=== PATIENT | male | born 1950 | race Caucasian/White ===

== ENCOUNTER 2016-09-07 06:17 | Day surgery (SDC) | payer OTHER ==
[~2016-09-07] VITALS: Ht 176.5 cm; Wt 62.0 kg
[~2016-09-07 06:17] MED LIST: AMIT50TA3 PO; CLINDAMYCIN 600 MG/54 ML D5W IV SCH; D5W AND 1/4NSS 1,000 ML IV SCH; DIAZ-165 PO; ERGO500037 PO; FURO80TA63 PO; GLAT1INJ SQ; GLIP-197 PO; HYDR2TAB48 PO; INSDGI SC; LORA0.5T12 PO; LSX80 PO; NIFE1TAB55 PO; NITR0.4S UT; PROC25SU PR; SENN-63 PO; SIMV10TA2 PO
[2016-09-07 06:59] VITALS: BP 152/63; PULSE 68; TEMP 36.5; O2SAT 99; Ht 176.5 cm; Wt 62.0 kg
--- NOTE | 2016-09-07 07:35 | History and Physical ---
History & Physical C: End stage renal disease Malfunctioning LUE AVF HPI: Mr. Hines is a 63-year-old M with ESRD, He had a basilic vein transposition performed. The dialysis unit is having trouble running him. Denies LYNN, fever, chills, chest pain, SOB, abd pain, N/V, rest pain, other complaints. ALLERGIES ARE FIONA INHIBITORS, CODEINE, MOTRIN, PENICILLIN AND PRAVACHOL. Medications: As per his home list of medications. No changes. Past Medical History: Positive for diabetes and ESRD on HD. Past Surgical History: Positive for cholecystectomy, creation of LUE AVF in .. Family history is positive for heart disease and diabetes. Social History: He quit smoking in 2003 and he does not drink. Review of 10 systems was obtained and negative. On physical examination the patient is awake, oriented x3. Blood pressure is 140/70. Head and neck without any lymph nodes. No carotid bruits. Lungs are clear. Heart regular rate and rhythm. Abdomen is benign. No aneurysm or dilatation was appreciated. Vascular exam: Radials, carotids and superficial temporal arteries are +2 bilaterally. Femorals are +2. Neurologic exam is intact. LUE AVF with excellent thrill/bruit noted. + local ecchymosis. Imp: End stage renal disease on HD Malfunctioning LUE AVF Plan: Patient admitted for LUE AVF fistulagram with intervention. Procedure, risks , benefits and alternatives discussed with pt, he expresses understanding and agreement.
--- NOTE | 2016-09-07 07:35 | Procedure Note ---
Pre-Mod Sedation Assessment General Date of Moderate Sedation: Sep 07, 2016. Vital Signs: Vital Signs Past 12 Hours Date Time Temp Pulse Resp B/P Pulse Ox O2 Delivery O2 Flow Rate FiO2 09/07/16 06:59 36.5 68 20 152/63 99 Room Air Pre-Sedation Airway Assessment Oral Cavity: WNL Smoking Status: Former Smoker Mallampati Classification: Class I ASA Classification: Class II Notes The planned sedation has been discussed with the patient and consent obtained. I have identified the patient, determined the appropriateness of sedation and have assessed the patient immediately prior to the procedure. All medicine(s) and interventions are by my order.
[2016-09-07] MEDS ORDERED: MIDAZOLAM HCL 1 MG/ML 2ML VIAL ONE (08:14)
[2016-09-07] MEDS ORDERED: FENTANYL CITRATE INJ 50 MCG/1 ML 2 ML VIAL ONE (08:14)
[2016-09-07] MEDS ORDERED: MIDAZOLAM HCL 1 MG/ML 2ML VIAL IV ONE (08:43)
[2016-09-07] MEDS ORDERED: FENTANYL CITRATE INJ 50 MCG/1 ML 2 ML VIAL IV ONE (08:43)
[2016-09-07] MEDS ORDERED: LIDOCAINE HCL 1% 20 ML VIAL INJ ONE (08:51)
[2016-09-07] MEDS ORDERED: OPTIRAY 300 IV ONE (08:51)
--- NOTE | 2016-09-07 09:04 | Procedure Note ---
Post-Moderate Sedation Plan General Date of Moderate Sedation Sep 07, 2016. Vital Signs: Vital Signs Past 12 Hours Date Time Temp Pulse Resp B/P Pulse Ox O2 Delivery O2 Flow Rate FiO2 09/07/16 06:59 36.5 68 20 152/63 99 Room Air Review - Discharge Plan Post Moderate Sedation Plan: On clinical assessment, the patient appears to have tolerated the conscious sedation without complications. Patient is recovering as anticipated. Patient will continue to be monitored by nursing and may be discharged when conscious sedation discharge criteria are met.
--- NOTE | 2016-09-07 09:04 | [facility] Post Operative Brief Note ---
Immediate Operative Summary Operative Date Sep 07, 2016. Pre-Operative Diagnosis End stage renal disease on HD Malfunctioning LUE AVF Post-Operative Diagnosis Same Procedure(s) Performed Fistulogram Percutaneous Transluminal Angioplaty venous Moderate Conscious Sedation ([id number]) Surgeon Carly Van Driver Helper Surgeon(s) None Estimated Blood Loss 3 Findings no residual narrowing Specimens None Anesthesia Local with moderate conscious sedation Complication(s) None Disposition
--- NOTE | 2016-09-07 09:06 | Discharge Instructions ---
Discharge Instructions Visit Reason for Visit: Malfunctioning Arteriovenous Fistula Discharge Discharge Diagnosis / Problem: Malfunctioning left upper arm fistula Discharge Goals Goal(s): Therapeutic intervention Activity Recommendations Activity Limitations: per Instructions/Follow-up section Anesthesia . Post Anesthesia Instructions: If you have had General Anesthesia or IV Sedation: * Do not drive today. * Resume driving when surgeon permits. * Do not make important decisions or sign legal documents today. * Call surgeon for: 1. Temperature elevations greater than 101 degrees F. 2. Uncontrollable pain. 3. Excessive bleeding. 4. Persistent nausea and vomiting. 5. Medication intolerance (nausea, vomiting or rash). * For nausea and vomiting use only clear liquids such as: tea, soda, bouillon until nausea subsides, then gradually increase diet as tolerated. * If you have any concerns or questions, call your surgeon's office. If physician is unavailable and it is an emergency, call 911 or go to the nearest emergency room. . Instructions / Follow-Up Instructions / Follow-Up Call [phone] to schedule a follow up appointment if one not already scheduled. SPECIAL CARE INSTRUCTIONS: Medications: * Continue to take your medications as directed. If you have been given a prescription for Plavix, please fill it immediately and take as directed. Incision Care: * Your puncture site may have some bruising and minor swelling for about one week. * You will have a small dressing covering your puncture site. You may remove the dressing after 24 hours and shower. You may let the warm soapy water run over it, but be sure to dry the puncture site well and keep it dry. * DO NOT IMMERSE THE INCISION IN A TUB/POOL/etc. UNTIL HEALED. * Puncture sites should be kept covered with a band-aid until it begins to heal. Restrictions: * Depending on whether you leg or arm was punctured to access the arteries, you will be required to lay flat, hold your arm still, or both, for about 4 hours after the procedure to prevent bleeding. * Limit your activity for the first 48 hours. You may walk and go up and down steps. Avoid excessive bending or movement at the puncture site. Possible Complications: * Excessive Swelling - after blood flow is improved you may notice increased swelling in the lower legs. This is a normal response. This usually depends on the amount of blockages in the leg, how long they have been there prior to your procedure and how much blood flow was restored. Elevating your legs will help to improve this. Please notify our office ([phone] ) if the swelling does not go away after lying in bed overnight. * Infection/Drainage/Bleeding - Drainage or bleeding from the puncture site should be minimal. If you have excessive bleeding or drainage, call our office ([phone]) right away. * Pain - You may experience some mild pain or soreness at your puncture site. If your pain does not improve, please contact our office ([phone]). Call your doctor and seek emergent treatment if you develop: * Temperature above 101 degrees * Any fever or chills * Any redness or purulent drainage from the puncture site * Any new dusky/blue colored toes or feet with coolness or sharp or aching pain. SKIN IRRITATION: * You may experience some redness and/or swelling in the area where radiation was administered. If any skin irritation occurs, please contact your family physician. FOLLOW UP VISIT: Keep any scheduled doctor appointments. Diet Recommendations Recommended Home Diet: resume previous diet Procedures Procedures Performed: Fistulogram Percutaneous Transluminal Angioplaty venous Moderate Conscious Sedation ([id number]) Pending Studies Studies pending at discharge: no Medical Emergencies . Who to Call and When: Medical Emergencies: If at any time you feel your situation is an emergency, please call 911 immediately. . Non-Emergent Contact Non-Emergency issues call your: Surgeon . . "Provider Documentation" section prepared by Nitin Carroll.
[2016-09-07 09:10] VITALS: BP 152/66; PULSE 74; TEMP 36.4; O2SAT 97
[2016-09-07 09:43] VITALS: BP 154/60; PULSE 68; TEMP 36.6; O2SAT 97
--- NOTE | 2016-09-07 09:54 | DIAGNOSTIC IMAGING REPORT ---
DATE OF PROCEDURE: 09/07/2016 PREOPERATIVE DIAGNOSIS: Malfunctioning left upper arm fistula. POSTOPERATIVE DIAGNOSIS: Same. PROCEDURE: 1. Fistulogram of the left upper arm fistula. 2. Balloon angioplasty of the fistula. 3. Moderate conscious sedation, 16 minutes. PROCEDURE INDICATIONS: The patient is a 66-year-old gentleman who has been having difficulty with runs. Fistulogram was recommended. He had increased bleeding and poor flow rates. The patient understood the risks, options and benefits and agreed to go ahead with this procedure. The patient was taken to the angiogram suite and placed in the supine position. After the left arm was prepped and draped in a sterile manner, local anesthetic was administered. A puncture was done of the proximal left upper arm cephalic vein fistula using a micropuncture technique. Once the sheath was inserted, a fistulogram was performed. This showed moderate narrowing within the stents in the distal portion of the upper arm, as well as just before the stent and other area of moderate narrowing. It was decided to balloon these areas to increase the flow. The rest of the central veins are widely patent with no stenosis noted. An 0.035 wire was then inserted. The sheath was exchanged for a 6-Citizen Of [place] sheath. A 8 x 6 armada balloon was inserted. The narrowings were ballooned. The narrowing within the stent had good results with no residual. There is still some moderate bands present after ballooning the stenosis proximal to the stent. At that point we exchanged the balloon to an 8 x 4 [employer] high pressure balloon. This area was redilated and it expanded nicely with no residual stenosis seen. The wire and balloon were removed. The sheath was pulled, pressure was applied. Adequate hemostasis was obtained. Sterile dressings were applied to the wound. The patient left the angio suite in good condition and tolerated the procedure well. KATLIN
== END 2016-09-07 10:10 | disposition home or self-care (01) ==
LOC: C.ACU 06:17
PROVIDERS: ATTEND Surgery Vascular Surgery
DX: T82.898A Other specified complication of vascular prosthetic devices, implants and grafts, initial encounter (principal); N18.6 End stage renal disease; E11.9 Type 2 diabetes mellitus without complications; Y84.8 Other medical procedures as the cause of abnormal reaction of the patient, or of later complication, without mention of misadventure at the time of the procedure; Z87.891 Personal history of nicotine dependence; Z88.0 Allergy status to penicillin; Z88.5 Allergy status to narcotic agent; Z88.8 Allergy status to other drugs, medicaments and biological substances; Z99.2 Dependence on renal dialysis; Z90.49 Acquired absence of other specified parts of digestive tract; Z82.49 Family history of ischemic heart disease and other diseases of the circulatory system

== ENCOUNTER → 2017-03-08 | Day surgery (SDC) | payer OTHER ==
[~2017-03-08] VITALS: Ht 177.8 cm; Wt 70.0 kg
[~2017-03-08] MED LIST changes: -CLINDAMYCIN 600 MG/54 ML D5W IV SCH; -DIAZ-165 PO; +FENTANYL CITRATE INJ 50 MCG/1 ML 2 ML VIAL IV ONE; +FENTANYL CITRATE INJ 50 MCG/1 ML 2 ML VIAL ONE; +LIDOCAINE HCL 1% 20 ML VIAL INJ ONE; +MIDAZOLAM HCL 1 MG/ML 2ML VIAL IV ONE; +MIDAZOLAM HCL 1 MG/ML 2ML VIAL ONE; +OPTIRAY 300 IV ONE; +SODIUM CHLORIDE 0.9% 1000ML IV SCH
[2017-03-08 07:04] VITALS: BP 175/80; PULSE 64; TEMP 37.1; O2SAT 100; Ht 177.8 cm; Wt 70.0 kg
--- NOTE | 2017-03-08 07:40 | History and Physical ---
History & Physical Date of Service Mar 08, 2017. History & Physical CC: End stage renal disease, malfunctioning LUE AVF HPI: Mr. Hines is a 63-year-old M with ESRD, He had a basilic vein transposition performed. The dialysis unit is having trouble running him. Denies LYNN, fever, chills, chest pain, SOB, abd pain, N/V, rest pain, other complaints. ALLERGIES ARE FIONA INHIBITORS, CODEINE, MOTRIN, PENICILLIN AND PRAVACHOL. Medications: As per his home list of medications. No changes. Past Medical History: Positive for diabetes and ESRD on HD. Past Surgical History: Positive for cholecystectomy, creation of LUE AVF in .. Family history is positive for heart disease and diabetes. Social History: He quit smoking in 2003 and he does not drink. Review of 10 systems was obtained and negative. On physical examination the patient is awake, oriented x3. Blood pressure is 140/70. Head and neck without any lymph nodes. No carotid bruits. Lungs are clear. Heart regular rate and rhythm. Abdomen is benign. No aneurysm or dilatation was appreciated. Vascular exam: Radials, carotids and superficial temporal arteries are +2 bilaterally. Femorals are +2. Neurologic exam is intact. LUE AVF with excellent thrill/bruit noted. + local ecchymosis. Imp: End stage renal disease on HD Malfunctioning LUE AVF Plan: Patient admitted for LUE AVF fistulagram with intervention. Procedure, risks , benefits and alternatives discussed with pt, he expresses understanding and agreement.
--- NOTE | 2017-03-08 07:41 | Procedure Note ---
Pre-Mod Sedation Assessment General Date of Moderate Sedation: Mar 08, 2017. Vital Signs: Vital Signs Past 12 Hours Date Time Temp Pulse Resp B/P (MAP) Pulse Ox O2 Delivery O2 Flow Rate FiO2 03/08/17 07:04 37.1 64 18 175/80 (111) 100 Room Air Pre-Sedation Airway Assessment Oral Cavity: Loose Teeth, Chipped Teeth Short Thick Neck: No Hx of Sleep Apnea: No Smoking Status: Former Smoker Mallampati Classification: Class I ASA Classification: Class III Notes The planned sedation has been discussed with the patient and consent obtained. I have identified the patient, determined the appropriateness of sedation and have assessed the patient immediately prior to the procedure. All medicine(s) and interventions are by my order.
[2017-03-08] MEDS: CLINDAMYCIN 600 MG/54 ML D5W IV SCH (09:05)
[2017-03-08 09:06] VITALS: BP 175/80; PULSE 64; TEMP 37.1; O2SAT 100
--- NOTE | 2017-03-08 10:01 | [facility] Post Operative Brief Note ---
Immediate Operative Summary Operative Date Mar 08, 2017. Pre-Operative Diagnosis Malfunctioning Fistula Post-Operative Diagnosis Same Procedure(s) Performed Left Upper Arm Fistulogram Percutaneous Transluminal Angioplasty Venous Peripheral Stent Venous Peripheral Moderate sedation [id number] Surgeon Carly Car Painter Surgeon(s) None Estimated Blood Loss 5 Findings stenosis outflow vein, 10% residual stenosis Specimens None Anesthesia Local with conscious sedation Complication(s) None Disposition
--- NOTE | 2017-03-08 10:03 | Discharge Instructions ---
Discharge Instructions Date of Service Mar 08, 2017. Visit Reason for Visit: End Stage Renal Disease Discharge Discharge Diagnosis / Problem: Malfunctioning fistula Discharge Goals Goal(s): Therapeutic intervention Activity Recommendations Activity Limitations: resume your previous activity Anesthesia . Post Anesthesia Instructions: If you have had General Anesthesia or IV Sedation: * Do not drive today. * Resume driving when surgeon permits. * Do not make important decisions or sign legal documents today. * Call surgeon for: 1. Temperature elevations greater than 101 degrees F. 2. Uncontrollable pain. 3. Excessive bleeding. 4. Persistent nausea and vomiting. 5. Medication intolerance (nausea, vomiting or rash). * For nausea and vomiting use only clear liquids such as: tea, soda, bouillon until nausea subsides, then gradually increase diet as tolerated. * If you have any concerns or questions, call your surgeon's office. If physician is unavailable and it is an emergency, call 911 or go to the nearest emergency room. . Instructions / Follow-Up Instructions / Follow-Up Call [phone] with any questions or concerns. SPECIAL CARE INSTRUCTIONS: Medications: * Continue to take your medications as directed. If you have been given a prescription for Plavix, please fill it immediately and take as directed. Incision Care: * Your puncture site may have some bruising and minor swelling for about one week. * You will have a small dressing covering your puncture site. You may remove the dressing after 24 hours and shower. You may let the warm soapy water run over it, but be sure to dry the puncture site well and keep it dry. * DO NOT IMMERSE THE INCISION IN A TUB/POOL/etc. UNTIL HEALED. * Puncture sites should be kept covered with a band-aid until it begins to heal. Restrictions: * Depending on whether you leg or arm was punctured to access the arteries, you will be required to lay flat, hold your arm still, or both, for about 4 hours after the procedure to prevent bleeding. * Limit your activity for the first 48 hours. You may walk and go up and down steps. Avoid excessive bending or movement at the puncture site. Possible Complications: * Excessive Swelling - after blood flow is improved you may notice increased swelling in the lower legs. This is a normal response. This usually depends on the amount of blockages in the leg, how long they have been there prior to your procedure and how much blood flow was restored. Elevating your legs will help to improve this. Please notify our office ([phone] ) if the swelling does not go away after lying in bed overnight. * Infection/Drainage/Bleeding - Drainage or bleeding from the puncture site should be minimal. If you have excessive bleeding or drainage, call our office ([phone]) right away. * Pain - You may experience some mild pain or soreness at your puncture site. If your pain does not improve, please contact our office ([phone]). Call your doctor and seek emergent treatment if you develop: * Temperature above 101 degrees * Any fever or chills * Any redness or purulent drainage from the puncture site * Any new dusky/blue colored toes or feet with coolness or sharp or aching pain. SKIN IRRITATION: * You may experience some redness and/or swelling in the area where radiation was administered. If any skin irritation occurs, please contact your family physician. FOLLOW UP VISIT: Keep any scheduled doctor appointments. Diet Recommendations Recommended Home Diet: resume previous diet Procedures Procedures Performed: Left Upper Arm Fistulogram Percutaneous Transluminal Angioplasty Venous Peripheral Stent Venous Peripheral Moderate sedation [id number] Pending Studies Studies pending at discharge: no Medical Emergencies . Who to Call and When: Medical Emergencies: If at any time you feel your situation is an emergency, please call 911 immediately. . Non-Emergent Contact Non-Emergency issues call your: Surgeon . . "Provider Documentation" section prepared by Nitin Carroll. .
[2017-03-08 10:05] VITALS: BP 127/56; PULSE 62; TEMP 36.6; O2SAT 98
--- NOTE | 2017-03-08 10:05 | Procedure Note ---
Post-Moderate Sedation Plan General Date of Moderate Sedation Mar 08, 2017. Vital Signs: Vital Signs Past 12 Hours Date Time Temp Pulse Resp B/P (MAP) Pulse Ox O2 Delivery O2 Flow Rate FiO2 03/08/17 09:57 60 18 138/64 96 Room Air 03/08/17 09:06 37.1 64 18 175/80 100 Room Air 03/08/17 07:04 37.1 64 18 175/80 (111) 100 Room Air Review - Discharge Plan Post Moderate Sedation Plan: On clinical assessment, the patient appears to have tolerated the conscious sedation without complications. Patient is recovering as anticipated. Patient will continue to be monitored by nursing and may be discharged when conscious sedation discharge criteria are met.
--- NOTE | 2017-03-08 10:18 | [facility] Operative Report ---
Operative Report Operative Date Mar 08, 2017. Pre-Operative Diagnosis Malfunctioning Fistula Post-Operative Diagnosis Same Procedure(s) Performed Left Upper Arm Fistulogram Percutaneous Transluminal Angioplasty Venous Peripheral Stent Venous Peripheral Moderate sedation [id number] Surgeon Carly Coach Tour Driver Surgeon(s) None Estimated Blood Loss 5 Findings Intra stent stenosis, 10% residual Specimens None Anesthesia Local with conscious sedation Complication(s) None Disposition Indications This is a 66-year-old gentleman with a left upper arm fistula. He is having difficulty at dialysis with prolonged bleeding a very loud bruit in the distal end of his fistula. A fistulogram with possible intervention was recommended. I have discussed the risks options and benefits of the procedure with the patient. The patient understands the risks options and benefits and agrees to the procedure. Description of Procedure The patient was taken to the angiogram suite and placed in the supine position. The left arm was then prepped and draped in a sterile manner. Local anesthetic was administered and a percutaneous puncture was then made of the proximal portion of the left arm AV fistula using micropuncture technique. Micropuncture wire and sheath were then inserted. A fistulogram was then performed. The fistulogram revealed an IntraStent stenosis in the outflow vein. The central veins are widely patent. Compression of the fistula and a retrograde injection was then performed which showed the proximal portion of the fistula and the arterial anastomosis be widely patent. An 035 wire was then inserted and the micropuncture sheath was exchanged to an 5 [place] sheath. Using a 7 x 4 balloon the area of IntraStent stenosis and the narrowing just proximal to the stent was ballooned. Residual stenosis was noted. After exchanging to a 6 [place] sheath, we then re ballooned the area using 8 x 4 balloon and again a small amount of residual stenosis was still present. Most of this was at the distal end of the stent. We decided to place a stent in the distal end overlapping the old stent. We placed a 10 x 4 absolute stent and overlapped the proximal end about 2cm into the previously placed stent. The distal end of the stent was then ballooned with a 10 x 2 balloon to flare out the edges. Completion fistulogram done at this time showed a widely patent fistula with approximately 10% residual stenosis in the stented area. There was a good thrill felt. The sheath was then pulled and pressure was applied. Adequate hemostasis was obtained. The patient left the angiogram suite in good condition and tolerated the procedure well. I attest to the content of the Intraoperative Record and any orders documented therein. Any exceptions are noted below.
[2017-03-08 10:35] VITALS: BP 131/60; PULSE 70; TEMP 36.6; O2SAT 97
== END | disposition home or self-care (01) ==
LOC: C.ACU 06:31
PROVIDERS: ATTEND Surgery Vascular Surgery
DX: T82.590A Other mechanical complication of surgically created arteriovenous fistula, initial encounter (principal); Y83.2 Surgical operation with anastomosis, bypass or graft as the cause of abnormal reaction of the patient, or of later complication, without mention of misadventure at the time of the procedure; N18.6 End stage renal disease; E11.9 Type 2 diabetes mellitus without complications; Z99.2 Dependence on renal dialysis; Z87.891 Personal history of nicotine dependence; Z90.49 Acquired absence of other specified parts of digestive tract; Z82.49 Family history of ischemic heart disease and other diseases of the circulatory system; Z83.3 Family history of diabetes mellitus

== ENCOUNTER → 2017-09-08 | Day surgery (SDC) | payer OTHER ==
[2017-08-30 11:08] VITALS: Ht 176.5 cm; Wt 67.5 kg
--- NOTE | 2017-08-30 11:54 | PAT Medication Instructions ---
Service Date Aug 30, 2017. Current Home Medication List Ergocalciferol (Vitamin D 95115 Unit), 1 CAP PO MONTHLY Furosemide (Furosemide), 80 MG PO QPM Furosemide (Lasix), 160 MG PO QAM Glipizide (Glipizide Er), 5 MG PO QAM Nifedipine (Nifedipine ER), 1 TAB PO QAM Nitroglycerin (Nitrostat), 0.4 MG UT PRN Sennosides (Senokot), 1 TAB PO DAILY PRN for PRN Simvastatin (Zocor), 10 MG PO QPM [Lantus], 6-10 UNITS SC UD Medication Instructions For Your Scheduled Surgery - Continue as directed: Ergocalciferol (Vitamin D 44931 Unit), 1 CAP PO MONTHLY - Hold the following medications the morning of surgery: Furosemide (Lasix), 160 MG PO QAM Glipizide (Glipizide Er), 5 MG PO QAM Sennosides (Senokot), 1 TAB PO DAILY PRN for PRN - Take the following medications the morning of surgery with a sip of water: Nitroglycerin (Nitrostat), 0.4 MG UT PRN (if needed) Nifedipine (Nifedipine ER), 1 TAB PO QAM - Take the following medications as scheduled the night before surgery: [Lantus], 6-10 UNITS SC UD Simvastatin (Zocor), 10 MG PO QPM Sennosides (Senokot), 1 TAB PO DAILY PRN for PRN(if needed) Nitroglycerin (Nitrostat), 0.4 MG UT PRN(if needed) Furosemide (Furosemide), 80 MG PO QPM [Lantus], 6-10 UNITS SC UD (only takes in the evening) If you have any questions please call us at [phone] or [phone] or [phone]
--- NOTE | 2017-08-30 12:47 | DIAGNOSTIC IMAGING REPORT ---
CHEST 2 VIEWS ROUTINE CLINICAL HISTORY: 66 years-old Male presenting with preoperative assessment, history of end-stage renal disease. TECHNIQUE: PA and lateral views of the chest were obtained. COMPARISON: 06/14/2014. FINDINGS: Double lumen tunneled right internal jugular central venous catheter terminates at the superior cavoatrial junction, new from prior. Vascular stent projects over the left axilla, also new from prior. Atherosclerosis of aortic arch. Cardiac silhouette top normal in size. Lungs and pleural spaces clear. Osseous structures normal. Upper abdomen normal. IMPRESSION: 1. No acute cardiopulmonary disease. Electronically signed by: Phong Klein M.D. 08/30/2017 12:46 PM Dictated Date/Time: 08/30/2017 12:45 PM
[2017-08-30 13:29] LABS: BASO % 0.1 %; BASO ABS # 0.01 K/uL (0-0.2); EOS % 2.9 %; HEMATOCRIT 29.9 % (42-52); HEMOGLOBIN 9.7 g/dL (14.0-18.0); IG# 0.05 K/uL (0.00-0.02); LYMPH % 15.3 %; LYMPH ABS # 1.04 K/uL (1.2-3.4); MEAN CELL VOLUME 98.7 fL (80-100); MEAN CORPUSCULAR HGB CONC 32.4 g/dl (32-36); MEAN PLATELET VOLUME 8.8 fL (7.4-10.4); MONO % 9.1 %; MONO ABS # 0.62 K/uL (0.11-0.59); NEUT % 71.9 %; NEUT ABS # 4.88 K/uL (1.4-6.5); PLATELET COUNT 227 K/uL (130-400); RED CELL DISTRIBUTION WIDTH CV 14.4 % (11.5-14.5); RED CELL DISTRIBUTION WIDTH SD 51.6 fL (36.4-46.3)
[2017-08-30 13:42] LABS: PTT PATIENT 31.5 SECONDS (21.0-31.0)
[2017-08-30 14:05] LABS: CALCIUM 7.9 mg/dl (8.5-10.1); CREATININE 3.29 mg/dl (0.60-1.40); POTASSIUM 5.5 mmol/L (3.5-5.1)
[~2017-09-08] VITALS: Ht 176.5 cm; Wt 67.5 kg
[~2017-09-08] MED LIST changes: -AMIT50TA3 PO; +ATROPINE SULFATE 0.1 MG/ML 5ML SYR IV PRN; +BUPIVACAINE/EPINEPHRINE 0.5% MPF 1:200,000 30 ML VIAL ONE; +CLINDAMYCIN 600 MG/54 ML D5W IV SCH; -D5W AND 1/4NSS 1,000 ML IV SCH; +EpHEDrine SULFATE INJ 50 MG/ML AMP IV PRN; -FENTANYL CITRATE INJ 50 MCG/1 ML 2 ML VIAL IV ONE; -GLAT1INJ SQ; +HEPARIN SOD (PORCINE) 1000 UNIT/ML 10 ML VIAL ONE; +HEPARIN SOD (PORCINE) 5000 UNIT/ML 1 ML VIAL ONE; -HYDR2TAB48 PO; -INSDGI SC; +LANTUS SC; -LIDOCAINE HCL 1% 20 ML VIAL INJ ONE; +LIDOCAINE HCL 1% 20 ML VIAL ONE; +LIDOCAINE HCL 2% 2 ML VIAL (20MG/ML) ONE; -LORA0.5T12 PO; +LYR50 PO; -MIDAZOLAM HCL 1 MG/ML 2ML VIAL IV ONE; -NIFE1TAB55 PO; -OPTIRAY 300 IV ONE; +PRCSR90 PO; -PROC25SU PR; +PROPOFOL IV EMULSION 10 MG/ML 20 ML VIAL IV ONE; +SODIUM BICARBONATE 8.4% INJ 50 MEQ/50 ML VIAL ONE; +SODIUM CHLORIDE 0.9% 1000ML 1,000 ML IV SCH; -SODIUM CHLORIDE 0.9% 1000ML IV SCH; +TRAM-10 PO
--- NOTE | 2017-09-08 05:44 | History and Physical ---
History & Physical Date of Service Sep 08, 2017. History & Physical CC: End stage renal disease HPI: Mr. Hines is a 63-year-old M with ESRD, He had a basilic vein transposition performed for dialysis. He now wants to switch to home dialysis. He is admitted now for insertion of a CAPD catheter. Denies LYNN, fever, chills , chest pain, SOB, abd pain, N/V, rest pain, other complaints. ALLERGIES ARE FIONA INHIBITORS, CODEINE, MOTRIN, PENICILLIN AND PRAVACHOL. Medications: As per his home list of medications. No changes. Past Medical History: Positive for diabetes and ESRD on HD. Past Surgical History: Positive for cholecystectomy, creation of LUE AVF in .. Family history is positive for heart disease and diabetes. Social History: He quit smoking in 2003 and he does not drink. Review of 10 systems was obtained and negative. On physical examination the patient is awake, oriented x3. Blood pressure is 140/70. Head and neck without any lymph nodes. No carotid bruits. Lungs are clear. Heart regular rate and rhythm. Abdomen is benign. No aneurysm or dilatation was appreciated. Vascular exam: Radials, carotids and superficial temporal arteries are +2 bilaterally. Femorals are +2. Neurologic exam is intact. LUE AVF with excellent thrill/bruit noted. + local ecchymosis. Imp: End stage renal disease on HD Plan: Patient admitted for an insertion of a CAPD catheter. Procedure, risks, benefits and alternatives discussed with pt, he expresses understanding and agreement.
[2017-09-08 06:26] VITALS: BP 167/59; PULSE 72; TEMP 36.5; O2SAT 92
[2017-09-08 06:58] LABS: CALCIUM 7.6 mg/dl (8.5-10.1); CREATININE 2.53 mg/dl (0.60-1.40); POTASSIUM 4.2 mmol/L (3.5-5.1)
--- NOTE | 2017-09-08 07:18 | History & Physical Bridge Note ---
H&P Re-Evaluation Bridge Note: I have examined the patient, reviewed the History & Physical and in the interval since the performance of the History & Physical I have noted the following changes of clinical significance: No changes noted
--- NOTE | 2017-09-08 08:29 | [facility] Post Operative Brief Note ---
Immediate Operative Summary Operative Date Sep 08, 2017. Pre-Operative Diagnosis End-Stage Renal Disease, Patient desires home dialysis Post-Operative Diagnosis End-Stage Renal Disease Procedure(s) Performed Insertion of Continuous Ambulatory Peritoneal Dialysis Catheter and Removal of Tunneled Dialysis Catheter Surgeon Dr. Carroll Masticator Surgeon(s) Dr. Lottie Fleming (Vascular Surgeon) Estimated Blood Loss 5 ml Findings Consistent with Post-Op Diagnosis Specimens A. Removed tunneled dialysis catheter Drains None Anesthesia Type MAC Complication(s) none Disposition Accompanied Pt To Recover: no Disposition: Recovery Room / PACU
--- NOTE | 2017-09-08 08:40 | Discharge Instructions ---
Discharge Instructions Date of Service Sep 08, 2017. Visit Reason for Visit: End Stage Renal Disease Discharge Discharge Diagnosis / Problem: End stage renal disase Discharge Goals Goal(s): Therapeutic intervention Activity Recommendations Activity Limitations: per Instructions/Follow-up section Shower/Bathe: keep incision dry Anesthesia . Post Anesthesia Instructions: If you have had General Anesthesia or IV Sedation: * Do not drive today. * Resume driving when surgeon permits. * Do not make important decisions or sign legal documents today. * Call surgeon for: 1. Temperature elevations greater than 101 degrees F. 2. Uncontrollable pain. 3. Excessive bleeding. 4. Persistent nausea and vomiting. 5. Medication intolerance (nausea, vomiting or rash). * For nausea and vomiting use only clear liquids such as: tea, soda, bouillon until nausea subsides, then gradually increase diet as tolerated. * If you have any concerns or questions, call your surgeon's office. If physician is unavailable and it is an emergency, call 911 or go to the nearest emergency room. . Instructions / Follow-Up Instructions / Follow-Up Call [phone] to schedule a follow up appointment if one not already scheduled. Make an appointment with the CAPD nurses for a dressing change. ACTIVITY RECOMMENDATIONS: See Above SPECIAL CARE INSTRUCTIONS: Call your doctor if: * Temperature above 101 degrees * Pain not relieved by pain medicine ordered * There is increased drainage or redness from any incision * You have any unanswered questions or concerns. Diet Recommendations Recommended Home Diet: resume previous diet Procedures Procedures Performed: Insertion of Continuous Ambulatory Peritoneal Dialysis Catheter and Removal of Tunneled Dialysis Catheter Pending Studies Studies pending at discharge: no Medical Emergencies . Who to Call and When: Medical Emergencies: If at any time you feel your situation is an emergency, please call 911 immediately. . Non-Emergent Contact Non-Emergency issues call your: Surgeon . . "Provider Documentation" section prepared by Nitin Carroll. .
[2017-09-08] MEDS: FENTANYL CITRATE INJ 50 MCG/1 ML 2 ML VIAL IV PRN ×4 (08:47→09:08)
--- NOTE | 2017-09-08 09:18 | Anesthesiology Progress Note ---
Anesthesia Post Op Note Date & Time Sep 08, 2017 at 09:18 Vital Signs Vital Signs Past 12 Hours Date Time Temp Pulse Resp B/P (MAP) Pulse Ox O2 Delivery O2 Flow Rate FiO2 09/08/17 09:05 68 15 118/56 95 Room Air 09/08/17 08:55 71 19 124/60 93 Room Air 09/08/17 08:45 70 17 118/57 100 Oxymask 10 09/08/17 08:39 36.1 82 16 118/58 99 Oxymask 10 09/08/17 06:26 36.5 72 18 167/59 (95) 92 Room Air Notes Mental Status: alert / awake / arousable, participated in evaluation Pt Amnestic to Procedure: Yes Nausea / Vomiting: adequately controlled Pain: adequately controlled Airway Patency, RR, SpO2: stable & adequate BP & HR: stable & adequate Hydration State: stable & adequate Anesthetic Complications: no major complications apparent
--- NOTE | 2017-09-08 09:26 | OPERATIVE REPORT ---
DATE OF OPERATION: 09/08/2017 PREOPERATIVE DIAGNOSIS: Endstage renal disease on hemodialysis. POSTOPERATIVE DIAGNOSIS: End-stage renal disease on hemodialysis. PROCEDURE: Open placement of peritoneal dialysis catheter, removal of PermCath. SURGEON: Nitin Carroll MD. BUDGET EXAMINER: Lottie Martinez MD. ANESTHESIA: Monitored anesthesia care plus local. SPECIMENS: PermCath. COMPLICATIONS: None. ESTIMATED BLOOD LOSS: 5 mL. INDICATIONS: Mr. Felipe Hines is a 67-year-old gentleman with end-stage renal disease on hemodialysis. He previously had a basilic vein transposition performed for dialysis and had a PermCath in place. He would like to switch to home dialysis. For this reason, he was recommended to undergo placement of a peritoneal dialysis catheter. The risks, benefits and alternatives were discussed with the patient and he consented to the procedure. DESCRIPTION OF PROCEDURE: The patient was taken to the operating room and placed in a supine position. His abdomen was prepped and draped in the usual sterile fashion. A safety timeout was performed and patient, and procedure were correctly identified. Local anesthesia was used to anesthetize the skin just below the umbilicus in the midline. A 3 cm incision was made just below the umbilicus in the midline and Bovie electrocautery was used to divide subcutaneous tissues down to the fascia. The fascia was identified and incised sharply. Peritoneum was identified and also incised sharply. The peritoneal cavity was entered and appeared to be adequate to accommodate a peritoneal dialysis catheter. PD catheter was then placed into the pelvis over a trocar. A 3-0 Vicryl was then used to close the peritoneum around the catheter. A 2-0 Prolene was then used to close the fascia surrounding the catheter, ensuring that the cuff was burried. The catheter was then tunneled subcutaneously to the patient's left ensuring that the cuff was appropriately positioned. The catheter was connected to fluid to ensure good inflow and clear return. Subcutaneous tissues over the midline incision were closed with 2-0 Vicryl. The skin was reapproximated with 4-0 Vicryl in a running subcuticular fashion. Dermabond skin glue was applied. Steri-Strips were used to secure the catheter to the skin and a sterile dressing was applied. We then turned our attention to the PermCath removal. The patient remained in the supine position. The right neck and upper chest were prepped and draped in the usual sterile fashion. Safety timeout was again performed and the patient, procedure, and sidedness were correctly identified. Local anesthesia was used to anesthetize the skin surrounding the tract of the catheter. The stitches holding the catheter to the chest wall were removed. Blunt dissection was used to free up the catheter from the subcutaneous tissue. With gentle traction on the catheter, the cuff was freed up. The catheter was removed without difficulty and manual pressure was held over the IJ access site as well as the tract of the catheter for approximately 5 minutes with good hemostasis. A sterile dressing was applied. The patient was awakened and taken to the recovery room in stable condition. He tolerated the procedure well and there were no immediate complications. Dr. Nitin Carroll was present for the entire procedure. I attest to the content of the Intraoperative Record and any orders documented therein. Any exceptions are noted below. KATLIN
[2017-09-08 09:30] VITALS: BP 130/62; PULSE 74; TEMP 36.3; O2SAT 94
[2017-09-08 10:00] VITALS: BP 147/65; PULSE 89; TEMP 36.4; O2SAT 95
== END | disposition home or self-care (01) ==
LOC: C.ACU 05:48
PROVIDERS: ATTEND Surgery Vascular Surgery
DX: N18.6 End stage renal disease (principal); E11.22 Type 2 diabetes mellitus with diabetic chronic kidney disease; Z82.49 Family history of ischemic heart disease and other diseases of the circulatory system; Z83.3 Family history of diabetes mellitus; Z87.891 Personal history of nicotine dependence; Z99.2 Dependence on renal dialysis

== ENCOUNTER 2017-09-30 17:35 | Inpatient (IN) | payer OTHER ==
[~2017-09-30] VITALS: Ht 175.3 cm; Wt 64.6 kg
[~2017-09-30 17:35] MED LIST changes: -ATROPINE SULFATE 0.1 MG/ML 5ML SYR IV PRN; -BUPIVACAINE/EPINEPHRINE 0.5% MPF 1:200,000 30 ML VIAL ONE; -CLINDAMYCIN 600 MG/54 ML D5W IV SCH; -ERGO500037 PO; -EpHEDrine SULFATE INJ 50 MG/ML AMP IV PRN; -FENTANYL CITRATE INJ 50 MCG/1 ML 2 ML VIAL ONE; -GLIP-197 PO; -HEPARIN SOD (PORCINE) 1000 UNIT/ML 10 ML VIAL ONE; -HEPARIN SOD (PORCINE) 5000 UNIT/ML 1 ML VIAL ONE; -LIDOCAINE HCL 1% 20 ML VIAL ONE; -LIDOCAINE HCL 2% 2 ML VIAL (20MG/ML) ONE; -LYR50 PO; -MIDAZOLAM HCL 1 MG/ML 2ML VIAL ONE; -PROPOFOL IV EMULSION 10 MG/ML 20 ML VIAL IV ONE; -SENN-63 PO; -SODIUM BICARBONATE 8.4% INJ 50 MEQ/50 ML VIAL ONE; -SODIUM CHLORIDE 0.9% 1000ML 1,000 ML IV SCH; -TRAM-10 PO
--- NOTE | 2017-09-30 19:57 | History and Physical ---
History & Physical Date & Time of Service: Sep 30, 2017 at 19:57 . Chief Complaint: Abdominal Pain, Malposition Of Dialysis Catheter . Primary Care Physician: Pedro Machado M.D. . History of Present Illness Source: patient, clinic records, hospital records 67-year-old male followed by Dr. Machado for Family Medicine and Dr. Wetzel for Nephrology. History of chronic kidney disease stage V, diabetes mellitus type 2, and other problems as noted below. CKD has been managed with hemodialysis for some time. Developed an abscess in or near AV fistula in the left upper extremity about 2 months ago. Was hospitalized at [facility] for treatment of the infection. Temporary hemodialysis catheter was placed and was utilized while the infection in his left arm was being treated. Plan was made to transition to peritoneal dialysis. Peritoneal dialysis catheter placed 09/08/17. Over the past 1-2 days he has developed pain in the lower abdomen at the site of the peritoneal dialysis catheter insertion. Pain is severe. It is aggravated by coughing and radiates toward the left groin. Has some nausea, no emesis, diarrhea, melena, hematochezia. No fever, chills. Has had intermittent night sweats for the past few months. Underwent hemodialysis today. Referred to Emergency Department at [facility] for evaluation of abdominal pain. Received IV morphine with improvement pain. CT demonstrated a fluid collection in the region of the peritoneal dialysis catheter. Case was discussed with Nephrology and patient was referred to [facility] for further evaluation and management. . Past Medical/Surgical History Chronic and Resolved Medical Problems: (1) Anemia in chronic renal disease Status: Chronic (2) Carotid arterial disease Status: Chronic (3) Celiac disease Status: Chronic (4) Chronic pancreatitis Status: Chronic (5) Diabetes mellitus due to underlying condition with chronic kidney disease on chronic dialysis, with long-term current use of insulin Status: Chronic (6) Diabetic neuropathy Status: Chronic (7) Diabetic retinopathy Status: Chronic (8) DM type 2 (diabetes mellitus, type 2) Status: Chronic (9) ESRD (end stage renal disease) on dialysis Status: Chronic (10) GERD (gastroesophageal reflux disease) Status: Chronic (11) Hyperlipemia Status: Chronic (12) Hypertension Status: Chronic (13) Intraductal papillary mucinous adenoma of pancreas Status: Chronic (14) Multiple sclerosis Status: Chronic Surgical Problems: (1) AV fistula Permanent Comment: left upper extremity Status: Chronic (2) History of ERCP Permanent Comment: 05/2017 - Dr Jayme LEVY. choledocholithiasis Status: Resolved (4) Peritoneal dialysis catheter in place Permanent Comment: Placed 09/08/[address] Carroll Status: Chronic (6) Status post cholecystectomy Status: Chronic Family History FATHER Hypertension Heart disease MOTHER Diabetes mellitus Social History Smoking Status: Former Smoker Alcohol Use: none Allergies Coded Allergies: Codeine (Verified Allergy, Severe, THROAT SWELLS, 09/08/17) Penicillins (Verified Allergy, Severe, ANAPHYLAXIS, 09/08/17) Hydromorphone (Verified Allergy, Mild, throat swelling, nausea, 09/08/17) Acetaminophen (Unverified Allergy, Unknown, "SWELL UP", 09/08/17) PER PCP RECORDS Bismuth Subsalicylate (Unverified Allergy, Unknown, HIVES, 09/08/17) PER PCP RECORDS Ciprofloxacin (Unverified Allergy, Unknown, HIVES, 09/08/17) PER PCP RECORDS Magnesium Hydroxide (Unverified Allergy, Unknown, RASH, 08/30/17) PER PCP RECORDS Oxycodone (Unverified Allergy, Unknown, "SWELL UP", 08/30/17) PER PCP RECORDS FIONA Inhibitors (Verified Adverse Reaction, Mild, NAUSEA AND VOMITING, HYPERKALEMIA, 08/30/17) Ibuprofen (Verified Adverse Reaction, Mild, GI UPSET, 08/30/17) Pravastatin (Verified Adverse Reaction, Mild, NAUSEA AND VOMITING, 08/30/17 ) Home Medications Scheduled B-Complex W/ C & Folic Acid (Susannah-Som), 1 TAB PO DAILY Calcium Acetate (Phosphate Bin (Phoslo 667 Mg), 0 PO UD Furosemide (Furosemide), 80 MG PO QPM Furosemide (Lasix), 160 MG PO QAM Hydralazine Hcl (Apresoline), 25 MG PO BID Nifedipine (Nifedipine ER), 1 TAB PO QAM Nitroglycerin (Nitrostat), 0.4 MG UT PRN Pancrelipase (Lipase-Protease- (Creon [id number]), 1 CAP PO ACHS Pregabalin (Lyrica), 50 MG PO BID Simvastatin (Zocor), 10 MG PO QPM Teriflunomide (Aubagio), 14 MG PO DAILY [Lantus], 6-10 UNITS SC UD Scheduled PRN Ondansetron (Ondansetron HCl), 4 MG PO Q8 PRN for Nausea or Vomiting Review of Systems Constitutional: + sweats, No fever, No chills Eyes: + problem reported (Cataracts) ENT: + nasal symptoms (Sinus congestion), No sore throat Respiratory: + cough (Mild, nonproductive), + shortness of breath (Mild) Cardiovascular: No chest pain, No edema Abdomen: + problem reported (As noted above in HPI) Musculoskeletal: + joint pain (Right knee pain) Genitourinary - Male: No hematuria, No dysuria Neurologic: + weakness, + problem reported (Multiple sclerosis, ambulates with cane) Endocrine: + fatigue, + problem reported (Blood sugars well controlled), No excessive thirst, No excessive urination Hematologic / Lymphatic: + abnormal bleeding/bruising Integumentary: No rash, No new/changing skin lesions Physical Exam General Appearance: no apparent distress, + mild distress, + thin Head: atraumatic Eyes: normal inspection, PERRL, EOMI, sclerae normal, + pertinent finding ( Conjunctivae clear) ENT: normal ENT inspection, hearing grossly normal, + pertinent finding ( Oropharynx clear) Neck: thyroid normal, trachea midline Respiratory/Chest: lungs clear (Auscultation and percussion), no respiratory distress, no accessory muscle use Cardiovascular: regular rate, rhythm, no edema, no gallop, no JVD, no murmur, normal peripheral pulses Abdomen/GI: normal bowel sounds, soft, no organomegaly, + pertinent finding ( Lower abdominal peritoneal dialysis catheter with surrounding tenderness; no erythema or drainage) Extremities/Musculoskelatal: no calf tenderness, + pertinent finding (No cyanosis or digital clubbing; AV fistula left upper extremity) Neurologic/Psych: soil sampler II-XII nml as tested (PERRL, EOMI, no facial palsy, no dysarthria), no motor/sensory deficits (Motor testing of upper and lower extremities grossly intact), alert, normal mood/affect, oriented x 3 Skin: normal color, warm/dry, no rash Lymphatic: no adenopathy (Cervical) Diagnostics Laboratory Results Labs performed earlier today at [facility] at 1400: Hemoglobin 9.9, white count 6950, platelet count 219,000. PT 12.7, INR 0.98. Sodium 139, potassium 4.0, chloride 97, CO2 27, BUN 18, creatinine 1.8, glucose 273. . Diagnostic Radiology Diagnostic imaging performed today at [facility]: Chest x-ray showed minimal left lower lobe atelectasis, no infiltrates, effusions, CHF. CT of abdomen and pelvis demonstrated peritoneal dialysis catheter in left lower abdomen with the pigtail located within a 3.8 x 5.3 x 8.0 cm collection of extraperitoneal fluid posterior to the left abdominal rectus. . Impression Assessment and Plan ABDOMINAL PAIN / MALFUNCTION PERITONEAL DIALYSIS CATHETER Severe abdominal pain with CT findings as summarized above. No fever or leukocytosis. Check procalcitonin with next labs. Consult Vascular Surgery. CKD V 3-hour hemodialysis treatment today. Management per Nephrology. HYPERTENSION Continue nifedipine and hydralazine with hold parameters. PULMONARY ATELECTASIS Incentive spirometry. CELIAC DISEASE Gluten-free diet. 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 Well-controlled. Hgb A1C 6.4 on 08/09/17. Glipizide recently discontinued. Uses Lantus, usually 6-10 units HS. Nauseated this evening. Fingerstick blood sugar 142. Lantus 4 units tonight, then per sliding scale. NovoLog coverage with meals. DIABETIC NEUROPATHY Continue pregabalin. MULTIPLE SCLEROSIS Continue teriflunomide. PT / OT if hospital stay prolonged. VTE PROPHYLAXIS No anticoagulants in anticipation of possible invasive procedures. SCD's. Ambulate. RESUSCITATION STATUS Discussed with patient. He has a living will. He would like resuscitation attempted in the event of a cardiopulmonary arrest if there is a reasonable chance of a meaningful recovery, but does not want prolonged extraordinary measures if prognosis is poor. Therefore, code status = "Level 1" (full resuscitation). DISPOSITION Observation status on Med-Surg Unit per Case Management. Will need changed to inpatient status if prolonged hospital stay necessary or if hemodialysis is to be performed. Family Medicine follow-up with Dr. Machado. Nephrology follow-up with Dr. Wetzel. . Resuscitation Status VTE Prophylaxis Will order VTE Prophylaxis: Yes
[2017-09-30 19:58] VITALS: BMI 22.3
[2017-09-30] MEDS ORDERED: PREGABALIN 50 MG CAP PO ONE (21:53)
[2017-09-30] MEDS ORDERED: INSULIN GLARGINE SOLOSTAR 100 UNITS/ML 3 ML PEN SC ONE (22:00)
[2017-09-30] MEDS ORDERED: NITROGLYCERIN 0.4 MG SL PER TAB CHARGE UT PRN (22:00)
[2017-09-30] MEDS ORDERED: CALCIUM ACETATE 667MG GELCAP PO PRN (22:00)
[2017-09-30] MEDS ORDERED: PANC1200 PO (22:07)
[2017-09-30] MEDS ORDERED: LYR/50 PO (22:07)
[2017-09-30] MEDS ORDERED: APR25 PO (22:07)
[2017-09-30] MEDS ORDERED: [UNRECOGNIZED DRUG - CODE] PO (22:07)
[2017-09-30] MEDS ORDERED: ONDA4TAB9 PO (22:07)
[2017-09-30] MEDS ORDERED: B-COTAB97 PO (22:07)
[2017-09-30] MEDS ORDERED: CALC667C PO (22:07)
[2017-09-30] MEDS ORDERED: GLUCOSE 10 TABS/TUBE PO PRN (22:15)
[2017-09-30] MEDS ORDERED: DEXTROSE 50% 50 ML SYR IV PRN (22:15)
[2017-09-30] MEDS ORDERED: GLUCOSE 40% GEL 15 GM TUBE PO PRN (22:15)
[2017-09-30] MEDS ORDERED: GLUCAGON FOR INJ 1 MG VIAL SQ PRN (22:15)
[2017-09-30] MEDS: MoRPHine SULFATE 2 MG/ML CARP IV PRN (22:28)
[2017-09-30 22:50] VITALS: BP 161/64; PULSE 68; TEMP 36.3; O2SAT 94
[2017-10-01] VITALS (12 sets, daily range): BP systolic 111–170; BP diastolic 61–80; PULSE 61–75; TEMP 36.1–36.8; O2SAT 90–95
[2017-10-01] MEDS ORDERED: PREGABALIN 50 MG CAP ONE (00:26)
[2017-10-01] MEDS: MoRPHine SULFATE 2 MG/ML CARP IV PRN ×7 (00:45→21:30)
[2017-10-01] MEDS ORDERED: IV FLUIDS COMPLETED PRN (01:30)
[2017-10-01 07:25] LABS: HEMATOCRIT 30.7 % (42-52); MEAN CORPUSCULAR HEMOGLOBIN 32.6 pg (25-34); MEAN CORPUSCULAR HGB CONC 32.6 g/dl (32-36); MEAN PLATELET VOLUME 8.7 fL (7.4-10.4); PLATELET COUNT 198 K/uL (130-400); RED CELL DISTRIBUTION WIDTH CV 13.7 % (11.5-14.5); RED CELL DISTRIBUTION WIDTH SD 50.1 fL (36.4-46.3); WHITE BLOOD COUNT 8.39 K/uL (4.8-10.8)
[2017-10-01 07:57] LABS: CALCIUM 8.3 mg/dl (8.5-10.1); CREATININE 2.97 mg/dl (0.60-1.40); POTASSIUM 5.7 mmol/L (3.5-5.1)
[2017-10-01] MEDS: PREGABALIN 50 MG CAP PO SCH ×2 (08:14→21:20)
[2017-10-01] MEDS: ONDANSETRON INJ 2 MG/ML 2 ML VIAL IV PRN ×2 (08:14→18:35)
[2017-10-01] MEDS: FUROSEMIDE 80 MG TAB PO SCH ×2 (08:16→21:22)
[2017-10-01] MEDS: NIFEdipine 30 MG CR TAB PO SCH (08:17)
[2017-10-01] MEDS: PANCREAZE (LIPASE 4,200U) CAP PO SCH ×4 (08:18→21:21)
[2017-10-01] MEDS: CALCIUM ACETATE 667MG GELCAP PO SCH ×3 (08:18→16:30)
[2017-10-01] MEDS: INSULIN ASPART 100 UNITS/ML 3 ML PEN SC SCH ×4 (08:22→21:18)
--- NOTE | 2017-10-01 09:19 | Surgery Consultation ---
Consultation Date of Service Oct 01, 2017. Chief Complaint abd pain, recent CAPD catheter insertion History of Present Illness The patient is a 67 year old male with multiple medical problems, including ESRD on HD, s/p recent CAPD catheter insertion by Dr Carly sloan 3 wks ago, seen in consultation today for abd pain possibly related to his CAPD catheter. Pt states he had post op pain for about a week post op, then was improving daily. States they attempted use of his CAPD catheter at his unit 3 days ago, but did not flush or drain well. States he began having severe pain in L lower abd 2 days ago and has not improved. Only relief with pain medication. Went to local ED and was transferred here for eval after CT scan there showed a fluid collection and location of the CAPD catheter in an extraperitoneal position. Admits associated N and dry heaving when pain at its worst. Denies erythema or warmth or drainage from surgical site. Pt denies fever, chills, chest pain, SOB, rest pain, claudication, other complaints. Has continued using his LUE AVF in meantime. Vitals Vital Signs Past 12 Hours Date Time Temp Pulse Resp B/P (MAP) Pulse Ox O2 Delivery O2 Flow Rate FiO2 10/01/17 07:50 36.6 75 14 170/80 (110) 95 Room Air 10/01/17 00:47 36.8 61 20 154/61 (92) 91 Room Air 10/01/17 00:00 Room Air 09/30/17 22:50 36.3 68 16 161/64 (96) 94 Room Air Allergies Coded Allergies: Codeine (Verified Allergy, Severe, THROAT SWELLS, 09/08/17) Penicillins (Verified Allergy, Severe, ANAPHYLAXIS, 09/08/17) Hydromorphone (Verified Allergy, Mild, throat swelling, nausea, 09/08/17) Acetaminophen (Unverified Allergy, Unknown, "SWELL UP", 09/08/17) PER PCP RECORDS Bismuth Subsalicylate (Unverified Allergy, Unknown, HIVES, 09/08/17) PER PCP RECORDS Ciprofloxacin (Unverified Allergy, Unknown, HIVES, 09/08/17) PER PCP RECORDS Magnesium Hydroxide (Unverified Allergy, Unknown, RASH, 08/30/17) PER PCP RECORDS Oxycodone (Unverified Allergy, Unknown, "SWELL UP", 08/30/17) PER PCP RECORDS FIONA Inhibitors (Verified Adverse Reaction, Mild, NAUSEA AND VOMITING, HYPERKALEMIA, 08/30/17) Ibuprofen (Verified Adverse Reaction, Mild, GI UPSET, 08/30/17) Pravastatin (Verified Adverse Reaction, Mild, NAUSEA AND VOMITING, 08/30/17 ) Home Medications Scheduled B-Complex W/ C & Folic Acid (Susannah-Som), 1 TAB PO DAILY Calcium Acetate (Phosphate Bin (Phoslo 667 Mg), 0 PO UD Furosemide (Furosemide), 80 MG PO QPM Furosemide (Lasix), 160 MG PO QAM Hydralazine Hcl (Apresoline), 25 MG PO BID Nifedipine (Nifedipine ER), 1 TAB PO QAM Nitroglycerin (Nitrostat), 0.4 MG UT PRN Pancrelipase (Lipase-Protease- (Creon 44564), 1 CAP PO ACHS Pregabalin (Lyrica), 50 MG PO BID Simvastatin (Zocor), 10 MG PO QPM Teriflunomide (Aubagio), 14 MG PO DAILY [Lantus], 6-10 UNITS SC UD Scheduled PRN Ondansetron (Ondansetron HCl), 4 MG PO Q8 PRN for Nausea or Vomiting Problem List Medical Problems: (1) Anemia in chronic renal disease (2) Carotid arterial disease (3) Celiac disease (4) Chronic pancreatitis (5) Diabetes mellitus due to underlying condition with chronic kidney disease on chronic dialysis, with long-term current use of insulin (6) Diabetic neuropathy (7) Diabetic retinopathy (8) DM type 2 (diabetes mellitus, type 2) (9) ESRD (end stage renal disease) on dialysis (10) GERD (gastroesophageal reflux disease) (11) Hyperlipemia (12) Hypertension (13) Intraductal papillary mucinous adenoma of pancreas (14) Multiple sclerosis Surgical Problems: (1) AV fistula (2) History of ERCP (3) Hx of cholecystectomy (4) Peritoneal dialysis catheter in place (5) Peritoneal dialysis catheter in place (6) Status post cholecystectomy Surgical / Medical History Hx Cardiac Surgery: No Hx Cancer Surgery: No Hx Thoracic Surgery: No Hx Urinary Tract Surgery: No Past Medical/Surgical History: Heart Disease, High Cholesterol, Hypertension, Kidney Disease Family History Diabetes mellitus MOTHER Heart disease FATHER Hypertension FATHER Social History Smoking Status: Never Smoker Hx Tobacco Use In Past Year?: No (QUIT 2006 - SMOKED FOR 20+ YRS - 3PPD) Hx Alcohol Use - Type & Amnt: No Hx Substance Use -Type & Amnt: No Review of Systems Constitutional: + malaise, No chills, No fever Skin: No change in color Eyes: No visual changes ENMT: No sore throat Respiratory: No cough, No CAMILO, No short of breath Cardiovascular: No chest pain, No syncope, No edema, No intermittent claudication Gastrointestinal: + abdominal pain, + nausea, + vomiting Neurologic: No dizziness, No weakness, No headache, No lethargy, No tingling Physical Exam Constitutional: General Apperance: well-nourished, well-developed Level of Distress: NAD, acutely ill, chronically ill Psychiatric: Mental Status: active & alert, normal mood, normal affect Orientation: oriented except where noted, to time, to place, to person Memory: recent memory normal, remote memory normal Head: normocephalic, atraumatic Eyes: EOM: EOMI ENMT: normal ENT inspection, hearing grossly normal Neck: supple, trachea midline Lungs: Respiratory effort: no dyspnea Auscultation: no rales/crackles, no rhonchi, decreased breath sounds Cardiovascular: Apical Impulse: not displaced Heart Auscultation: RRR, no rubs, no gallops Peripheral Pulses: Pulses: full and equal, in all extremities except if noted Bruits: none appreciated Carotid Pulse: normal on the left, normal on the right Brachial Pulses: normal on the left, normal on the right, pertinent finding (AVF good thrill/bruit) Radial Pulse: normal on the left, normal on the right Femoral Pulse: normal on the left, normal on the right Posterior Tibialis Pulse: decreased on the left, decreased on the right Dorsalis Pedis Pulse: decreased on the left, decreased on the right Abdomen: Bowel Sounds: normal Inspection & Palpation: soft, pertinent finding (distention and tenderness LLQ and suprapubic area. No erythema. Incisions C/D/I, no warmth or drainage. well healed.) Extremities: Upper Right: no cyanosis, no edema, no varicosities Upper Left: no cyanosis, no edema, no varicosities Lower Right: no cyanosis, no edema, no varicosities Lower Left: no cyanosis, no edema, no varicosities Neurologic: Cranial Nerves: grossly intact Sensation: grossly intact Assessment and Plan ASSESSMENT and PLAN: Malposition CAPD catheter ABD pain ESRD on HD Pt discussed with Dr Carroll. No sign of infection at this time, although will review CT scan to be sure. Pain likely d/t fluid accumulation from flushing/attempting use at HD unit while catheter malpositioned. Planning on laparascopic repositioning of CAPD catheter next week in OR. Recommend pain control in meantime. Pt agreeable.
--- NOTE | 2017-10-01 09:33 | DIAGNOSTIC IMAGING REPORT ---
CT OF THE ABDOMEN AND PELVIS WITHOUT CONTRAST CLINICAL HISTORY: Abdominal pain. COMPARISON STUDY: CT of the abdomen and pelvis September 30, 2017. TECHNIQUE: Axial images of the abdomen and pelvis were obtained without IV contrast. Images were reviewed in the axial, sagittal, and coronal planes. A dose lowering technique was utilized adhering to the principles of ALARA. FINDINGS: The heart is moderately enlarged. Interlobular septal thickening within the lower lungs favors mild pulmonary edema. There are mild airspace opacities within the lingula. No pneumatosis, free air or portal venous gas is present. Evaluation of the abdomen and pelvis is suboptimal on this unenhanced exam. The liver, spleen, adrenal glands and kidneys are unremarkable. Note is made of a lobulated water attenuation 4.1 cm lesion within the pancreatic body. There may be an additional smaller lesion within the pancreatic head. There is pancreatic glandular atrophy. The small bowel is mildly dilated and fluid-filled. There is feces within the distal small bowel. A definite transition point is not identified. The findings favor stasis. There is trace fluid within the right lower quadrant. Note is made of a peritoneal dialysis catheter within the left lower quadrant which is extraperitoneal in location. The catheter is coiled within a fluid collection measures 7 x 5.6 x 4.4 cm which is located immediately posterior to the left rectus muscle and may be within the posterior aspect of the left rectus sheath given its configuration. A hematocrit level is noted within this collection which suggests hemorrhage. This is similar to exam of September 30, 2017. The bladder is moderately distended. No suspicious osseous lesions are present. There is extensive atherosclerotic plaque of the abdominal aorta. IMPRESSION: 1. Malpositioned left lower quadrant peritoneal dialysis catheter. Catheter coiled within an extraperitoneal fluid collection that measures 7 x 5.6 x 4.4 cm and is immediately posterior to the left rectus muscle and may be within the rectus sheath. The catheter is extraperitoneal in location. Hematocrit level suggesting hemorrhage within the collection. No change since previous exam of September 30, 2017. 2. Mildly dilated fluid-filled small bowel with feces within the distal small bowel. No transition point identified. The findings favor an ileus/stasis. A small bowel obstruction would be difficult to exclude but is considered less likely. 3. 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 A follow-up CT of the pancreas is recommended. 4. Mild interstitial pulmonary edema. Electronically signed by: Krystian Malagon M.D. 10/01/2017 9:32 AM Dictated Date/Time: 10/01/2017 9:14 AM
[2017-10-01] MEDS ORDERED: NURSING VERBAL MED ORDER ONE ×3 (09:45→11:45)
--- NOTE | 2017-10-01 11:05 | Progress Note ---
Medicine Progress Note Date & Time of Visit: Oct 01, 2017 at 10:26. Subjective Pt was seen and examined Lying in bed with no distress Pt said that he continue to have tenderness in the left side mid/lower abdomen Pain is below the peritoneal dialysis catheter Pt said that he has been itching alot Also he said that he has a dry hive pain seems to control with the pain med Denies any chest pain, palpitation, dizziness an fever Objective Last 8 Hrs Date Time Temp Pulse Resp B/P (MAP) Pulse Ox O2 Delivery O2 Flow Rate FiO2 10/01/17 07:50 36.6 75 14 170/80 (110) 95 Room Air Physical Exam: General- No acute distress Head- atraumatic Eyes- PERRL, EOMI ENT- oropharynx clear Neck- supple, no JVD Lungs- clear to auscultation Heart- regular rhythm; no murmur Abdomen- +tenderness below the peritoneal cath, no drainage, no erythema, no warmness Extremities- no pretibial edema, no calf tenderness Neuro- alert, oriented x 3; PERRL, EOMI Skin- warm & dry Laboratory Results: Last 24 Hours Test 09/30/17 20:32 10/01/17 07:02 10/01/17 08:11 Bedside Glucose 142 mg/dl 190 mg/dl White Blood Count 8.39 K/uL Red Blood Count 3.07 M/uL Hemoglobin 10.0 g/dL Hematocrit 30.7 % Mean Corpuscular Volume 100.0 fL Mean Corpuscular Hemoglobin 32.6 pg Mean Corpuscular Hemoglobin Concent 32.6 g/dl RDW Standard Deviation 50.1 fL RDW Coefficient of Variation 13.7 % Platelet Count 198 K/uL Mean Platelet Volume 8.7 fL Sodium Level 136 mmol/L Potassium Level 5.7 mmol/L Chloride Level 105 mmol/L Carbon Dioxide Level 26 mmol/L Anion Gap 6.0 mmol/L Blood Urea Nitrogen 29 mg/dl Creatinine 2.97 mg/dl Est Creatinine Clear Calc Drug Dose 23.1 ml/min Estimated GFR () 24.3 Estimated GFR (Non- 20.9 BUN/Creatinine Ratio 9.7 Random Glucose 162 mg/dl Calcium Level 8.3 mg/dl Procalcitonin 0.40 ng/ml Assessment & Plan LEFT SIDED ABDOMINAL PAIN Due to malfunction peritoneal dialysis cath CT abd showed malpositioned left lower quadrant peritoneal dialysis catheter. Catheter coiled within an extraperitoneal fluid collection that measures 7 x 5.6 x 4.4 cm No signs of infection No leukocytosis,procalcitonin normal and afebrile vascular surgery on board Plan to reposition the peritoneal dialysis cath on Wednesday If pain improves, pt can discharge and will get the procedure done on Wed If pain continue will continue monitor pt. Starting on clear liquid diet Continue pain control HYPERKALEMIA Due to CKD stage 5 K 5.7 today Consider Kayexalate if ok by Nephro Monitor BMP Next HD tomorrow CKD V Had HD done yesterday Nephrology on board No sign of fluid overload INTRADUCTAL PAPILLARY MUCINOUS NEOPLASM CT Abd showed . 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 Delacruz for the last 3yrs as per patient Stable HYPERTENSION BP elevated Possible related to pain Continue nifedipine and hydralazine Will add hydralazine IV prn PULMONARY ATELECTASIS Incentive spirometry. Stable CELIAC DISEASE Gluten-free diet. 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 Well-controlled. Hgb A1C 6.4 on 08/09/17. Continue Lantus. DIABETIC NEUROPATHY Continue pregabalin. MULTIPLE SCLEROSIS Continue teriflunomide. PT / OT VTE PROPHYLAXIS SCD's. Will start on heparin subd RESUSCITATION STATUS FULL CODE DISPOSITION Family Medicine follow-up with Dr. Machado. Nephrology follow-up with Dr. Wetzel. Consultants: Vascular Nephro Current Inpatient Medications: Current Inpatient Medications Medications (Trade) Dose Ordered Sig/Emilia Route Start Time Stop Time Status Last Admin Dose Admin Morphine Sulfate (MoRPHine SULFATE INJ) 2 mg Q2H PRN IV 09/30/17 22:00 10/14/17 21:59 10/01/17 08:15 2 MG Ondansetron HCl (Zofran Inj) 4 mg Q6H PRN IV 09/30/17 22:00 10/30/17 21:59 10/01/17 08:14 4 MG Glucose (Glucose 40% Gel) 15-30 GRAMS 15 GRAMS... UD PRN PO 09/30/17 22:15 10/30/17 22:14 Glucose (Glucose Chew Tab) 4-8 Tablets 4 Tabl... UD PRN PO 09/30/17 22:15 10/30/17 22:14 Dextrose (Dextrose 50% 50ML Syringe) 25-50ML OF 50% DW IV FOR... UD PRN IV 09/30/17 22:15 10/30/17 22:14 Glucagon (Glucagon Inj) 1 mg UD PRN SQ 09/30/17 22:15 10/30/17 22:14 Calcium Acetate (Phoslo Cap) 2,001 mg AC PO 10/01/17 06:30 10/31/17 06:29 Furosemide (Lasix Tab) 80 mg QPM PO 10/01/17 21:00 10/31/17 20:59 Furosemide (Lasix Tab) 160 mg QAM PO 10/01/17 08:00 10/31/17 07:59 10/01/17 08:16 160 MG Hydralazine HCl (Apresoline Tab) 25 mg BID PO 10/01/17 08:00 10/31/17 07:59 10/01/17 08:16 25 MG Nitroglycerin (Nitrostat Tab) 0.4 mg PRN PRN UT 09/30/17 22:00 10/30/17 21:59 Pregabalin (Lyrica Cap) 50 mg BID PO 10/01/17 08:00 10/31/17 07:59 10/01/17 08:14 50 MG Amylase/Lipase/ Protease (Pancreaze (Lipase 4,200U) Cap) 3 cap ACHS PO 10/01/17 06:30 10/31/17 06:29 10/01/17 08:18 3 CAP Nifedipine (Procardia Xl Tab) 90 mg QAM PO 10/01/17 08:00 10/31/17 07:59 10/01/17 08:17 90 MG Miscellaneous Information (Order Awaiting Action) 1 ea QS N/A 10/01/17 00:00 10/31/17 00:00 Calcium Acetate (Phoslo Cap) 1,334 mg UD PRN PO 09/30/17 22:00 10/30/17 21:59 Insulin Glargine (Lantus Solostar Pen) BSG LANTUS UNITS S... HS SC 10/01/17 21:00 10/31/17 20:59 Insulin Aspart (novoLOG ASPART) SLIDING SCALE G... ACHS SC 10/01/17 06:30 10/31/17 06:29 Miscellaneous (Iv Fluids Completed) 1 ea PRN PRN N/A 10/01/17 01:30 10/01/18 01:29 Diphenhydramine HCl (Benadryl Cap) 25 mg Q8H PRN PO 10/01/17 10:00 10/31/17 09:59
[2017-10-01] MEDS ORDERED: DOCUSATE SODIUM 100 MG CAP PO ONE (11:30)
[2017-10-01] MEDS ORDERED: CALCITRIOL 0.25 MCG CAP PO ONE (11:30)
[2017-10-01] MEDS ORDERED: LACTULOSE SYRUP 30 GM/45 ML UDP PO ONE (11:30)
[2017-10-01] MEDS: LACTULOSE SYRUP 30 GM/45 ML UDP PO SCH ×2 (12:20→20:00)
--- NOTE | 2017-10-01 14:06 | Nephrology Consultation ---
Nephrology Consultation Date of Consultation: Oct 01, 2017. Attending Physician: Dr Lopes Requesting Physician: Dr Calhoun Reason for Consultation: ESRD w/ PD catheter malfunction, abd pain History of Present Illness 67 year old male w/ ESRD on MWF HD, chronic abdominal pain requiring serial admissions and c/b diarrhea/.N/marked wt loss, DM, htn, intraductal papillary mucinous neoplasms, severe DJD transferred from [facility] ER to [facility] for mgt of PD catheter malfunction/malposition. Pt has tunneled dialysis catheter and had routine hemodialysis yesterday. He dialyzes TRSat at [facility] under my care. He was admitted to [facility] in late July w/ an abscess adjacent to his AV fistula and is now using a dialysis catheter for HD access. He had a PD catheter placed by Dr. Carroll on 09/08; he was admitted to [facility] from 09/11-09/14 for falls at home and shortness of breath; he had repeatedly removed bandaging over PD cath prior to admission though exit site and tunnel looked clean. He had hemodialysis to treat diastolic HF/ pulmonary edema. He also however had BL lower quadrant abd pain -- KUB showed PD catheter in LLQ of abdomen. We attempted low volume access of PD catheter to get fluid studies to rule out peritonitis. Concerningly the patient disregarded orders to remain supine for the 2 hrs while 750 mL fluid was dwelling; when the dialysis nurse attempted to aspirate fluid after dwell, only fibrin came out. His abdominal pain worsened and general surgery evaluated the pt. They recommended outpt f/u w Dr Carroll, which had been planned for 3 w/ CT scan before appt. Per routine protocol, dialysis nurses attempt to flush/ change dressing of PD cath on 09/28 and were unsuccessful w/ flush. At the advice of Dr. Carroll, heparinized saline was instilled into catheter to dwell and f/u as above planned w/ surgery. However, the pt had LLQ abd pain starting 09/28 evening and cut his hemodialysis tx short on 09/29 by 50 minutes so he could go to ER per dialysis notes. At the ER his chief complaint was dyspnea which he attributed to LLQ pain which is severe and radiates to groin. He had no fever, hypoxia, or hypotension in ER. He had normal WBC and chemistries. CT of abdomen/pelvis however showed PD catehter not in peritoneum but instead in an 8 x 5 cm fluid pocket posterior to L abdominal rectus muscle. Arrangements were made for transfer to [facility] medicine service for medical mgt of pain, dyspnea and for surgical eval of PD catheter. Surgery has seen the pt and plans laparascopic PD cath repositioning next week. Past Medical/Surgical History -DM -ESRD on HD, s/p PD cath placement 09/08/17 -admission 09/2017 for diastolic HF w/ abd pain 09/11-09/14 -multiple prior admissions for abd pain, intractable n/v/d, w/ wt loss -intraductal papillary mucinous neoplasms, s/p multiple ERCP and surgical oncology / GI evals -severe degenerative joint disease -HTN -HL -celiac disease -multiple sclerosis -chronic pancreatitis Family History Diabetes mellitus MOTHER Heart disease FATHER Hypertension FATHER Social History Smoking Status: Never Smoker Alcohol Use: none Drug Use: none Marital Status: single Housing Status: lives with family Occupation Status: disabled Allergies Coded Allergies: Codeine (Verified Allergy, Severe, THROAT SWELLS, 09/08/17) Penicillins (Verified Allergy, Severe, ANAPHYLAXIS, 09/08/17) Hydromorphone (Verified Allergy, Mild, throat swelling, nausea, 09/08/17) Acetaminophen (Unverified Allergy, Unknown, "SWELL UP", 09/08/17) PER PCP RECORDS Bismuth Subsalicylate (Unverified Allergy, Unknown, HIVES, 09/08/17) PER PCP RECORDS Ciprofloxacin (Unverified Allergy, Unknown, HIVES, 09/08/17) PER PCP RECORDS Magnesium Hydroxide (Unverified Allergy, Unknown, RASH, 08/30/17) PER PCP RECORDS Oxycodone (Unverified Allergy, Unknown, "SWELL UP", 08/30/17) PER PCP RECORDS FIONA Inhibitors (Verified Adverse Reaction, Mild, NAUSEA AND VOMITING, HYPERKALEMIA, 08/30/17) Ibuprofen (Verified Adverse Reaction, Mild, GI UPSET, 08/30/17) Pravastatin (Verified Adverse Reaction, Mild, NAUSEA AND VOMITING, 08/30/17 ) Medications Current Inpatient Medications Medications (Trade) Dose Ordered Sig/Emilia Route Start Time Stop Time Status Last Admin Dose Admin Morphine Sulfate (MoRPHine SULFATE INJ) 2 mg Q2H PRN IV 09/30/17 22:00 10/14/17 21:59 10/01/17 08:15 2 MG Ondansetron HCl (Zofran Inj) 4 mg Q6H PRN IV 09/30/17 22:00 10/30/17 21:59 10/01/17 08:14 4 MG Glucose (Glucose 40% Gel) 15-30 GRAMS 15 GRAMS... UD PRN PO 09/30/17 22:15 10/30/17 22:14 Glucose (Glucose Chew Tab) 4-8 Tablets 4 Tabl... UD PRN PO 09/30/17 22:15 10/30/17 22:14 Dextrose (Dextrose 50% 50ML Syringe) 25-50ML OF 50% DW IV FOR... UD PRN IV 09/30/17 22:15 10/30/17 22:14 Glucagon (Glucagon Inj) 1 mg UD PRN SQ 09/30/17 22:15 10/30/17 22:14 Calcium Acetate (Phoslo Cap) 2,001 mg AC PO 10/01/17 06:30 10/31/17 06:29 Furosemide (Lasix Tab) 80 mg QPM PO 10/01/17 21:00 10/31/17 20:59 Furosemide (Lasix Tab) 160 mg QAM PO 10/01/17 08:00 10/31/17 07:59 10/01/17 08:16 160 MG Hydralazine HCl (Apresoline Tab) 25 mg BID PO 10/01/17 08:00 10/31/17 07:59 10/01/17 08:16 25 MG Nitroglycerin (Nitrostat Tab) 0.4 mg PRN PRN UT 09/30/17 22:00 10/30/17 21:59 Pregabalin (Lyrica Cap) 50 mg BID PO 10/01/17 08:00 10/31/17 07:59 10/01/17 08:14 50 MG Amylase/Lipase/ Protease (Pancreaze (Lipase 4,200U) Cap) 3 cap ACHS PO 10/01/17 06:30 10/31/17 06:29 10/01/17 08:18 3 CAP Nifedipine (Procardia Xl Tab) 90 mg QAM PO 10/01/17 08:00 10/31/17 07:59 10/01/17 08:17 90 MG Miscellaneous Information (Order Awaiting Action) 1 ea QS N/A 10/01/17 00:00 10/31/17 00:00 Calcium Acetate (Phoslo Cap) 1,334 mg UD PRN PO 09/30/17 22:00 10/30/17 21:59 Insulin Glargine (Lantus Solostar Pen) BSG LANTUS UNITS S... HS SC 10/01/17 21:00 10/31/17 20:59 Insulin Aspart (novoLOG ASPART) SLIDING SCALE G... ACHS SC 10/01/17 06:30 10/31/17 06:29 Miscellaneous (Iv Fluids Completed) 1 ea PRN PRN N/A 10/01/17 01:30 10/01/18 01:29 Diphenhydramine HCl (Benadryl Cap) 25 mg Q8H PRN PO 10/01/17 10:00 10/31/17 09:59 Home Meds and Scripts Medications Dose Route/Sig Max Daily Dose Days Date Category Dose Instructions Susannah-Som (B-Complex W/ C & Folic Acid) 1 Tab Tab 1 Tab PO DAILY 09/30/17 Reported Phoslo 667 Mg (Calcium Acetate (Phosphate Bin) 667 Mg Cap 0 PO UD 09/30/17 Reported Take 3 pills with meals. Take 2 pills with snacks. Aubagio (Teriflunomide) 14 Mg Tab 14 Mg PO DAILY 09/30/17 Reported Ondansetron HCl (Ondansetron) 4 Mg Tab 4 Mg PO Q8 PRN 09/30/17 Reported Creon [id number] (Pancrelipase (Lipase-Protease-) 1 Cap Cap 1 Cap PO ACHS 09/30/17 Reported Lyrica (Pregabalin) 50 Mg Cap 50 Mg PO BID 09/30/17 Reported Apresoline (Hydralazine Hcl) 25 Mg Tab 25 Mg PO BID 09/30/17 Reported [Lantus] 6-10 Units SC UD 08/30/17 Reported PT TAKES IN THE EVENING DEPENDING ON RESULTS OF BSG Nifedipine ER (Nifedipine) 90 Mg Tabcr 1 Tab PO QAM 08/30/17 Reported Lasix (Furosemide) 80 Mg Tab 160 Mg PO QAM 01/23/15 Reported Furosemide 80 Mg Tab 80 Mg PO QPM 06/14/14 Reported Zocor (Simvastatin) 10 Mg Tab 10 Mg PO QPM 04/13/12 Reported Nitrostat (Nitroglycerin) 0.4 Mg Sub 0.4 Mg UT PRN 04/13/12 Reported Review of Systems Constitutional: + sweats (chronic night sweats), No fever, No chills Eyes: No worsening of vision ENT: No hearing loss Respiratory: + shortness of breath, No cough Abdomen: + pain, + diarrhea, No nausea, No vomiting Musculoskeletal: No joint pain, No muscle pain Male : + problem reported (no change in chronic voiding habits) Neuro: + weakness, + balance problems (stable chronic), No memory loss Psych: No depression symptoms, No anxiety Heme: No abnormal bleeding/bruising Endo: + fatigue Skin: No rash, No itch Physical Exam Date Time Temp Pulse Resp B/P (MAP) Pulse Ox O2 Delivery O2 Flow Rate FiO2 10/01/17 07:50 36.6 75 14 170/80 (110) 95 Room Air 10/01/17 00:47 36.8 61 20 154/61 (92) 91 Room Air 10/01/17 00:00 Room Air 09/30/17 22:50 36.3 68 16 161/64 (96) 94 Room Air 09/30/17 19:58 Room Air General Appearance: WD/WN, + mild distress (with position change; on RA, oriented x 3), + thin Eyes: EOMI ENT: hearing grossly normal Neck: supple Respiratory/Chest: lungs clear, normal breath sounds, no respiratory distress Cardiovascular: regular rate, rhythm, no edema Abdomen: normal bowel sounds, soft, + guarding, + tenderness (PD cath LLQ) Extremities: non-tender Neurologic/Psych: alert, normal mood/affect, oriented x 3 Skin: normal color, no jaundice, warm/dry, + pallor Diagnostics Last 24 Hours Test 09/30/17 20:32 10/01/17 07:02 10/01/17 08:11 Bedside Glucose 142 mg/dl 190 mg/dl White Blood Count 8.39 K/uL Red Blood Count 3.07 M/uL Hemoglobin 10.0 g/dL Hematocrit 30.7 % Mean Corpuscular Volume 100.0 fL Mean Corpuscular Hemoglobin 32.6 pg Mean Corpuscular Hemoglobin Concent 32.6 g/dl RDW Standard Deviation 50.1 fL RDW Coefficient of Variation 13.7 % Platelet Count 198 K/uL Mean Platelet Volume 8.7 fL Sodium Level 136 mmol/L Potassium Level 5.7 mmol/L Chloride Level 105 mmol/L Carbon Dioxide Level 26 mmol/L Anion Gap 6.0 mmol/L Blood Urea Nitrogen 29 mg/dl Creatinine 2.97 mg/dl Est Creatinine Clear Calc Drug Dose 23.1 ml/min Estimated GFR () 24.3 Estimated GFR (Non- 20.9 BUN/Creatinine Ratio 9.7 Random Glucose 162 mg/dl Calcium Level 8.3 mg/dl Procalcitonin 0.40 ng/ml Diagnostic Radiology: CT abd/pelvis today -malpositioned PD cath in 7 x 5 cm fluid collection, possibly w/ hemorrhage in collection -mild interstitial edema -concern for ileus on bowel imaging -IPMNs Assessment & Plan 67 y/o M w/ ESRD on HD via [facility], chronic pancreatitis, multiple admissions for abd pain admitted 10/01 for malpositioned PD catheter which is for laparascopic repositioning on 10/04 or 10/05 ESRD on HD -HD today for 2 hrs d/t hyperkalemia, interstitial edema, no heparin -continue binders -needs renavite qhs Malpositioned PD catheter w/ severe/intractable abdominal pain -surgery following, input appreciated -do not believe he has infection/abscess but defer to surgery on this -CT report questions hemorrhage in fluid collection ->>>defer to primary service to manage abdominal pain ->>VERY important in PD cath patients to ensure a BM daily > suggest stool softeners, lactulose; preliminary orders in; could add dulcolax and tap water or mineral oil enemas if needed; avoid FLEETS products in esrd -- he is challenging b/c imaging shows constipation despite frequent loose bm Anemia of ESRD -routine epo w/ HD Appreciate consult; will follow with you.
[2017-10-01] MEDS: INSULIN GLARGINE SOLOSTAR 100 UNITS/ML 3 ML PEN SC SCH (21:17)
[2017-10-01] MEDS: DOCUSATE SODIUM 100 MG CAP PO SCH (21:22)
[2017-10-02] VITALS (23 sets, daily range): BP systolic 144–192; BP diastolic 55–85; PULSE 61–74; TEMP 36.3–36.8; O2SAT 93–99
[2017-10-02] MEDS: MoRPHine SULFATE 2 MG/ML CARP IV PRN ×4 (02:12→17:55)
[2017-10-02] MEDS ORDERED: LORATADINE 10 MG TAB PO ONE (06:45)
[2017-10-02] MEDS: LACTULOSE SYRUP 30 GM/45 ML UDP PO SCH ×3 (08:00→20:00)
[2017-10-02] MEDS: PANCREAZE (LIPASE 4,200U) CAP PO SCH ×4 (08:10→20:26)
[2017-10-02] MEDS: FUROSEMIDE 80 MG TAB PO SCH ×2 (08:11→20:25)
[2017-10-02] MEDS: NIFEdipine 30 MG CR TAB PO SCH (08:11)
[2017-10-02] MEDS: DOCUSATE SODIUM 100 MG CAP PO SCH ×2 (08:12→20:25)
[2017-10-02] MEDS: CALCIUM ACETATE 667MG GELCAP PO SCH ×4 (08:12→17:49)
[2017-10-02] MEDS: ONDANSETRON INJ 2 MG/ML 2 ML VIAL IV PRN ×2 (08:17→17:55)
[2017-10-02] MEDS: PREGABALIN 50 MG CAP PO SCH ×2 (08:19→20:32)
[2017-10-02] MEDS: INSULIN ASPART 100 UNITS/ML 3 ML PEN SC SCH ×4 (09:00→20:33)
[2017-10-02 09:12] LABS: CALCIUM 8.6 mg/dl (8.5-10.1); CREATININE 2.87 mg/dl (0.60-1.40); POTASSIUM 4.1 mmol/L (3.5-5.1)
[2017-10-02] MEDS ORDERED: MoRPHine SULFATE 2 MG/ML CARP IV PRN (10:00)
[2017-10-02] MEDS ORDERED: ONDANSETRON INJ 2 MG/ML 2 ML VIAL IV PRN (10:00)
[2017-10-02] MEDS ORDERED: NURSING VERBAL MED ORDER ONE (16:45)
--- NOTE | 2017-10-02 16:54 | Nephrology Progress Note ---
Nephrology Progress Note Date of Service: Oct 02, 2017. Subjective Had HD earlier today got 2L removed; OR mid week d/t need for 2 services in OR; abd pain worse today Objective Date Time Temp Pulse Resp B/P (MAP) Pulse Ox O2 Delivery O2 Flow Rate FiO2 10/02/17 16:29 Room Air 10/02/17 15:22 36.5 72 20 151/66 (94) 98 10/02/17 13:11 36.8 67 184/79 (114) 10/02/17 12:30 71 168/67 10/02/17 12:15 65 172/74 10/02/17 12:00 67 167/62 10/02/17 11:45 71 171/65 10/02/17 11:30 61 181/67 10/02/17 11:15 65 185/61 10/02/17 11:00 61 171/64 10/02/17 10:45 67 164/68 10/02/17 10:30 63 154/63 10/02/17 10:30 Room Air 10/02/17 10:15 66 171/57 10/02/17 10:00 67 192/85 10/02/17 09:45 66 164/59 10/02/17 09:30 64 164/71 10/02/17 09:15 66 174/70 10/02/17 09:00 66 172/67 10/02/17 08:45 36.4 67 192/85 (120) 10/02/17 08:07 36.3 71 20 164/60 (94) 99 10/02/17 00:09 73 20 144/55 (84) 97 Room Air 10/02/17 00:00 95 Room Air 10/01/17 17:45 36.6 73 129/61 (83) 10/01/17 17:00 66 134/67 10/01/17 16:45 65 129/61 Physical Exam: General Appearance: WD/WN, + mild distress (with position change; on RA, oriented x 3), + thin, curled up in bed Eyes: EOMI ENT: hearing grossly normal Neck: supple Respiratory/Chest: lungs clear, normal breath sounds, no respiratory distress Cardiovascular: regular rate, rhythm, no edema Abdomen: normal bowel sounds, soft, + guarding/rebound, + tenderness (PD cath LLQ) Extremities: non-tender Neurologic/Psych: alert, normal mood/affect, oriented x 3 Skin: normal color, no jaundice, warm/dry, + pallor Current Inpatient Medications Medications (Trade) Dose Ordered Sig/Emilia Route Start Time Stop Time Status Last Admin Dose Admin Ondansetron HCl (Zofran Inj) 4 mg Q6H PRN IV 09/30/17 22:00 10/30/17 21:59 10/02/17 08:17 4 MG Glucose (Glucose 40% Gel) 15-30 GRAMS 15 GRAMS... UD PRN PO 09/30/17 22:15 10/30/17 22:14 Glucose (Glucose Chew Tab) 4-8 Tablets 4 Tabl... UD PRN PO 09/30/17 22:15 10/30/17 22:14 Dextrose (Dextrose 50% 50ML Syringe) 25-50ML OF 50% DW IV FOR... UD PRN IV 09/30/17 22:15 10/30/17 22:14 Glucagon (Glucagon Inj) 1 mg UD PRN SQ 09/30/17 22:15 10/30/17 22:14 Calcium Acetate (Phoslo Cap) 2,001 mg AC PO 10/01/17 06:30 10/31/17 06:29 Furosemide (Lasix Tab) 80 mg QPM PO 10/01/17 21:00 10/31/17 20:59 10/01/17 21:22 80 MG Furosemide (Lasix Tab) 160 mg QAM PO 10/01/17 08:00 10/31/17 07:59 10/02/17 08:11 160 MG Hydralazine HCl (Apresoline Tab) 25 mg BID PO 10/01/17 08:00 10/31/17 07:59 10/02/17 08:11 25 MG Nitroglycerin (Nitrostat Tab) 0.4 mg PRN PRN UT 09/30/17 22:00 10/30/17 21:59 Pregabalin (Lyrica Cap) 50 mg BID PO 10/01/17 08:00 10/31/17 07:59 10/02/17 08:19 50 MG Amylase/Lipase/ Protease (Pancreaze (Lipase 4,200U) Cap) 3 cap ACHS PO 10/01/17 06:30 10/31/17 06:29 10/02/17 13:13 3 CAP Nifedipine (Procardia Xl Tab) 90 mg QAM PO 10/01/17 08:00 10/31/17 07:59 10/02/17 08:11 90 MG Miscellaneous Information (Order Awaiting Action) 1 ea QS N/A 10/01/17 00:00 10/31/17 00:00 Calcium Acetate (Phoslo Cap) 1,334 mg UD PRN PO 09/30/17 22:00 10/30/17 21:59 Insulin Glargine (Lantus Solostar Pen) BSG LANTUS UNITS S... HS SC 10/01/17 21:00 10/31/17 20:59 10/01/17 21:17 10 UNITS Insulin Aspart (novoLOG ASPART) SLIDING SCALE G... ACHS SC 10/01/17 06:30 10/31/17 06:29 10/01/17 21:18 1 UNITS Miscellaneous (Iv Fluids Completed) 1 ea PRN PRN N/A 10/01/17 01:30 10/01/18 01:29 Diphenhydramine HCl (Benadryl Cap) 25 mg Q8H PRN PO 10/01/17 10:00 10/31/17 09:59 10/02/17 08:15 25 MG Docusate Sodium (coLACE CAP) 100 mg BID PO 10/01/17 20:00 10/31/17 19:59 10/02/17 08:12 100 MG Lactulose (Chronulac Syrup) 30 gm TID PO 10/01/17 14:00 10/31/17 13:59 Morphine Sulfate (MoRPHine SULFATE INJ) 2 mg Q3HWA PRN IV 10/02/17 10:00 10/14/17 21:59 10/02/17 13:13 2 MG Ondansetron HCl (Zofran Inj) 4 mg Q6H PRN IV 10/02/17 10:00 11/01/17 09:59 Miscellaneous Information (Nursing Verbal Med Order) 1 ea ONE ONCE N/A 10/02/17 16:45 10/02/17 16:46 UNV Last 24 Hours Test 10/01/17 18:37 10/01/17 20:22 10/02/17 05:36 10/02/17 08:27 Bedside Glucose 145 mg/dl 237 mg/dl Hepatitis B Surface Antigen NEG Hepatitis B Surface Antibody POS Sodium Level 135 mmol/L Potassium Level 4.1 mmol/L Chloride Level 97 mmol/L Carbon Dioxide Level 30 mmol/L Anion Gap 7.0 mmol/L Blood Urea Nitrogen 29 mg/dl Creatinine 2.87 mg/dl Est Creatinine Clear Calc Drug Dose 23.2 ml/min Estimated GFR () 25.3 Estimated GFR (Non- 21.8 BUN/Creatinine Ratio 10.2 Random Glucose 63 mg/dl Calcium Level 8.6 mg/dl Test 10/02/17 09:55 10/02/17 13:13 Bedside Glucose 132 mg/dl 92 mg/dl Assessment & Plan 67 y/o M w/ ESRD on HD via [facility], chronic pancreatitis, multiple admissions for abd pain admitted 10/01 for PD catheter malpositioned in fluid pocket which is for laparascopic repositioning likely about 3.7 ESRD on HD -HD today for 3.5 hrs per routein but w/ no heparin; next HD on 10/04 or 10/05 or both depending on clinical status -continue binders -ordered renavite qhs Malpositioned PD catheter w/ severe/intractable abdominal pain -surgery following, input appreciated -do not believe he has infection/abscess but defer to surgery on this -CT report questions hemorrhage in fluid collection ->>>defer to primary service to manage abdominal pain ->>VERY important in PD cath patients to ensure a BM daily > suggest stool softeners, lactulose; preliminary orders in; could add dulcolax and tap water or mineral oil enemas if needed; avoid FLEETS products in esrd -- he is challenging b/c imaging shows constipation despite frequent loose bm Anemia of ESRD -routine epo w/ HD Appreciate consult; will follow with you. Care coordinated w/ Dr. Lopes
--- NOTE | 2017-10-02 17:19 | Progress Note ---
Medicine Progress Note Date & Time of Visit: Oct 02, 2017 at 17:14. Subjective Pt was seen and examined Sitting at the edge of the bed with no distress Pt said that abdominal pain improved He said that he is tolerated clear liquid diet and would like his diet advanced Denies any chest pain, palpitation, dizziness and fever Objective Last 8 Hrs Date Time Temp Pulse Resp B/P (MAP) Pulse Ox O2 Delivery O2 Flow Rate FiO2 10/02/17 16:29 Room Air 10/02/17 15:22 36.5 72 20 151/66 (94) 98 10/02/17 13:11 36.8 67 184/79 (114) 10/02/17 12:30 71 168/67 10/02/17 12:15 65 172/74 10/02/17 12:00 67 167/62 10/02/17 11:45 71 171/65 10/02/17 11:30 61 181/67 10/02/17 11:15 65 185/61 10/02/17 11:00 61 171/64 10/02/17 10:45 67 164/68 10/02/17 10:30 63 154/63 10/02/17 10:30 Room Air 10/02/17 10:15 66 171/57 10/02/17 10:00 67 192/85 10/02/17 09:45 66 164/59 10/02/17 09:30 64 164/71 10/02/17 09:15 66 174/70 Physical Exam: General- No acute distress Head- atraumatic Eyes- PERRL, EOMI ENT- oropharynx clear Neck- supple, no JVD Lungs- clear to auscultation Heart- regular rhythm; no murmur Abdomen- +tenderness below the peritoneal cath, no drainage, no erythema, no warmness Extremities- no pretibial edema, no calf tenderness Neuro- alert, oriented x 3; PERRL, EOMI Skin- warm & dry Laboratory Results: Last 24 Hours Test 10/01/17 18:37 10/01/17 20:22 10/02/17 05:36 10/02/17 08:27 Bedside Glucose 145 mg/dl 237 mg/dl Hepatitis B Surface Antigen NEG Hepatitis B Surface Antibody POS Sodium Level 135 mmol/L Potassium Level 4.1 mmol/L Chloride Level 97 mmol/L Carbon Dioxide Level 30 mmol/L Anion Gap 7.0 mmol/L Blood Urea Nitrogen 29 mg/dl Creatinine 2.87 mg/dl Est Creatinine Clear Calc Drug Dose 23.2 ml/min Estimated GFR () 25.3 Estimated GFR (Non- 21.8 BUN/Creatinine Ratio 10.2 Random Glucose 63 mg/dl Calcium Level 8.6 mg/dl Test 10/02/17 09:55 10/02/17 13:13 10/02/17 16:58 Bedside Glucose 132 mg/dl 92 mg/dl 170 mg/dl Assessment & Plan LEFT SIDED ABDOMINAL PAIN Due to malfunction peritoneal dialysis cath CT abd showed malpositioned left lower quadrant peritoneal dialysis catheter. Catheter coiled within an extraperitoneal fluid collection that measures 7 x 5.6 x 4.4 cm No signs of infection No leukocytosis,procalcitonin normal and afebrile vascular surgery on board Plan to reposition the peritoneal dialysis cath on Wednesday If pain improves, pt can discharge and will get the procedure done on Wed If pain continue will continue monitor pt. Starting on clear liquid diet Continue pain control 3/ Pain improved tolerated clear liquid diet Will advance diet Morphine decreased to q4hr continue monitor HYPERKALEMIA Due to CKD stage 5 K 4.1 today had 2 hours HD yesterday he also had a complete HD today case discussed with nephro stable CKD V Had HD done today Nephrology on board No sign of fluid overload INTRADUCTAL PAPILLARY MUCINOUS NEOPLASM CT Abd showed . 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 Delacruz for the last 3yrs as per patient Stable HYPERTENSION BP elevated Possible related to pain Continue nifedipine and hydralazine Will add hydralazine IV prn PULMONARY ATELECTASIS Incentive spirometry. Stable CELIAC DISEASE Gluten-free diet. 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 Well-controlled. Hgb A1C 6.4 on 08/09/17. Continue Lantus. DIABETIC NEUROPATHY Continue pregabalin. MULTIPLE SCLEROSIS Continue teriflunomide. PT / OT VTE PROPHYLAXIS SCD's. On heparin subd RESUSCITATION STATUS FULL CODE DISPOSITION Family Medicine follow-up with Dr. Machado. Nephrology follow-up with Dr. Wetzel. Consultants: Vascular Nephro Current Inpatient Medications: Current Inpatient Medications Medications (Trade) Dose Ordered Sig/Emilia Route Start Time Stop Time Status Last Admin Dose Admin Ondansetron HCl (Zofran Inj) 4 mg Q6H PRN IV 09/30/17 22:00 10/30/17 21:59 10/02/17 08:17 4 MG Glucose (Glucose 40% Gel) 15-30 GRAMS 15 GRAMS... UD PRN PO 09/30/17 22:15 10/30/17 22:14 Glucose (Glucose Chew Tab) 4-8 Tablets 4 Tabl... UD PRN PO 09/30/17 22:15 10/30/17 22:14 Dextrose (Dextrose 50% 50ML Syringe) 25-50ML OF 50% DW IV FOR... UD PRN IV 09/30/17 22:15 10/30/17 22:14 Glucagon (Glucagon Inj) 1 mg UD PRN SQ 09/30/17 22:15 10/30/17 22:14 Calcium Acetate (Phoslo Cap) 2,001 mg AC PO 10/01/17 06:30 10/31/17 06:29 Furosemide (Lasix Tab) 80 mg QPM PO 10/01/17 21:00 10/31/17 20:59 10/01/17 21:22 80 MG Furosemide (Lasix Tab) 160 mg QAM PO 10/01/17 08:00 10/31/17 07:59 10/02/17 08:11 160 MG Hydralazine HCl (Apresoline Tab) 25 mg BID PO 10/01/17 08:00 10/31/17 07:59 10/02/17 08:11 25 MG Nitroglycerin (Nitrostat Tab) 0.4 mg PRN PRN UT 09/30/17 22:00 10/30/17 21:59 Pregabalin (Lyrica Cap) 50 mg BID PO 10/01/17 08:00 10/31/17 07:59 10/02/17 08:19 50 MG Amylase/Lipase/ Protease (Pancreaze (Lipase 4,200U) Cap) 3 cap ACHS PO 10/01/17 06:30 10/31/17 06:29 10/02/17 13:13 3 CAP Nifedipine (Procardia Xl Tab) 90 mg QAM PO 10/01/17 08:00 10/31/17 07:59 10/02/17 08:11 90 MG Miscellaneous Information (Order Awaiting Action) 1 ea QS N/A 10/01/17 00:00 10/31/17 00:00 Calcium Acetate (Phoslo Cap) 1,334 mg UD PRN PO 09/30/17 22:00 10/30/17 21:59 Insulin Glargine (Lantus Solostar Pen) BSG LANTUS UNITS S... HS SC 10/01/17 21:00 10/31/17 20:59 10/01/17 21:17 10 UNITS Insulin Aspart (novoLOG ASPART) SLIDING SCALE G... ACHS SC 10/01/17 06:30 10/31/17 06:29 10/01/17 21:18 1 UNITS Miscellaneous (Iv Fluids Completed) 1 ea PRN PRN N/A 10/01/17 01:30 10/01/18 01:29 Diphenhydramine HCl (Benadryl Cap) 25 mg Q8H PRN PO 10/01/17 10:00 10/31/17 09:59 10/02/17 08:15 25 MG Docusate Sodium (coLACE CAP) 100 mg BID PO 10/01/17 20:00 10/31/17 19:59 10/02/17 08:12 100 MG Lactulose (Chronulac Syrup) 30 gm TID PO 10/01/17 14:00 10/31/17 13:59 Ondansetron HCl (Zofran Inj) 4 mg Q6H PRN IV 10/02/17 10:00 11/01/17 09:59 Vitamin B Complex/ Vit C/Folic Acid (Nephrocaps) 1 cap HS PO 10/02/17 21:00 11/01/17 20:59 Morphine Sulfate (MoRPHine SULFATE INJ) 2 mg Q4H PRN IV 10/02/17 17:00 10/16/17 16:59
[2017-10-02 18:29] LABS: INR 1.1 (0.9-1.1); PTT PATIENT 29.6 SECONDS (21.0-31.0)
[2017-10-02] MEDS: NEPHROCAPS PO SCH (20:29)
[2017-10-02] MEDS: INSULIN GLARGINE SOLOSTAR 100 UNITS/ML 3 ML PEN SC SCH (20:35)
[2017-10-02] MEDS: HEPARIN SOD 5000 UNIT/0.5 ML CARP SQ SCH (20:36)
[2017-10-03] MEDS: MoRPHine SULFATE 2 MG/ML CARP IV PRN ×5 (00:17→20:02)
[2017-10-03 01:07] VITALS: O2SAT 95
[2017-10-03 06:01] LABS: HEMATOCRIT 27.7 % (42-52); HEMOGLOBIN 9.3 g/dL (14.0-18.0); MEAN CELL VOLUME 96.2 fL (80-100); MEAN CORPUSCULAR HEMOGLOBIN 32.3 pg (25-34); MEAN CORPUSCULAR HGB CONC 33.6 g/dl (32-36); MEAN PLATELET VOLUME 8.1 fL (7.4-10.4); PLATELET COUNT 151 K/uL (130-400); RED CELL DISTRIBUTION WIDTH CV 13.3 % (11.5-14.5); RED CELL DISTRIBUTION WIDTH SD 46.9 fL (36.4-46.3); WHITE BLOOD COUNT 5.58 K/uL (4.8-10.8)
[2017-10-03] MEDS: INSULIN ASPART 100 UNITS/ML 3 ML PEN SC SCH ×4 (06:30→20:54)
[2017-10-03 06:35] LABS: CALCIUM 8.3 mg/dl (8.5-10.1); CREATININE 2.82 mg/dl (0.60-1.40); POTASSIUM 4.5 mmol/L (3.5-5.1)
[2017-10-03 07:39] VITALS: BP 154/60; PULSE 69; TEMP 36.6; O2SAT 96
[2017-10-03] MEDS: LACTULOSE SYRUP 30 GM/45 ML UDP PO SCH ×3 (08:00→20:48)
[2017-10-03 08:01] VITALS: O2SAT 96
[2017-10-03] MEDS: DOCUSATE SODIUM 100 MG CAP PO SCH ×2 (08:04→20:55)
[2017-10-03] MEDS: PANCREAZE (LIPASE 4,200U) CAP PO SCH ×4 (08:04→20:50)
[2017-10-03] MEDS: CALCIUM ACETATE 667MG GELCAP PO SCH ×3 (08:04→17:25)
[2017-10-03] MEDS: FUROSEMIDE 80 MG TAB PO SCH ×2 (08:05→20:52)
[2017-10-03] MEDS: NIFEdipine 30 MG CR TAB PO SCH (08:05)
[2017-10-03] MEDS: PREGABALIN 50 MG CAP PO SCH ×2 (08:08→20:49)
[2017-10-03] MEDS: HEPARIN SOD 5000 UNIT/0.5 ML CARP SQ SCH ×2 (09:00→20:49)
[2017-10-03 15:26] VITALS: BP 136/59; PULSE 66; TEMP 36.5; O2SAT 95
[2017-10-03 16:00] VITALS: O2SAT 95
--- NOTE | 2017-10-03 16:01 | Progress Note ---
Medicine Progress Note Date & Time of Visit: Oct 03, 2017 at 15:55. Subjective Pt was seen and examined Lying in bed with no distress Pt said that he continues to have pain He said that the pain seems to radiate on his right side today He said that tolerated his diet Denies any chest pain, palpitation and SOB Objective Last 8 Hrs Date Time Temp Pulse Resp B/P (MAP) Pulse Ox O2 Delivery O2 Flow Rate FiO2 10/03/17 15:26 36.5 66 20 136/59 (84) 95 10/03/17 08:01 96 Room Air Physical Exam: General- No acute distress Head- atraumatic Eyes- PERRL, EOMI ENT- oropharynx clear Neck- supple, no JVD Lungs- clear to auscultation Heart- regular rhythm; no murmur Abdomen- +tenderness below the peritoneal cath, no drainage, no erythema, no warmness Extremities- no pretibial edema, no calf tenderness Neuro- alert, oriented x 3; PERRL, EOMI Skin- warm & dry Laboratory Results: Last 24 Hours Test 10/02/17 16:58 10/02/17 18:00 10/02/17 20:33 10/03/17 05:49 Bedside Glucose 170 mg/dl 109 mg/dl Prothrombin Time 11.2 SECONDS Prothromb Time International Ratio 1.1 Activated Partial Thromboplast Time 29.6 SECONDS Partial Thromboplastin Ratio 1.1 White Blood Count 5.58 K/uL Red Blood Count 2.88 M/uL Hemoglobin 9.3 g/dL Hematocrit 27.7 % Mean Corpuscular Volume 96.2 fL Mean Corpuscular Hemoglobin 32.3 pg Mean Corpuscular Hemoglobin Concent 33.6 g/dl RDW Standard Deviation 46.9 fL RDW Coefficient of Variation 13.3 % Platelet Count 151 K/uL Mean Platelet Volume 8.1 fL Sodium Level 130 mmol/L Potassium Level 4.5 mmol/L Chloride Level 96 mmol/L Carbon Dioxide Level 27 mmol/L Anion Gap 7.0 mmol/L Blood Urea Nitrogen 28 mg/dl Creatinine 2.82 mg/dl Est Creatinine Clear Calc Drug Dose 23.3 ml/min Estimated GFR () 25.8 Estimated GFR (Non- 22.3 BUN/Creatinine Ratio 10.0 Random Glucose 170 mg/dl Calcium Level 8.3 mg/dl Test 10/03/17 08:02 10/03/17 11:50 Bedside Glucose 164 mg/dl 167 mg/dl Assessment & Plan LEFT SIDED ABDOMINAL PAIN Due to malfunction peritoneal dialysis cath CT abd showed malpositioned left lower quadrant peritoneal dialysis catheter. Catheter coiled within an extraperitoneal fluid collection that measures 7 x 5.6 x 4.4 cm No signs of infection No leukocytosis,procalcitonin normal and afebrile vascular surgery on board Plan to reposition the peritoneal dialysis cath on Wednesday If pain improves, pt can discharge and will get the procedure done on Wed If pain continue will continue monitor pt. Starting on clear liquid diet Continue pain control 10/03 Continue to have pain tolerated regular diet On Morphine IV 2mg q4h Pt said that he cannot tolerate any oral narcotic due to GI discomfort Plan to reposition the peritoneal dialysis cath on Wednesday continue monitor HYPERKALEMIA Due to CKD stage 5 completed HD yesterday case discussed with nephro stable CKD V Had HD done today Nephrology on board No sign of fluid overload INTRADUCTAL PAPILLARY MUCINOUS NEOPLASM CT Abd showed . 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 Delacruz for the last 3yrs as per patient Stable HYPERTENSION BP Stable Possible related to pain Continue nifedipine, furosemide and hydralazine Will add hydralazine IV prn PULMONARY ATELECTASIS Incentive spirometry. Stable CELIAC DISEASE Gluten-free diet. 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 Well-controlled. Hgb A1C 6.4 on 08/09/17. Continue Lantus. DIABETIC NEUROPATHY Continue pregabalin. MULTIPLE SCLEROSIS Continue teriflunomide. PT / OT VTE PROPHYLAXIS SCD's. On heparin subd RESUSCITATION STATUS FULL CODE DISPOSITION Family Medicine follow-up with Dr. Machado. Nephrology follow-up with Dr. Wetzel. Consultants: Vascular Nephro Current Inpatient Medications: Current Inpatient Medications Medications (Trade) Dose Ordered Sig/Emilia Route Start Time Stop Time Status Last Admin Dose Admin Ondansetron HCl (Zofran Inj) 4 mg Q6H PRN IV 09/30/17 22:00 10/30/17 21:59 10/02/17 17:55 4 MG Glucose (Glucose 40% Gel) 15-30 GRAMS 15 GRAMS... UD PRN PO 09/30/17 22:15 10/30/17 22:14 Glucose (Glucose Chew Tab) 4-8 Tablets 4 Tabl... UD PRN PO 09/30/17 22:15 10/30/17 22:14 Dextrose (Dextrose 50% 50ML Syringe) 25-50ML OF 50% DW IV FOR... UD PRN IV 09/30/17 22:15 10/30/17 22:14 Glucagon (Glucagon Inj) 1 mg UD PRN SQ 09/30/17 22:15 10/30/17 22:14 Calcium Acetate (Phoslo Cap) 2,001 mg AC PO 10/01/17 06:30 10/31/17 06:29 10/03/17 11:58 2,001 MG Furosemide (Lasix Tab) 80 mg QPM PO 10/01/17 21:00 10/31/17 20:59 10/02/17 20:25 80 MG Furosemide (Lasix Tab) 160 mg QAM PO 10/01/17 08:00 10/31/17 07:59 10/03/17 08:05 160 MG Hydralazine HCl (Apresoline Tab) 25 mg BID PO 10/01/17 08:00 10/31/17 07:59 10/03/17 08:04 25 MG Nitroglycerin (Nitrostat Tab) 0.4 mg PRN PRN UT 09/30/17 22:00 10/30/17 21:59 Pregabalin (Lyrica Cap) 50 mg BID PO 10/01/17 08:00 10/31/17 07:59 10/03/17 08:08 50 MG Amylase/Lipase/ Protease (Pancreaze (Lipase 4,200U) Cap) 3 cap ACHS PO 10/01/17 06:30 10/31/17 06:29 10/03/17 11:58 3 CAP Nifedipine (Procardia Xl Tab) 90 mg QAM PO 10/01/17 08:00 10/31/17 07:59 10/03/17 08:05 90 MG Miscellaneous Information (Order Awaiting Action) 1 ea QS N/A 10/01/17 00:00 10/31/17 00:00 Calcium Acetate (Phoslo Cap) 1,334 mg UD PRN PO 09/30/17 22:00 10/30/17 21:59 Insulin Glargine (Lantus Solostar Pen) BSG LANTUS UNITS S... HS SC 10/01/17 21:00 10/31/17 20:59 10/02/17 20:35 4 UNITS Insulin Aspart (novoLOG ASPART) SLIDING SCALE G... ACHS SC 10/01/17 06:30 10/31/17 06:29 10/02/17 17:51 3 UNITS Miscellaneous (Iv Fluids Completed) 1 ea PRN PRN N/A 10/01/17 01:30 10/01/18 01:29 Diphenhydramine HCl (Benadryl Cap) 25 mg Q8H PRN PO 10/01/17 10:00 10/31/17 09:59 10/02/17 08:15 25 MG Docusate Sodium (coLACE CAP) 100 mg BID PO 10/01/17 20:00 10/31/17 19:59 10/03/17 08:04 100 MG Lactulose (Chronulac Syrup) 30 gm TID PO 10/01/17 14:00 10/31/17 13:59 Ondansetron HCl (Zofran Inj) 4 mg Q6H PRN IV 10/02/17 10:00 11/01/17 09:59 Vitamin B Complex/ Vit C/Folic Acid (Nephrocaps) 1 cap HS PO 10/02/17 21:00 11/01/17 20:59 10/02/17 20:29 1 CAP Morphine Sulfate (MoRPHine SULFATE INJ) 2 mg Q4H PRN IV 10/02/17 17:00 10/16/17 16:59 10/03/17 14:28 2 MG Heparin Sodium (Porcine) (Heparin Sq 5000 Unit/0.5ml) 5,000 unit Q12 SQ 10/02/17 21:00 11/01/17 20:59
[2017-10-03] MEDS: NEPHROCAPS PO SCH (20:50)
[2017-10-03] MEDS: INSULIN GLARGINE SOLOSTAR 100 UNITS/ML 3 ML PEN SC SCH (20:53)
[2017-10-03 20:58] VITALS: BP 128/63; PULSE 61
[2017-10-04] VITALS (18 sets, daily range): BP systolic 140–183; BP diastolic 59–79; PULSE 63–96; TEMP 36.5–36.9; O2SAT 93–95
[2017-10-04] MEDS: MoRPHine SULFATE 2 MG/ML CARP IV PRN ×5 (00:07→21:24)
[2017-10-04] MEDS: ONDANSETRON INJ 2 MG/ML 2 ML VIAL IV PRN ×2 (05:33→21:43)
[2017-10-04] MEDS ORDERED: EPOETIN ALFA 10,000 UNITS/ML VIAL IV. ONE (06:45)
[2017-10-04] MEDS ORDERED: EPOETIN ALFA INJ 12,000 UNITS in SYRINGE 0 ML IV. SCH (07:00)
[2017-10-04 07:23] LABS: CALCIUM 8.7 mg/dl (8.5-10.1); CREATININE 3.84 mg/dl (0.60-1.40); PHOSPHORUS 5.5 mg/dl (2.5-4.9); POTASSIUM 4.4 mmol/L (3.5-5.1)
[2017-10-04] MEDS: LACTULOSE SYRUP 30 GM/45 ML UDP PO SCH ×3 (08:00→20:00)
[2017-10-04] MEDS: NIFEdipine 30 MG CR TAB PO SCH ×2 (08:00→16:58)
[2017-10-04] MEDS: FUROSEMIDE 80 MG TAB PO SCH ×2 (08:00→20:27)
[2017-10-04] MEDS: HEPARIN SOD 5000 UNIT/0.5 ML CARP SQ SCH ×2 (08:02→21:00)
[2017-10-04] MEDS: PREGABALIN 50 MG CAP PO SCH ×2 (08:06→20:27)
[2017-10-04] MEDS: DOCUSATE SODIUM 100 MG CAP PO SCH ×2 (08:06→20:26)
[2017-10-04] MEDS: CALCIUM ACETATE 667MG GELCAP PO SCH ×3 (08:07→18:01)
[2017-10-04] MEDS: PANCREAZE (LIPASE 4,200U) CAP PO SCH ×4 (08:07→20:27)
[2017-10-04] MEDS: INSULIN ASPART 100 UNITS/ML 3 ML PEN SC SCH ×4 (08:43→21:00)
--- NOTE | 2017-10-04 19:55 | Progress Note ---
Medicine Progress Note Date & Time of Visit: Oct 04, 2017 at 15:48. Subjective Pt was seen and examined Lying in bed with no distress He said that he continue to have abdominal pain He said that pain seems to be the same denies any chest pain, palpitation and SOB Objective Last 8 Hrs Date Time Temp Pulse Resp B/P (MAP) Pulse Ox O2 Delivery O2 Flow Rate FiO2 10/04/17 16:51 36.7 67 18 183/67 (105) 95 Room Air 10/04/17 16:00 95 Room Air 10/04/17 12:00 150/68 (95) 10/04/17 11:56 36.9 96 168/73 (104) Physical Exam: General- No acute distress Head- atraumatic Eyes- PERRL, EOMI ENT- oropharynx clear Neck- supple, no JVD Lungs- clear to auscultation Heart- regular rhythm; no murmur Abdomen- +tenderness below the peritoneal cath, no drainage, no erythema, no warmness Extremities- no pretibial edema, no calf tenderness Neuro- alert, oriented x 3; PERRL, EOMI Skin- warm & dry Laboratory Results: Last 24 Hours Test 10/03/17 20:42 10/04/17 06:07 10/04/17 07:52 10/04/17 12:35 Bedside Glucose 190 mg/dl 127 mg/dl 156 mg/dl Sodium Level 130 mmol/L Potassium Level 4.4 mmol/L Chloride Level 96 mmol/L Carbon Dioxide Level 25 mmol/L Anion Gap 9.0 mmol/L Blood Urea Nitrogen 45 mg/dl Creatinine 3.84 mg/dl Est Creatinine Clear Calc Drug Dose 17.0 ml/min Estimated GFR () 17.8 Estimated GFR (Non- 15.3 BUN/Creatinine Ratio 11.7 Random Glucose 131 mg/dl Calcium Level 8.7 mg/dl Phosphorus Level 5.5 mg/dl Magnesium Level 2.5 mg/dl Test 10/04/17 16:45 Bedside Glucose 240 mg/dl Assessment & Plan LEFT SIDED ABDOMINAL PAIN Due to malfunction peritoneal dialysis cath CT abd showed malpositioned left lower quadrant peritoneal dialysis catheter. Catheter coiled within an extraperitoneal fluid collection that measures 7 x 5.6 x 4.4 cm No signs of infection No leukocytosis,procalcitonin normal and afebrile vascular surgery on board Plan to reposition the peritoneal dialysis cath on Wednesday If pain improves, pt can discharge and will get the procedure done on Wed If pain continue will continue monitor pt. Starting on clear liquid diet Continue pain control 10/04 Continue to have pain tolerated regular diet On Morphine IV 2mg q4h Pt said that he cannot tolerate any oral narcotic due to GI discomfort Plan to reposition the peritoneal dialysis cath on Wednesday Will talk to Vascular surgery tomorrow to confirm if he will go to or on wed continue monitor HYPERKALEMIA Due to CKD stage 5 completed HD today case discussed with nephro stable CKD V Had HD done today Nephrology on board No sign of fluid overload INTRADUCTAL PAPILLARY MUCINOUS NEOPLASM CT Abd showed . 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 Delacruz for the last 3yrs as per patient Stable HYPERTENSION BP Stable Possible related to pain Continue nifedipine, furosemide and hydralazine Will add hydralazine IV prn PULMONARY ATELECTASIS Incentive spirometry. Stable CELIAC DISEASE Gluten-free diet. 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 Well-controlled. Hgb A1C 6.4 on 08/09/17. Continue Lantus. DIABETIC NEUROPATHY Continue pregabalin. MULTIPLE SCLEROSIS Continue teriflunomide. PT / OT VTE PROPHYLAXIS SCD's. On heparin subd RESUSCITATION STATUS FULL CODE DISPOSITION Family Medicine follow-up with Dr. Machado. Nephrology follow-up with Dr. Wetzel. Consultants: Vascular Nephro Current Inpatient Medications: Current Inpatient Medications Medications (Trade) Dose Ordered Sig/Emilia Route Start Time Stop Time Status Last Admin Dose Admin Ondansetron HCl (Zofran Inj) 4 mg Q6H PRN IV 09/30/17 22:00 10/30/17 21:59 10/04/17 05:33 4 MG Glucose (Glucose 40% Gel) 15-30 GRAMS 15 GRAMS... UD PRN PO 09/30/17 22:15 10/30/17 22:14 Glucose (Glucose Chew Tab) 4-8 Tablets 4 Tabl... UD PRN PO 09/30/17 22:15 10/30/17 22:14 Dextrose (Dextrose 50% 50ML Syringe) 25-50ML OF 50% DW IV FOR... UD PRN IV 09/30/17 22:15 10/30/17 22:14 Glucagon (Glucagon Inj) 1 mg UD PRN SQ 09/30/17 22:15 10/30/17 22:14 Calcium Acetate (Phoslo Cap) 2,001 mg AC PO 10/01/17 06:30 10/31/17 06:29 10/04/17 18:01 2,001 MG Furosemide (Lasix Tab) 80 mg QPM PO 10/01/17 21:00 10/31/17 20:59 10/03/17 20:52 80 MG Furosemide (Lasix Tab) 160 mg QAM PO 10/01/17 08:00 10/31/17 07:59 10/03/17 08:05 160 MG Hydralazine HCl (Apresoline Tab) 25 mg BID PO 10/01/17 08:00 10/31/17 07:59 10/04/17 16:58 25 MG Nitroglycerin (Nitrostat Tab) 0.4 mg PRN PRN UT 09/30/17 22:00 10/30/17 21:59 Pregabalin (Lyrica Cap) 50 mg BID PO 10/01/17 08:00 10/31/17 07:59 10/04/17 08:06 50 MG Amylase/Lipase/ Protease (Pancreaze (Lipase 4,200U) Cap) 3 cap ACHS PO 10/01/17 06:30 10/31/17 06:29 10/04/17 18:01 3 CAP Nifedipine (Procardia Xl Tab) 90 mg QAM PO 10/01/17 08:00 10/31/17 07:59 10/04/17 16:58 90 MG Miscellaneous Information (Order Awaiting Action) 1 ea QS N/A 10/01/17 00:00 10/31/17 00:00 Calcium Acetate (Phoslo Cap) 1,334 mg UD PRN PO 09/30/17 22:00 10/30/17 21:59 Insulin Glargine (Lantus Solostar Pen) BSG LANTUS UNITS S... HS SC 10/01/17 21:00 10/31/17 20:59 10/03/17 20:53 10 UNITS Insulin Aspart (novoLOG ASPART) SLIDING SCALE G... ACHS SC 10/01/17 06:30 10/31/17 06:29 10/04/17 18:03 4 UNITS Miscellaneous (Iv Fluids Completed) 1 ea PRN PRN N/A 10/01/17 01:30 10/01/18 01:29 Diphenhydramine HCl (Benadryl Cap) 25 mg Q8H PRN PO 10/01/17 10:00 10/31/17 09:59 10/04/17 05:33 25 MG Docusate Sodium (coLACE CAP) 100 mg BID PO 10/01/17 20:00 10/31/17 19:59 10/04/17 08:06 100 MG Lactulose (Chronulac Syrup) 30 gm TID PO 10/01/17 14:00 10/31/17 13:59 Ondansetron HCl (Zofran Inj) 4 mg Q6H PRN IV 10/02/17 10:00 11/01/17 09:59 Vitamin B Complex/ Vit C/Folic Acid (Nephrocaps) 1 cap HS PO 10/02/17 21:00 11/01/17 20:59 10/03/17 20:50 1 CAP Morphine Sulfate (MoRPHine SULFATE INJ) 2 mg Q4H PRN IV 10/02/17 17:00 10/16/17 16:59 10/04/17 17:03 2 MG Heparin Sodium (Porcine) (Heparin Sq 5000 Unit/0.5ml) 5,000 unit Q12 SQ 10/02/17 21:00 11/01/17 20:59
[2017-10-04] MEDS: NEPHROCAPS PO SCH (20:26)
--- NOTE | 2017-10-04 20:29 | Nephrology Progress Note ---
Nephrology Progress Note Date of Service: Oct 04, 2017. Subjective Had HD earlier today got 1.5L removed; OR mid week d/t need for 2 services in OR ; abd pain still very prominent Objective Date Time Temp Pulse Resp B/P (MAP) Pulse Ox O2 Delivery O2 Flow Rate FiO2 10/04/17 16:51 36.7 67 18 183/67 (105) 95 Room Air 10/04/17 16:00 95 Room Air 10/04/17 12:00 150/68 (95) 10/04/17 11:56 36.9 96 168/73 (104) 10/04/17 11:15 65 142/66 10/04/17 11:00 63 144/66 10/04/17 10:45 65 143/66 10/04/17 10:30 66 144/61 10/04/17 10:15 65 158/66 10/04/17 10:00 65 143/68 10/04/17 09:45 67 140/79 10/04/17 09:30 66 167/70 10/04/17 09:26 95 Room Air 10/04/17 09:19 36.5 67 172/70 (104) 10/04/17 08:00 95 Room Air 10/04/17 07:30 36.5 65 14 160/70 (100) 95 Room Air 10/04/17 00:38 36.5 93 18 146/59 (88) 93 Room Air 10/04/17 00:00 95 Room Air 10/03/17 20:58 61 128/63 (84) Physical Exam: General Appearance: WD/WN, + less distress (with position change; on RA, oriented x 3), + thin Eyes: EOMI ENT: hearing grossly normal Neck: supple Respiratory/Chest: lungs clear, normal breath sounds, no respiratory distress Cardiovascular: regular rate, rhythm, no edema Abdomen: normal bowel sounds, soft, + guarding/rebound w/ peritoneal signs, + tenderness (PD cath LLQ) Extremities: non-tender Neurologic/Psych: alert, normal mood/affect, oriented x 3 Skin: normal color, no jaundice, warm/dry, + pallor Current Inpatient Medications Medications (Trade) Dose Ordered Sig/Emilia Route Start Time Stop Time Status Last Admin Dose Admin Ondansetron HCl (Zofran Inj) 4 mg Q6H PRN IV 09/30/17 22:00 10/30/17 21:59 10/04/17 05:33 4 MG Glucose (Glucose 40% Gel) 15-30 GRAMS 15 GRAMS... UD PRN PO 09/30/17 22:15 10/30/17 22:14 Glucose (Glucose Chew Tab) 4-8 Tablets 4 Tabl... UD PRN PO 09/30/17 22:15 10/30/17 22:14 Dextrose (Dextrose 50% 50ML Syringe) 25-50ML OF 50% DW IV FOR... UD PRN IV 09/30/17 22:15 10/30/17 22:14 Glucagon (Glucagon Inj) 1 mg UD PRN SQ 09/30/17 22:15 10/30/17 22:14 Calcium Acetate (Phoslo Cap) 2,001 mg AC PO 10/01/17 06:30 10/31/17 06:29 10/04/17 13:08 2,001 MG Furosemide (Lasix Tab) 80 mg QPM PO 10/01/17 21:00 10/31/17 20:59 10/03/17 20:52 80 MG Furosemide (Lasix Tab) 160 mg QAM PO 10/01/17 08:00 10/31/17 07:59 10/03/17 08:05 160 MG Hydralazine HCl (Apresoline Tab) 25 mg BID PO 10/01/17 08:00 10/31/17 07:59 10/04/17 16:58 25 MG Nitroglycerin (Nitrostat Tab) 0.4 mg PRN PRN UT 09/30/17 22:00 10/30/17 21:59 Pregabalin (Lyrica Cap) 50 mg BID PO 10/01/17 08:00 10/31/17 07:59 10/04/17 08:06 50 MG Amylase/Lipase/ Protease (Pancreaze (Lipase 4,200U) Cap) 3 cap ACHS PO 10/01/17 06:30 10/31/17 06:29 10/04/17 13:08 3 CAP Nifedipine (Procardia Xl Tab) 90 mg QAM PO 10/01/17 08:00 10/31/17 07:59 10/04/17 16:58 90 MG Miscellaneous Information (Order Awaiting Action) 1 ea QS N/A 10/01/17 00:00 10/31/17 00:00 Calcium Acetate (Phoslo Cap) 1,334 mg UD PRN PO 09/30/17 22:00 10/30/17 21:59 Insulin Glargine (Lantus Solostar Pen) BSG LANTUS UNITS S... HS SC 10/01/17 21:00 10/31/17 20:59 10/03/17 20:53 10 UNITS Insulin Aspart (novoLOG ASPART) SLIDING SCALE G... ACHS SC 10/01/17 06:30 10/31/17 06:29 10/04/17 13:04 1 UNITS Miscellaneous (Iv Fluids Completed) 1 ea PRN PRN N/A 10/01/17 01:30 10/01/18 01:29 Diphenhydramine HCl (Benadryl Cap) 25 mg Q8H PRN PO 10/01/17 10:00 10/31/17 09:59 10/04/17 05:33 25 MG Docusate Sodium (coLACE CAP) 100 mg BID PO 10/01/17 20:00 10/31/17 19:59 10/04/17 08:06 100 MG Lactulose (Chronulac Syrup) 30 gm TID PO 10/01/17 14:00 10/31/17 13:59 Ondansetron HCl (Zofran Inj) 4 mg Q6H PRN IV 10/02/17 10:00 11/01/17 09:59 Vitamin B Complex/ Vit C/Folic Acid (Nephrocaps) 1 cap HS PO 10/02/17 21:00 11/01/17 20:59 10/03/17 20:50 1 CAP Morphine Sulfate (MoRPHine SULFATE INJ) 2 mg Q4H PRN IV 10/02/17 17:00 10/16/17 16:59 10/04/17 17:03 2 MG Heparin Sodium (Porcine) (Heparin Sq 5000 Unit/0.5ml) 5,000 unit Q12 SQ 10/02/17 21:00 11/01/17 20:59 Last 24 Hours Test 10/03/17 20:42 10/04/17 06:07 10/04/17 07:52 10/04/17 12:35 Bedside Glucose 190 mg/dl 127 mg/dl 156 mg/dl Sodium Level 130 mmol/L Potassium Level 4.4 mmol/L Chloride Level 96 mmol/L Carbon Dioxide Level 25 mmol/L Anion Gap 9.0 mmol/L Blood Urea Nitrogen 45 mg/dl Creatinine 3.84 mg/dl Est Creatinine Clear Calc Drug Dose 17.0 ml/min Estimated GFR () 17.8 Estimated GFR (Non- 15.3 BUN/Creatinine Ratio 11.7 Random Glucose 131 mg/dl Calcium Level 8.7 mg/dl Phosphorus Level 5.5 mg/dl Magnesium Level 2.5 mg/dl Test 10/04/17 16:45 Bedside Glucose 240 mg/dl Assessment & Plan 67 y/o M w/ ESRD on HD via TDC, chronic pancreatitis, multiple admissions for abd pain admitted 10/01 for PD catheter malpositioned in fluid pocket which is for laparascopic repositioning likely about 3.7 ESRD on HD -HD today for 2 hrs to optimize volume status but w/ no heparin; next HD on 10/05 depending on clinical status -continue binders and renavite qhs Malpositioned PD catheter w/ severe/intractable abdominal pain -surgery following, input appreciated -do not believe he has infection/abscess but defer to surgery on this -CT report questions hemorrhage in fluid collection ->>>defer to primary service to manage abdominal pain -we will change pd cath dressing tomorrow >defer to surgery but not clear that he leaves here w/ pd cath in abd >> may have to wait for inflammation/incisions to heal first; defer of course to surgery ->>VERY important in PD cath patients to ensure a BM daily > he is moving bowels daily Anemia of ESRD -routine epo w/ HD Appreciate consult; will follow with you. Care coordinated w/ Dr. Lopes
[2017-10-04] MEDS: INSULIN GLARGINE SOLOSTAR 100 UNITS/ML 3 ML PEN SC SCH (21:29)
[2017-10-05] VITALS (20 sets, daily range): BP systolic 109–175; BP diastolic 56–74; PULSE 65–80; TEMP 36.4–37.1; O2SAT 90–98
[2017-10-05] MEDS: MoRPHine SULFATE 2 MG/ML CARP IV PRN ×4 (01:40→23:23)
[2017-10-05] MEDS ORDERED: MoRPHine SULFATE 4 MG/ML 1 ML CARP\\VIAL IV ONE (05:26)
[2017-10-05] MEDS ORDERED: PROCHLORPERAZINE INJ 5 MG in SYRINGE 4 ML IV PRN (05:30)
[2017-10-05] MEDS ORDERED: HYDROmorphone INJ 0.5 MG/0.5 ML SYR IV PRN (05:30)
[2017-10-05] MEDS: ONDANSETRON INJ 2 MG/ML 2 ML VIAL IV PRN ×2 (05:40→14:53)
[2017-10-05] MEDS: CALCIUM ACETATE 667MG GELCAP PO SCH ×3 (05:41→17:07)
[2017-10-05] MEDS: PANCREAZE (LIPASE 4,200U) CAP PO SCH ×4 (05:42→20:44)
--- NOTE | 2017-10-05 06:58 | DIAGNOSTIC IMAGING REPORT ---
CT SCAN OF THE ABDOMEN AND PELVIS WITHOUT CONTRAST CLINICAL HISTORY: Worsening left-sided abdominal pain COMPARISON STUDY: 18 TECHNIQUE: CT scan of the abdomen and pelvis was performed from the lung bases to the proximal femurs. Images are reviewed in the axial, sagittal, and coronal planes. IV contrast was not administered for this examination. A dose lowering technique was utilized adhering to the principles of ALARA. CT DOSE: 341.00 mGy.cm FINDINGS: Lower chest: The heart is normal in size and configuration, without pericardial effusion. The lung bases and pleural spaces are clear. Liver: The unenhanced liver is normal in size, contour, and attenuation. There is no intrahepatic biliary ductal dilatation. Gallbladder: Surgically absent Spleen: Normal in size and attenuation. Pancreas: There is a 3.7 cm lobulated cystic mass involving the pancreatic body. Adrenal glands: Unremarkable. Kidneys: No renal, ureteral, or bladder calculi are visualized. Bowel: Evaluation the bowel is limited given the lack of intravenous and oral contrast. There is fecal retention. There are no transition zones indicate bowel obstruction. There are fluid-filled small bowel loops. There is a small bowel feces sign. The findings remain similar and likely represent stasis. Peritoneum: There is a left lower quadrant catheter dialysis catheter which is coiled within a persistent fluid collection. This is located immediately posterior to the rectus and may lie within the rectus sheath. A fluid fluid level is visualized within this collection. This remain similar to the prior study. Vasculature: The abdominal aorta is normal in course and caliber. Adenopathy: None. Pelvic viscera: The bladder, and pelvic viscera are unremarkable. Skeletal structures: There is a grade 1 spondylolisthesis of L5 and S1. Postsurgical changes are present at this level.. IMPRESSION: 1. The left lower quadrant dialysis catheter remains coiled within an extraperitoneal fluid collection. The catheter may lie within the posterior rectus sheath. There is a fluid/fluid level present within the collection. The appearance remains unchanged the prior study 2. Fecal retention. Probable small bowel stasis. No transition zones to indicate bowel obstruction. 3. 3.7 cm lobulated cystic mass of the pancreatic body. This remains unchanged. Electronically signed by: Aniket Layton M.D. 10/05/2017 6:56 AM Dictated Date/Time: 10/05/2017 6:47 AM
[2017-10-05] MEDS: HEPARIN SOD 5000 UNIT/0.5 ML CARP SQ SCH ×2 (07:48→20:46)
[2017-10-05] MEDS: FUROSEMIDE 80 MG TAB PO SCH ×2 (07:49→20:44)
[2017-10-05] MEDS: DOCUSATE SODIUM 100 MG CAP PO SCH ×2 (07:49→20:43)
[2017-10-05] MEDS: PREGABALIN 50 MG CAP PO SCH ×2 (07:51→20:46)
[2017-10-05] MEDS: LACTULOSE SYRUP 30 GM/45 ML UDP PO SCH ×3 (07:56→20:00)
[2017-10-05 07:57] LABS: HEMATOCRIT 29.3 % (42-52); MEAN CELL VOLUME 95.8 fL (80-100); MEAN CORPUSCULAR HEMOGLOBIN 32.7 pg (25-34); MEAN CORPUSCULAR HGB CONC 34.1 g/dl (32-36); MEAN PLATELET VOLUME 8.7 fL (7.4-10.4); PLATELET COUNT 203 K/uL (130-400); RED CELL DISTRIBUTION WIDTH CV 13.2 % (11.5-14.5); RED CELL DISTRIBUTION WIDTH SD 45.8 fL (36.4-46.3); WHITE BLOOD COUNT 5.91 K/uL (4.8-10.8)
[2017-10-05] MEDS ORDERED: EPOETIN ALFA 10,000 UNITS/ML VIAL IV. ONE (08:00)
[2017-10-05 08:35] LABS: CALCIUM 8.9 mg/dl (8.5-10.1); CREATININE 3.64 mg/dl (0.60-1.40); POTASSIUM 4.7 mmol/L (3.5-5.1)
[2017-10-05] MEDS: INSULIN ASPART 100 UNITS/ML 3 ML PEN SC SCH ×4 (09:00→20:35)
--- NOTE | 2017-10-05 09:25 | Progress Note ---
Progress Note Date of Service Oct 05, 2017. Progress Note Pt scheduled for repositioning of CAPD catheter in OR tomorrow by Dr Carroll. Pt seen today by Dr Carroll to discuss procedure, risks, benefits and alternatives. Pt agreeable.
--- NOTE | 2017-10-05 15:25 | Progress Note ---
Internal Med Progress Note Date of Service: Oct 05, 2017. Provider Documentation: SUBJECTIVE: The patient was seen and examined Complains of left sided abdominal pain Nausea and vomited once Has ahd dialysis this morning OBJECTIVE: Vital Signs-as noted below Exam: General-no distress at rest Eyes-normal ENT-normal Neck-supple Lungs-clear to ausucltate bilaterally Heart-Regular,no murmur Abdomen-Mildly distended,Tender left mid quadrant Extremities-NO edema Neuro-AAOx3 Lab data as noted below. ASSESSMENT & PLAN: LEFT SIDED ABDOMINAL PAIN Due to malfunction peritoneal dialysis cath CT abd showed malpositioned left lower quadrant peritoneal dialysis catheter. Catheter coiled within an extraperitoneal fluid collection that measures 7 x 5.6 x 4.4 cm No signs of infection No leukocytosis,procalcitonin normal and afebrile Appreciate Vascular Surgery input Plan to reposition the peritoneal dialysis cath on Wednesday Continue pain control Plan to reposition the peritoneal dialysis cath on Wednesday HYPERKALEMIA Due to CKD stage 5 completed HD today case discussed with nephro stable CKD V Had HD done today -10/05/17 Nephrology on board No sign of fluid overload INTRADUCTAL PAPILLARY MUCINOUS NEOPLASM CT Abd showed . 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 Delacruz for the last 3yrs as per patient Stable HYPERTENSION BP Stable Possible related to pain Continue nifedipine, furosemide and hydralazine Will add hydralazine IV prn PULMONARY ATELECTASIS Incentive spirometry. Stable CELIAC DISEASE Gluten-free diet. 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 Well-controlled. Hgb A1C 6.4 on 08/09/17. Continue Lantus. DIABETIC NEUROPATHY Continue pregabalin. MULTIPLE SCLEROSIS Continue teriflunomide. PT / OT VTE PROPHYLAXIS SCD's. On heparin subd RESUSCITATION STATUS FULL CODE DISPOSITION Family Medicine follow-up with Dr. Machado. Nephrology follow-up with Dr. Wetzel. Consultants: Vascular Nephro Vital Signs: Date Time Temp Pulse Resp B/P (MAP) Pulse Ox O2 Delivery O2 Flow Rate FiO2 10/05/17 15:13 36.6 80 18 175/64 (101) 90 Room Air 10/05/17 15:12 Room Air 10/05/17 13:03 36.6 70 151/68 (95) 10/05/17 12:45 69 140/67 10/05/17 12:30 68 139/66 10/05/17 12:15 69 118/56 10/05/17 12:00 68 139/60 10/05/17 11:45 67 140/66 10/05/17 11:30 68 131/65 10/05/17 11:15 67 145/70 10/05/17 11:00 68 135/57 10/05/17 10:45 67 134/65 10/05/17 10:30 67 139/63 10/05/17 10:15 68 130/72 10/05/17 10:00 69 143/72 10/05/17 09:45 68 142/67 10/05/17 09:30 69 145/64 10/05/17 09:15 36.6 71 155/74 (101) 10/05/17 08:05 Room Air 10/05/17 07:38 36.4 72 17 166/62 (96) 95 10/05/17 00:45 Room Air 10/05/17 00:03 36.8 75 18 163/67 (99) 94 Room Air 10/04/17 20:15 Room Air 10/04/17 16:51 36.7 67 18 183/67 (105) 95 Room Air 10/04/17 16:00 95 Room Air Lab Results: Results Past 24 Hours Test 10/04/17 16:45 10/04/17 20:39 10/05/17 07:39 10/05/17 07:45 Range/Units Bedside Glucose 240 151 181 70-99 mg/dl White Blood Count 5.91 4.8-10.8 K/uL Red Blood Count 3.06 4.7-6.1 M/uL Hemoglobin 10.0 14.0-18.0 g/dL Hematocrit 29.3 42-52 % Mean Corpuscular Volume 95.8 80-100 fL Mean Corpuscular Hemoglobin 32.7 25-34 pg Mean Corpuscular Hemoglobin Concent 34.1 32-36 g/dl RDW Standard Deviation 45.8 36.4-46.3 fL RDW Coefficient of Variation 13.2 11.5-14.5 % Platelet Count 203 130-400 K/uL Mean Platelet Volume 8.7 7.4-10.4 fL Sodium Level 130 136-145 mmol/L Potassium Level 4.7 3.5-5.1 mmol/L Chloride Level 97 98-107 mmol/L Carbon Dioxide Level 26 21-32 mmol/L Anion Gap 7.0 3-11 mmol/L Blood Urea Nitrogen 37 7-18 mg/dl Creatinine 3.64 0.60-1.40 mg/dl Est Creatinine Clear Calc Drug Dose 17.7 ml/min Estimated GFR () 19.0 Estimated GFR (Non- 16.4 BUN/Creatinine Ratio 10.0 10-20 Random Glucose 181 70-99 mg/dl Calcium Level 8.9 8.5-10.1 mg/dl Iron Level 65 35-175 mcg/dl Total Iron Binding Capacity 229 250-450 mcg/dl Transferrin 198 200-360 mg/dl Transferrin % Saturation 24 20-50 % Test 10/05/17 14:10 Range/Units Bedside Glucose 119 70-99 mg/dl
--- NOTE | 2017-10-05 18:42 | Nephrology Progress Note ---
Nephrology Progress Note Date of Service: Oct 05, 2017. Subjective Had HD earlier today got 1.8L removed; OR tomorrow to reposition PD cath; abd pain still very prominent though less Objective Date Time Temp Pulse Resp B/P (MAP) Pulse Ox O2 Delivery O2 Flow Rate FiO2 10/05/17 15:13 36.6 80 18 175/64 (101) 90 Room Air 10/05/17 15:12 Room Air 10/05/17 13:03 36.6 70 151/68 (95) 10/05/17 12:45 69 140/67 10/05/17 12:30 68 139/66 10/05/17 12:15 69 118/56 10/05/17 12:00 68 139/60 10/05/17 11:45 67 140/66 10/05/17 11:30 68 131/65 10/05/17 11:15 67 145/70 10/05/17 11:00 68 135/57 10/05/17 10:45 67 134/65 10/05/17 10:30 67 139/63 10/05/17 10:15 68 130/72 10/05/17 10:00 69 143/72 10/05/17 09:45 68 142/67 10/05/17 09:30 69 145/64 10/05/17 09:15 36.6 71 155/74 (101) 10/05/17 08:05 Room Air 10/05/17 07:38 36.4 72 17 166/62 (96) 95 10/05/17 00:45 Room Air 10/05/17 00:03 36.8 75 18 163/67 (99) 94 Room Air 10/04/17 20:15 Room Air Physical Exam: General Appearance: WD/WN, + less distress (with position change; on RA, oriented x 3), + thin Eyes: EOMI ENT: hearing grossly normal Neck: supple Respiratory/Chest: lungs clear, normal breath sounds, no respiratory distress Cardiovascular: regular rate, rhythm, no edema Abdomen: normal bowel sounds, soft, + guarding/rebound w/ peritoneal signs, + tenderness (PD cath LLQ) Extremities: non-tender Neurologic/Psych: alert, normal mood/affect, oriented x 3 Skin: normal color, no jaundice, warm/dry, + pallor Current Inpatient Medications Medications (Trade) Dose Ordered Sig/Emilia Route Start Time Stop Time Status Last Admin Dose Admin Ondansetron HCl (Zofran Inj) 4 mg Q6H PRN IV 09/30/17 22:00 10/30/17 21:59 10/05/17 14:53 4 MG Glucose (Glucose 40% Gel) 15-30 GRAMS 15 GRAMS... UD PRN PO 09/30/17 22:15 10/30/17 22:14 Glucose (Glucose Chew Tab) 4-8 Tablets 4 Tabl... UD PRN PO 09/30/17 22:15 10/30/17 22:14 Dextrose (Dextrose 50% 50ML Syringe) 25-50ML OF 50% DW IV FOR... UD PRN IV 09/30/17 22:15 10/30/17 22:14 Glucagon (Glucagon Inj) 1 mg UD PRN SQ 09/30/17 22:15 10/30/17 22:14 Calcium Acetate (Phoslo Cap) 2,001 mg AC PO 10/01/17 06:30 10/31/17 06:29 10/05/17 17:07 2,001 MG Furosemide (Lasix Tab) 80 mg QPM PO 10/01/17 21:00 10/31/17 20:59 10/04/17 20:27 80 MG Furosemide (Lasix Tab) 160 mg QAM PO 10/01/17 08:00 10/31/17 07:59 10/05/17 07:49 160 MG Hydralazine HCl (Apresoline Tab) 25 mg BID PO 10/01/17 08:00 10/31/17 07:59 10/05/17 07:49 25 MG Nitroglycerin (Nitrostat Tab) 0.4 mg PRN PRN UT 09/30/17 22:00 10/30/17 21:59 Pregabalin (Lyrica Cap) 50 mg BID PO 10/01/17 08:00 10/31/17 07:59 10/05/17 07:51 50 MG Amylase/Lipase/ Protease (Pancreaze (Lipase 4,200U) Cap) 3 cap ACHS PO 10/01/17 06:30 10/31/17 06:29 10/05/17 17:07 3 CAP Nifedipine (Procardia Xl Tab) 90 mg QAM PO 10/01/17 08:00 10/31/17 07:59 10/04/17 16:58 90 MG Miscellaneous Information (Order Awaiting Action) 1 ea QS N/A 10/01/17 00:00 10/31/17 00:00 Calcium Acetate (Phoslo Cap) 1,334 mg UD PRN PO 09/30/17 22:00 10/30/17 21:59 Insulin Glargine (Lantus Solostar Pen) BSG LANTUS UNITS S... HS SC 10/01/17 21:00 10/31/17 20:59 10/04/17 21:29 8 UNITS Insulin Aspart (novoLOG ASPART) SLIDING SCALE G... ACHS SC 10/01/17 06:30 10/31/17 06:29 10/05/17 09:00 3 UNITS Miscellaneous (Iv Fluids Completed) 1 ea PRN PRN N/A 10/01/17 01:30 10/01/18 01:29 Diphenhydramine HCl (Benadryl Cap) 25 mg Q8H PRN PO 10/01/17 10:00 10/31/17 09:59 10/05/17 14:58 25 MG Docusate Sodium (coLACE CAP) 100 mg BID PO 10/01/17 20:00 10/31/17 19:59 10/05/17 07:49 100 MG Lactulose (Chronulac Syrup) 30 gm TID PO 10/01/17 14:00 10/31/17 13:59 10/05/17 13:33 30 GM Ondansetron HCl (Zofran Inj) 4 mg Q6H PRN IV 10/02/17 10:00 11/01/17 09:59 Vitamin B Complex/ Vit C/Folic Acid (Nephrocaps) 1 cap HS PO 10/02/17 21:00 11/01/17 20:59 10/04/17 20:26 1 CAP Heparin Sodium (Porcine) (Heparin Sq 5000 Unit/0.5ml) 5,000 unit Q12 SQ 10/02/17 21:00 11/01/17 20:59 Morphine Sulfate (MoRPHine SULFATE INJ) 2 mg Q2H PRN IV 10/05/17 05:30 10/16/17 16:59 10/05/17 14:53 2 MG Prochlorperazine Edisylate 5 mg/ Syringe 5 ml @ 5 mls/min Q6H PRN IV 10/05/17 05:30 11/04/17 05:29 Clindamycin Phosphate 54 ml @ 100 mls/hr PREOP IV 10/06/17 06:00 10/06/17 18:00 Last 24 Hours Test 10/04/17 20:39 10/05/17 07:39 10/05/17 07:45 10/05/17 14:10 Bedside Glucose 151 mg/dl 181 mg/dl 119 mg/dl White Blood Count 5.91 K/uL Red Blood Count 3.06 M/uL Hemoglobin 10.0 g/dL Hematocrit 29.3 % Mean Corpuscular Volume 95.8 fL Mean Corpuscular Hemoglobin 32.7 pg Mean Corpuscular Hemoglobin Concent 34.1 g/dl RDW Standard Deviation 45.8 fL RDW Coefficient of Variation 13.2 % Platelet Count 203 K/uL Mean Platelet Volume 8.7 fL Sodium Level 130 mmol/L Potassium Level 4.7 mmol/L Chloride Level 97 mmol/L Carbon Dioxide Level 26 mmol/L Anion Gap 7.0 mmol/L Blood Urea Nitrogen 37 mg/dl Creatinine 3.64 mg/dl Est Creatinine Clear Calc Drug Dose 17.7 ml/min Estimated GFR () 19.0 Estimated GFR (Non- 16.4 BUN/Creatinine Ratio 10.0 Random Glucose 181 mg/dl Calcium Level 8.9 mg/dl Iron Level 65 mcg/dl Total Iron Binding Capacity 229 mcg/dl Transferrin 198 mg/dl Transferrin % Saturation 24 % Test 10/05/17 16:58 Bedside Glucose 197 mg/dl Assessment & Plan 67 y/o M w/ ESRD on HD via TDC, chronic pancreatitis, multiple admissions for abd pain admitted 10/01 for PD catheter malpositioned in fluid pocket which is for laparascopic repositioning likely about 3.7 ESRD on HD -HD today was for 3.5 hrs to optimize volume status but w/ no heparin; next HD on 10/07 depending on clinical status as inpt or outpt -continue binders and renavite qhs Malpositioned PD catheter w/ severe/intractable abdominal pain -surgery following, input appreciated -do not believe he has infection/abscess but defer to surgery on this -CT report questions hemorrhage in fluid collection ->>>defer to primary service to manage abdominal pain >defer to surgery but not clear that he leaves here w/ pd cath in abd >> may have to wait for inflammation/incisions to heal first; defer of course to surgery ->>VERY important in PD cath patients to ensure a BM daily > he is moving bowels daily Anemia of ESRD -routine epo w/ HD Appreciate consult; will follow with you. Care coordinated w/ Dr. Arteaga
[2017-10-05] MEDS: INSULIN GLARGINE SOLOSTAR 100 UNITS/ML 3 ML PEN SC SCH (20:39)
[2017-10-05] MEDS: NEPHROCAPS PO SCH (20:45)
[2017-10-06] VITALS (8 sets, daily range): BP systolic 173–193; BP diastolic 59–73; PULSE 62–79; TEMP 36.3–36.8; O2SAT 90–99
[2017-10-06] MEDS: MoRPHine SULFATE 2 MG/ML CARP IV PRN ×6 (04:26→23:56)
[2017-10-06] MEDS ORDERED: CLINDAMYCIN IV 600 MG in DEXTROSE 5% 50ML 50 ML IV ONE (06:00)
[2017-10-06] MEDS ORDERED: SODIUM CHLORIDE 0.9% 1000ML 1,000 ML IV SCH (06:00)
[2017-10-06] MEDS ORDERED: CLINDAMYCIN 600 MG/54 ML D5W IV SCH (06:00)
[2017-10-06] MEDS ORDERED: GLYCOPYRROLATE INJ 0.2 MG/ML VIAL ONE ×2 (06:27→08:04)
[2017-10-06] MEDS ORDERED: MIDAZOLAM HCL 1 MG/ML 2ML VIAL ONE (06:27)
[2017-10-06] MEDS ORDERED: ONDANSETRON INJ 2 MG/ML 2 ML VIAL ONE (06:27)
[2017-10-06] MEDS ORDERED: PROPOFOL IV EMULSION 10 MG/ML 20 ML VIAL IV ONE (06:27)
[2017-10-06] MEDS ORDERED: DEXAMETHASONE SOD INJ 4 MG/ML VIAL ONE (06:27)
[2017-10-06] MEDS ORDERED: LIDOCAINE HCL 2% 2 ML VIAL (20MG/ML) ONE (06:27)
[2017-10-06] MEDS ORDERED: NEOSTIGMINE METHYLSULFATE 5 MG/5 ML SYR ONE (06:27)
[2017-10-06] MEDS ORDERED: FENTANYL CITRATE INJ 50 MCG/1 ML 2 ML VIAL ONE (06:27)
[2017-10-06] MEDS: INSULIN ASPART 100 UNITS/ML 3 ML PEN SC SCH ×4 (06:30→20:24)
[2017-10-06] MEDS: CALCIUM ACETATE 667MG GELCAP PO SCH ×3 (06:30→16:25)
[2017-10-06] MEDS: PANCREAZE (LIPASE 4,200U) CAP PO SCH ×4 (06:30→20:18)
--- NOTE | 2017-10-06 06:56 | Progress Note ---
Progress Note Date of Service Oct 06, 2017. Progress Note Patient for repositioning of PD catheter. I have discussed the risks options and benefits of the procedure with the patient. The patient understands the risks options and benefits and agrees to the procedure. I have examined the patient, reviewed the History & Physical and in the interval since the performance of the History & Physical I have noted the following changes of clinical significance: No changes noted
[2017-10-06] MEDS ORDERED: LIDOCAINE HCL 1% 20 ML VIAL ONE (06:59)
[2017-10-06] MEDS ORDERED: HEPARIN SOD (PORCINE) 5000 UNIT/ML 1 ML VIAL ONE (06:59)
[2017-10-06] MEDS ORDERED: HEPARIN SOD (PORCINE) 1000 UNIT/ML 10 ML VIAL ONE (06:59)
[2017-10-06] MEDS ORDERED: BUPIVACAINE/EPINEPHRINE 0.5% MPF 1:200,000 30 ML VIAL ONE (06:59)
[2017-10-06] MEDS ORDERED: SODIUM BICARBONATE 8.4% INJ 50 MEQ/50 ML VIAL ONE (06:59)
[2017-10-06] MEDS ORDERED: BUPIVACAINE 0.5 % 5 MG/1 ML MPF 30ML VIAL ONE (07:02)
[2017-10-06] MEDS ORDERED: ATROPINE SULFATE 0.1 MG/ML 5ML SYR IV PRN (07:15)
[2017-10-06] MEDS ORDERED: EpHEDrine SULFATE INJ 50 MG/ML AMP IV PRN (07:15)
[2017-10-06] MEDS ORDERED: ONDANSETRON INJ 2 MG/ML 2 ML VIAL IV PRN (07:15)
[2017-10-06] MEDS ORDERED: MoRPHine SULFATE 10 MG/ML CARP/VIAL IV PRN (07:15)
[2017-10-06] MEDS ORDERED: NURSING VERBAL MED ORDER ONE ×2 (07:30→09:18)
[2017-10-06 07:46] LABS: CALCIUM 9.1 mg/dl (8.5-10.1); CREATININE 2.99 mg/dl (0.60-1.40); POTASSIUM 4.5 mmol/L (3.5-5.1)
[2017-10-06] MEDS: LACTULOSE SYRUP 30 GM/45 ML UDP PO SCH ×5 (08:00→20:20)
[2017-10-06] MEDS ORDERED: CISATRACURIUM BESYLATE IV SOLN 2 MG/ML 10 ML VIAL ONE (08:23)
--- NOTE | 2017-10-06 08:31 | [facility] Post Operative Brief Note ---
Immediate Operative Summary Operative Date Oct 06, 2017. Pre-Operative Diagnosis Malposition CAPD catheter Post-Operative Diagnosis Malposition CAPD catheter Procedure(s) Performed Laparoscopic Reposition of Peritoneal Catheter Surgeon Dr. Nitin Carroll Inspector Bicycle Surgeon(s) Dr. Zafar Flroes and Dr. Renee Escalera(Fellow) Estimated Blood Loss 1.5 ml Findings Consistent with Post-Op Diagnosis Specimens None Per Surgeon Drains None Anesthesia Type General Complication(s) none Disposition Accompanied Pt To Recover: no Disposition: Recovery Room / PACU
[2017-10-06] MEDS: HEPARIN SOD 5000 UNIT/0.5 ML CARP SQ SCH ×2 (09:00→20:20)
[2017-10-06] MEDS: FENTANYL CITRATE INJ 50 MCG/1 ML 2 ML VIAL IV PRN ×2 (09:03→09:08)
[2017-10-06] MEDS ORDERED: LABETALOL HCL IV 5 MG/ML 20ML IV ONE (09:21)
--- NOTE | 2017-10-06 09:57 | Anesthesiology Progress Note ---
Anesthesia Post Op Note Date & Time Oct 06, 2017 at 09:57 Vital Signs Pain Intensity: 2 Vital Signs Past 12 Hours Date Time Temp Pulse Resp B/P (MAP) Pulse Ox O2 Delivery O2 Flow Rate FiO2 10/06/17 09:55 72 23 184/70 99 Nasal Cannula 2 10/06/17 09:45 36.8 68 14 189/70 99 Nasal Cannula 2 10/06/17 09:35 66 12 178/65 99 Nasal Cannula 2 10/06/17 09:25 69 18 190/71 99 Nasal Cannula 2 10/06/17 09:15 74 15 189/75 100 Nasal Cannula 2 10/06/17 09:05 71 12 199/79 100 Oxymask 10 10/06/17 08:55 73 19 185/76 100 Oxymask 10 10/06/17 08:46 37.0 84 20 194/81 100 Oxymask 10 10/06/17 06:30 36.8 67 18 183/73 (109) 94 Room Air 67 10/06/17 00:15 36.5 72 20 184/71 (108) 98 Room Air 10/06/17 00:00 Room Air Notes Mental Status: alert / awake / arousable, participated in evaluation Pt Amnestic to Procedure: Yes Nausea / Vomiting: adequately controlled Pain: adequately controlled Airway Patency, RR, SpO2: stable & adequate BP & HR: stable & adequate Hydration State: stable & adequate Anesthetic Complications: no major complications apparent
[2017-10-06] MEDS: FUROSEMIDE 80 MG TAB PO SCH ×2 (11:19→20:19)
[2017-10-06] MEDS: PREGABALIN 50 MG CAP PO SCH ×2 (11:20→20:17)
[2017-10-06] MEDS: DOCUSATE SODIUM 100 MG CAP PO SCH ×2 (11:20→20:19)
[2017-10-06] MEDS: NIFEdipine 30 MG CR TAB PO SCH (11:20)
[2017-10-06] MEDS: NEPHROCAPS PO SCH (20:19)
[2017-10-06] MEDS: INSULIN GLARGINE SOLOSTAR 100 UNITS/ML 3 ML PEN SC SCH (20:25)
[2017-10-07] VITALS (20 sets, daily range): BP systolic 110–177; BP diastolic 49–76; PULSE 59–78; TEMP 36.4–36.6; O2SAT 93–95
[2017-10-07] MEDS: MoRPHine SULFATE 2 MG/ML CARP IV PRN ×8 (03:23→23:23)
[2017-10-07] MEDS: PANCREAZE (LIPASE 4,200U) CAP PO SCH ×4 (06:26→21:15)
[2017-10-07] MEDS: CALCIUM ACETATE 667MG GELCAP PO SCH ×3 (06:27→17:41)
[2017-10-07] MEDS ORDERED: EPOETIN ALFA 10,000 UNITS/ML VIAL IV. ONE (08:00)
[2017-10-07] MEDS ORDERED: EPOETIN ALFA INJ 12,000 UNITS in SYRINGE 0 ML IV. SCH (08:00)
[2017-10-07] MEDS: PREGABALIN 50 MG CAP PO SCH ×2 (08:28→21:24)
[2017-10-07] MEDS: LACTULOSE SYRUP 30 GM/45 ML UDP PO SCH ×3 (08:30→21:13)
[2017-10-07] MEDS: INSULIN ASPART 100 UNITS/ML 3 ML PEN SC SCH ×4 (08:35→21:23)
[2017-10-07] MEDS: HEPARIN SOD 5000 UNIT/0.5 ML CARP SQ SCH ×2 (09:00→21:00)
[2017-10-07] MEDS: DOCUSATE SODIUM 100 MG CAP PO SCH ×2 (13:29→21:14)
[2017-10-07] MEDS: NIFEdipine 30 MG CR TAB PO SCH (13:29)
[2017-10-07] MEDS: FUROSEMIDE 80 MG TAB PO SCH ×2 (13:29→21:14)
--- NOTE | 2017-10-07 15:28 | Progress Note ---
Progress Note Date of Service: Oct 07, 2017. Subjective 67 yo m with multiple medical problems, POD #1 after laparascopic repositioning of CAPD catheter, seen in f/u today. Pt admits pain in abd, but states is more tolerable than previous. Denies N/V, bleeding, other complaints. Objective Vital Signs Vital Signs Past 12 Hours Date Time Temp Pulse Resp B/P (MAP) Pulse Ox O2 Delivery O2 Flow Rate FiO2 10/07/17 13:05 36.6 70 141/70 (93) 10/07/17 12:45 78 119/49 10/07/17 12:30 68 113/55 10/07/17 12:15 67 124/66 10/07/17 12:00 65 132/59 10/07/17 11:45 65 117/57 10/07/17 11:30 63 141/71 10/07/17 11:22 63 143/65 10/07/17 11:00 65 156/75 10/07/17 10:45 70 135/67 10/07/17 10:30 59 149/76 10/07/17 10:15 66 130/66 10/07/17 10:00 69 132/55 10/07/17 09:45 69 110/62 10/07/17 09:30 61 137/59 10/07/17 09:10 36.6 63 157/68 (97) 10/07/17 08:00 Room Air 10/07/17 07:54 36.4 62 18 171/70 (103) 95 Room Air Exam CONST: A&O x3, NAD, chronically ill appeairng male ABD: soft, + tenderness generally, more notable over lower abd. Dressings dry. Not distended. Intake & Output 8-Hour Column 10/07/17 10/07/17 10/08/17 15:59 23:59 07:59 Intake Total 275 ml Output Total 2000 ml Balance -1725 ml 24-Hour Column 10/08/17 07:59 Intake Total 275 ml Output Total 2000 ml Balance -1725 ml Laboratory and Microbiology Results Past 24 Hours Test 10/06/17 17:05 10/06/17 19:55 10/07/17 08:12 10/07/17 13:21 Range/Units Bedside Glucose 280 242 177 186 70-99 mg/dl ASSESSMENT and PLAN: s/p repositioning of CAPD catheter ESRD on HD Pt ok for d/c from vascular standpoint. Will see in office in 2 wks. Ok to attempt use of CAPD catheter next week. Please call if needed.
--- NOTE | 2017-10-07 17:24 | Progress Note ---
Internal Med Progress Note Date of Service: Oct 07, 2017. Provider Documentation: SUBJECTIVE: The patient was seen and examined Complains of left sided abdominal pain Nausea and vomited once Has had dialysis this morning Still complains of some pain in abdomen Bowel not moved OBJECTIVE: Vital Signs-as noted below Exam: General-no distress at rest Eyes-normal ENT-normal Neck-supple Lungs-clear to ausucltate bilaterally Heart-Regular,no murmur Abdomen-Mildly distended,Tender left mid quadrant Extremities-NO edema Neuro-AAOx3 Lab data as noted below. ASSESSMENT & PLAN: Constipation Will try Suppository and Fleet enema LEFT SIDED ABDOMINAL PAIN Due to malfunction peritoneal dialysis cath CT abd showed malpositioned left lower quadrant peritoneal dialysis catheter. Catheter coiled within an extraperitoneal fluid collection that measures 7 x 5.6 x 4.4 cm No signs of infection No leukocytosis,procalcitonin normal and afebrile Appreciate Vascular Surgery input Plan to reposition the peritoneal dialysis cath on Wednesday Continue pain control Plan to reposition the peritoneal dialysis cath on Wednesday S/P Repositioning of the peritoneal catheter--can be used in 1 week pain is less but not totally gone HYPERKALEMIA Due to CKD stage 5 completed HD today case discussed with nephro stable CKD V Had HD done today -10/05/17 Nephrology on board No sign of fluid overload INTRADUCTAL PAPILLARY MUCINOUS NEOPLASM CT Abd showed . 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 Delacruz for the last 3yrs as per patient Stable HYPERTENSION BP Stable Possible related to pain Continue nifedipine, furosemide and hydralazine Will add hydralazine IV prn PULMONARY ATELECTASIS Incentive spirometry. Stable CELIAC DISEASE Gluten-free diet. 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 Well-controlled. Hgb A1C 6.4 on 08/09/17. Continue Lantus. DIABETIC NEUROPATHY Continue pregabalin. MULTIPLE SCLEROSIS Continue teriflunomide. PT / OT VTE PROPHYLAXIS SCD's. On heparin subd RESUSCITATION STATUS FULL CODE DISPOSITION Family Medicine follow-up with Dr. Machado. Nephrology follow-up with Dr. Wetzel. Consultants: Vascular Nephro likely home tomorrow Vital Signs: Date Time Temp Pulse Resp B/P (MAP) Pulse Ox O2 Delivery O2 Flow Rate FiO2 10/07/17 17:02 Room Air 10/07/17 15:49 36.4 72 18 160/66 (97) 93 Room Air 10/07/17 13:05 36.6 70 141/70 (93) 10/07/17 12:45 78 119/49 10/07/17 12:30 68 113/55 10/07/17 12:15 67 124/66 10/07/17 12:00 65 132/59 10/07/17 11:45 65 117/57 10/07/17 11:30 63 141/71 10/07/17 11:22 63 143/65 10/07/17 11:00 65 156/75 10/07/17 10:45 70 135/67 10/07/17 10:30 59 149/76 10/07/17 10:15 66 130/66 10/07/17 10:00 69 132/55 10/07/17 09:45 69 110/62 10/07/17 09:30 61 137/59 10/07/17 09:10 36.6 63 157/68 (97) 10/07/17 08:00 Room Air 10/07/17 07:54 36.4 62 18 171/70 (103) 95 Room Air 10/07/17 00:20 Room Air 10/07/17 00:00 36.4 69 18 177/68 (104) 93 Room Air Lab Results: Results Past 24 Hours Test 10/06/17 19:55 10/07/17 08:12 10/07/17 13:21 10/07/17 16:50 Range/Units Bedside Glucose 242 177 186 305 70-99 mg/dl
--- NOTE | 2017-10-07 18:30 | Nephrology Progress Note ---
Nephrology Progress Note Date of Service: Oct 07, 2017. Subjective abd pain prominent again though better than preop. had pd cath repositioned; had 2L off at hd Objective Date Time Temp Pulse Resp B/P (MAP) Pulse Ox O2 Delivery O2 Flow Rate FiO2 10/07/17 17:02 Room Air 10/07/17 15:49 36.4 72 18 160/66 (97) 93 Room Air 10/07/17 13:05 36.6 70 141/70 (93) 10/07/17 12:45 78 119/49 10/07/17 12:30 68 113/55 10/07/17 12:15 67 124/66 10/07/17 12:00 65 132/59 10/07/17 11:45 65 117/57 10/07/17 11:30 63 141/71 10/07/17 11:22 63 143/65 10/07/17 11:00 65 156/75 10/07/17 10:45 70 135/67 10/07/17 10:30 59 149/76 10/07/17 10:15 66 130/66 10/07/17 10:00 69 132/55 10/07/17 09:45 69 110/62 10/07/17 09:30 61 137/59 10/07/17 09:10 36.6 63 157/68 (97) 10/07/17 08:00 Room Air 10/07/17 07:54 36.4 62 18 171/70 (103) 95 Room Air 10/07/17 00:20 Room Air 10/07/17 00:00 36.4 69 18 177/68 (104) 93 Room Air Physical Exam: General Appearance: WD/WN, on RA, oriented x 3), + thin Eyes: EOMI ENT: hearing grossly normal Neck: supple Respiratory/Chest: lungs clear, normal breath sounds, no respiratory distress Cardiovascular: regular rate, rhythm, no edema Abdomen: normal bowel sounds, soft, + tenderness (PD cath LLQ) Extremities: non-tender Neurologic/Psych: alert, normal mood/affect, oriented x 3 Skin: normal color, no jaundice, warm/dry, + pallor Current Inpatient Medications Medications (Trade) Dose Ordered Sig/Emilia Route Start Time Stop Time Status Last Admin Dose Admin Ondansetron HCl (Zofran Inj) 4 mg Q6H PRN IV 09/30/17 22:00 10/30/17 21:59 10/05/17 14:53 4 MG Glucose (Glucose 40% Gel) 15-30 GRAMS 15 GRAMS... UD PRN PO 09/30/17 22:15 10/30/17 22:14 Glucose (Glucose Chew Tab) 4-8 Tablets 4 Tabl... UD PRN PO 09/30/17 22:15 10/30/17 22:14 Dextrose (Dextrose 50% 50ML Syringe) 25-50ML OF 50% DW IV FOR... UD PRN IV 09/30/17 22:15 10/30/17 22:14 Glucagon (Glucagon Inj) 1 mg UD PRN SQ 09/30/17 22:15 10/30/17 22:14 Calcium Acetate (Phoslo Cap) 2,001 mg AC PO 10/01/17 06:30 10/31/17 06:29 10/07/17 17:41 2,001 MG Furosemide (Lasix Tab) 80 mg QPM PO 10/01/17 21:00 10/31/17 20:59 10/06/17 20:19 80 MG Furosemide (Lasix Tab) 160 mg QAM PO 10/01/17 08:00 10/31/17 07:59 10/07/17 13:29 160 MG Hydralazine HCl (Apresoline Tab) 25 mg BID PO 10/01/17 08:00 10/31/17 07:59 10/06/17 20:20 25 MG Nitroglycerin (Nitrostat Tab) 0.4 mg PRN PRN UT 09/30/17 22:00 10/30/17 21:59 Pregabalin (Lyrica Cap) 50 mg BID PO 10/01/17 08:00 10/31/17 07:59 10/07/17 08:28 50 MG Amylase/Lipase/ Protease (Pancreaze (Lipase 4,200U) Cap) 3 cap ACHS PO 10/01/17 06:30 10/31/17 06:29 10/07/17 15:49 3 CAP Nifedipine (Procardia Xl Tab) 90 mg QAM PO 10/01/17 08:00 10/31/17 07:59 10/07/17 13:29 90 MG Miscellaneous Information (Order Awaiting Action) 1 ea QS N/A 10/01/17 00:00 10/31/17 00:00 Calcium Acetate (Phoslo Cap) 1,334 mg UD PRN PO 09/30/17 22:00 10/30/17 21:59 Insulin Glargine (Lantus Solostar Pen) BSG LANTUS UNITS S... HS SC 10/01/17 21:00 10/31/17 20:59 10/06/17 20:25 10 UNITS Insulin Aspart (novoLOG ASPART) SLIDING SCALE G... ACHS SC 10/01/17 06:30 10/31/17 06:29 10/07/17 17:47 4 UNITS Miscellaneous (Iv Fluids Completed) 1 ea PRN PRN N/A 10/01/17 01:30 10/01/18 01:29 Diphenhydramine HCl (Benadryl Cap) 25 mg Q8H PRN PO 10/01/17 10:00 10/31/17 09:59 10/06/17 01:42 25 MG Docusate Sodium (coLACE CAP) 100 mg BID PO 10/01/17 20:00 10/31/17 19:59 10/07/17 13:29 100 MG Lactulose (Chronulac Syrup) 30 gm TID PO 10/01/17 14:00 10/31/17 13:59 10/07/17 13:30 30 GM Ondansetron HCl (Zofran Inj) 4 mg Q6H PRN IV 10/02/17 10:00 11/01/17 09:59 Vitamin B Complex/ Vit C/Folic Acid (Nephrocaps) 1 cap HS PO 10/02/17 21:00 11/01/17 20:59 10/06/17 20:19 1 CAP Heparin Sodium (Porcine) (Heparin Sq 5000 Unit/0.5ml) 5,000 unit Q12 SQ 10/02/17 21:00 11/01/17 20:59 Morphine Sulfate (MoRPHine SULFATE INJ) 2 mg Q2H PRN IV 10/05/17 05:30 10/16/17 16:59 10/07/17 15:51 2 MG Prochlorperazine Edisylate 5 mg/ Syringe 5 ml @ 5 mls/min Q6H PRN IV 10/05/17 05:30 11/04/17 05:29 Last 24 Hours Test 10/06/17 19:55 10/07/17 08:12 10/07/17 13:21 10/07/17 16:50 Bedside Glucose 242 mg/dl 177 mg/dl 186 mg/dl 305 mg/dl Assessment & Plan 67 y/o M w/ ESRD on HD via TDC, chronic pancreatitis, multiple admissions for abd pain admitted 10/01 for PD catheter malpositioned in fluid pocket which is s/ p laparascopic repositioning 10/06 ESRD on HD -HD today w/ 2L removed to optimize volume status but w/ no heparin; next HD on 10/09 as outpt -continue binders and renavite qhs Malpositioned PD catheter w/ severe/intractable abdominal pain> repositioned 10/06 -surgery following, input appreciated -ok per surgery to use PD cath in one week; will update PD nurse but d/c on HD ->>VERY important in PD cath patients to ensure a BM daily > he is moving bowels daily Anemia of ESRD -routine epo w/ HD Appreciate consult; will follow with you. Care coordinated w/ Drs. Arteaga & Carly
[2017-10-07] MEDS: NEPHROCAPS PO SCH (21:14)
[2017-10-07] MEDS: INSULIN GLARGINE SOLOSTAR 100 UNITS/ML 3 ML PEN SC SCH (21:22)
[2017-10-08] MEDS: MoRPHine SULFATE 2 MG/ML CARP IV PRN ×7 (01:19→23:46)
[2017-10-08] MEDS: CALCIUM ACETATE 667MG GELCAP PO SCH ×3 (06:02→17:24)
[2017-10-08] MEDS: PANCREAZE (LIPASE 4,200U) CAP PO SCH ×4 (06:04→20:26)
[2017-10-08 06:29] LABS: HEMOGLOBIN 10.4 g/dL (14.0-18.0); MEAN CELL VOLUME 97.2 fL (80-100); MEAN CORPUSCULAR HEMOGLOBIN 32.6 pg (25-34); MEAN CORPUSCULAR HGB CONC 33.5 g/dl (32-36); MEAN PLATELET VOLUME 8.9 fL (7.4-10.4); PLATELET COUNT 191 K/uL (130-400); RED CELL DISTRIBUTION WIDTH CV 13.2 % (11.5-14.5); RED CELL DISTRIBUTION WIDTH SD 46.3 fL (36.4-46.3); WHITE BLOOD COUNT 5.32 K/uL (4.8-10.8)
[2017-10-08 07:35] VITALS: BP 150/68; PULSE 72; TEMP 36.6; O2SAT 92
[2017-10-08] MEDS: PREGABALIN 50 MG CAP PO SCH ×2 (07:54→20:33)
[2017-10-08] MEDS: LACTULOSE SYRUP 30 GM/45 ML UDP PO SCH ×3 (07:54→20:00)
[2017-10-08] MEDS: NIFEdipine 30 MG CR TAB PO SCH (07:55)
[2017-10-08] MEDS: FUROSEMIDE 80 MG TAB PO SCH ×2 (07:55→20:28)
[2017-10-08] MEDS: DOCUSATE SODIUM 100 MG CAP PO SCH ×2 (07:56→20:00)
[2017-10-08] MEDS: HEPARIN SOD 5000 UNIT/0.5 ML CARP SQ SCH ×2 (07:58→20:20)
[2017-10-08] MEDS: INSULIN ASPART 100 UNITS/ML 3 ML PEN SC SCH ×4 (08:33→20:35)
[2017-10-08 08:47] VITALS: O2SAT 92
[2017-10-08] MEDS ORDERED: BISACODYL 10 MG SUPP PR STA (10:16)
[2017-10-08] MEDS ORDERED: SOD PHOSPHATE/SOD BIPHOSPHATE ENEMA 132 ML BTL PR PRN (11:30)
[2017-10-08 13:10] VITALS: Ht 175.3 cm; Wt 64.6 kg
[2017-10-08 14:57] VITALS: BP 146/61; PULSE 65; TEMP 36.4; O2SAT 95
--- NOTE | 2017-10-08 16:33 | Progress Note ---
Internal Med Progress Note Date of Service: Oct 08, 2017. Provider Documentation: SUBJECTIVE: The patient was seen and examined Complains of left sided abdominal pain Nausea and vomited once Has had dialysis this morning Still complains of some pain in abdomen Bowel not moved since 4th Has had minimal confusion this AM-cleared later OBJECTIVE: Vital Signs-as noted below Exam: General-no distress at rest Eyes-normal ENT-normal Neck-supple Lungs-clear to ausucltate bilaterally Heart-Regular,no murmur Abdomen-Mildly distended,Tender left mid quadrant Extremities-NO edema Neuro-AAOx3 Lab data as noted below. ASSESSMENT & PLAN: Constipation Will try Suppository and Fleet enema today Increase ambulation and more fluid LEFT SIDED ABDOMINAL PAIN Due to malfunction peritoneal dialysis cath CT abd showed malpositioned left lower quadrant peritoneal dialysis catheter. Catheter coiled within an extraperitoneal fluid collection that measures 7 x 5.6 x 4.4 cm No signs of infection No leukocytosis,procalcitonin normal and afebrile Appreciate Vascular Surgery input Plan to reposition the peritoneal dialysis cath on Wednesday Continue pain control Plan to reposition the peritoneal dialysis cath on Wednesday S/P Repositioning of the peritoneal catheter--can be used in 1 week pain is less but not totally gone HYPERKALEMIA Due to CKD stage 5 completed HD today case discussed with nephro stable CKD V Had HD done today -10/05/17 Nephrology on board No sign of fluid overload HD tomorrow before discharge INTRADUCTAL PAPILLARY MUCINOUS NEOPLASM CT Abd showed . 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 Delacruz for the last 3yrs as per patient Stable HYPERTENSION BP Stable Possible related to pain Continue nifedipine, furosemide and hydralazine Will add hydralazine IV prn PULMONARY ATELECTASIS Incentive spirometry. Stable CELIAC DISEASE Gluten-free diet. 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 Well-controlled. Hgb A1C 6.4 on 08/09/17. Continue Lantus. DIABETIC NEUROPATHY Continue pregabalin. MULTIPLE SCLEROSIS Continue teriflunomide. PT / OT VTE PROPHYLAXIS SCD's. On heparin subd RESUSCITATION STATUS FULL CODE DISPOSITION Family Medicine follow-up with Dr. Machado. Nephrology follow-up with Dr. Wetzel. Consultants: Vascular Nephro No ride to go home today ,some confusion today Likely home tomorrow after dialysis Vital Signs: Date Time Temp Pulse Resp B/P (MAP) Pulse Ox O2 Delivery O2 Flow Rate FiO2 10/08/17 14:57 36.4 65 16 146/61 (89) 95 Room Air 10/08/17 08:47 92 Room Air 10/08/17 08:00 Room Air 10/08/17 07:35 36.6 72 14 150/68 (95) 92 Room Air 10/08/17 00:00 Room Air 10/07/17 22:50 36.5 72 18 149/62 (91) 95 Room Air 10/07/17 17:02 Room Air Lab Results: Results Past 24 Hours Test 10/07/17 16:50 10/07/17 20:11 10/08/17 06:10 10/08/17 07:49 Range/Units Bedside Glucose 305 201 195 70-99 mg/dl White Blood Count 5.32 4.8-10.8 K/uL Red Blood Count 3.19 4.7-6.1 M/uL Hemoglobin 10.4 14.0-18.0 g/dL Hematocrit 31.0 42-52 % Mean Corpuscular Volume 97.2 80-100 fL Mean Corpuscular Hemoglobin 32.6 25-34 pg Mean Corpuscular Hemoglobin Concent 33.5 32-36 g/dl RDW Standard Deviation 46.3 36.4-46.3 fL RDW Coefficient of Variation 13.2 11.5-14.5 % Platelet Count 191 130-400 K/uL Mean Platelet Volume 8.9 7.4-10.4 fL Test 10/08/17 11:15 Range/Units Bedside Glucose 275 70-99 mg/dl
[2017-10-08] MEDS: NEPHROCAPS PO SCH (20:26)
[2017-10-08] MEDS: INSULIN GLARGINE SOLOSTAR 100 UNITS/ML 3 ML PEN SC SCH (20:34)
[2017-10-09] VITALS (23 sets, daily range): BP systolic 120–175; BP diastolic 54–77; PULSE 64–78; TEMP 36.3–36.9; O2SAT 92–97
[2017-10-09] MEDS: PANCREAZE (LIPASE 4,200U) CAP PO SCH ×4 (07:47→20:18)
[2017-10-09] MEDS: LACTULOSE SYRUP 30 GM/45 ML UDP PO SCH ×3 (07:47→20:21)
[2017-10-09] MEDS: DOCUSATE SODIUM 100 MG CAP PO SCH ×2 (07:47→20:20)
[2017-10-09] MEDS: PREGABALIN 50 MG CAP PO SCH ×2 (07:49→20:23)
[2017-10-09] MEDS: CALCIUM ACETATE 667MG GELCAP PO SCH ×3 (07:49→17:20)
[2017-10-09] MEDS: NIFEdipine 30 MG CR TAB PO SCH (07:49)
[2017-10-09] MEDS ORDERED: EPOETIN ALFA 10,000 UNITS/ML VIAL IV. ONE (08:00)
[2017-10-09] MEDS ORDERED: EPOETIN ALFA INJ 8,000 UNITS in SYRINGE 0 ML IV. SCH (08:00)
[2017-10-09] MEDS ORDERED: EPOETIN ALFA IV. SCH (08:00)
[2017-10-09] MEDS ORDERED: HEPARIN SOD (PORCINE) 1000 UNIT/ML 10 ML VIAL IV SCH (08:00)
[2017-10-09] MEDS: MoRPHine SULFATE 2 MG/ML CARP IV PRN ×2 (08:06→12:52)
[2017-10-09] MEDS: HEPARIN SOD 5000 UNIT/0.5 ML CARP SQ SCH ×2 (08:22→20:19)
[2017-10-09] MEDS: INSULIN ASPART 100 UNITS/ML 3 ML PEN SC SCH ×4 (08:32→20:18)
[2017-10-09] MEDS: HEPARIN SOD (PORCINE) 1000 UNIT/ML 10 ML VIAL IV SCH ×3 (09:45→16:01)
--- NOTE | 2017-10-09 11:11 | Progress Note ---
Internal Med Progress Note Date of Service: Oct 09, 2017. Provider Documentation: SUBJECTIVE: The patient was seen and examined Complains of left sided abdominal pain Bowel moved Has been in Dialysis this AM Likely to be discharged today Minimal pain in abdomen OBJECTIVE: Vital Signs-as noted below Exam: General-no distress at rest Eyes-normal ENT-normal Neck-supple Lungs-clear to ausucltate bilaterally Heart-Regular,no murmur Abdomen-Mildly distended,Tender left mid quadrant Extremities-NO edema Neuro-AAOx3 Lab data as noted below. ASSESSMENT & PLAN: Constipation Will try Suppository and Fleet enema today Increase ambulation and more fluid Bowel moved Feels a lot better today LEFT SIDED ABDOMINAL PAIN Due to malfunction peritoneal dialysis cath CT abd showed malpositioned left lower quadrant peritoneal dialysis catheter. Catheter coiled within an extraperitoneal fluid collection that measures 7 x 5.6 x 4.4 cm No signs of infection No leukocytosis,procalcitonin normal and afebrile Appreciate Vascular Surgery input Plan to reposition the peritoneal dialysis cath on Wednesday Continue pain control Plan to reposition the peritoneal dialysis cath on Wednesday S/P Repositioning of the peritoneal catheter--can be used in 1 week pain is controlled HYPERKALEMIA Due to CKD stage 5 completed HD today case discussed with nephro stable CKD V Had HD done today -10/05/17 Nephrology on board No sign of fluid overload HD tomorrow before discharge INTRADUCTAL PAPILLARY MUCINOUS NEOPLASM CT Abd showed . 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 Delacruz for the last 3yrs as per patient Stable HYPERTENSION BP Stable Possible related to pain Continue nifedipine, furosemide and hydralazine Will add hydralazine IV prn BP is reasonably controlled PULMONARY ATELECTASIS Incentive spirometry. Stable CELIAC DISEASE Gluten-free diet. 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 Well-controlled. Hgb A1C 6.4 on 08/09/17. Continue Lantus. DIABETIC NEUROPATHY Continue pregabalin. MULTIPLE SCLEROSIS Continue teriflunomide. PT / OT VTE PROPHYLAXIS SCD's. On heparin subd RESUSCITATION STATUS FULL CODE DISPOSITION Family Medicine follow-up with Dr. Machado. Nephrology follow-up with Dr. Wetzel. Consultants: Vascular Nephro No ride to go home today ,some confusion today Likely home tomorrow after dialysis Vital Signs: Date Time Temp Pulse Resp B/P (MAP) Pulse Ox O2 Delivery O2 Flow Rate FiO2 10/09/17 12:37 36.6 78 175/77 (109) 10/09/17 12:00 71 146/68 10/09/17 11:45 70 146/67 10/09/17 11:30 70 153/72 10/09/17 11:15 70 142/56 10/09/17 11:00 70 151/73 10/09/17 10:45 69 161/63 10/09/17 10:30 70 135/66 10/09/17 10:27 36.9 66 16 97 Room Air 10/09/17 10:15 67 137/66 10/09/17 10:00 66 136/58 10/09/17 09:45 65 132/62 10/09/17 09:30 66 146/64 10/09/17 09:15 67 120/60 10/09/17 09:00 64 132/56 10/09/17 08:44 64 130/60 10/09/17 08:40 36.9 64 135/65 (88) 10/09/17 08:01 36.3 70 16 156/59 (91) 97 10/09/17 08:00 97 Room Air 10/09/17 00:10 Room Air 10/09/17 00:05 36.6 65 18 143/54 (83) 94 Room Air 10/08/17 16:30 Room Air 10/08/17 14:57 36.4 65 16 146/61 (89) 95 Room Air Lab Results: Results Past 24 Hours Test 10/08/17 16:46 10/08/17 20:24 10/09/17 07:57 Range/Units Bedside Glucose 261 184 152 70-99 mg/dl
[2017-10-09] MEDS: FUROSEMIDE 80 MG TAB PO SCH ×2 (12:48→20:20)
[2017-10-09] MEDS ORDERED: PHS667 PO (13:21)
--- NOTE | 2017-10-09 13:23 | Discharge Instructions ---
Discharge Instructions Date of Service Oct 09, 2017. Admission Reason for Admission: Ab Pain, Malposition Peritoneal Dialysis Catheter Discharge Discharge Diagnosis / Problem: Abdominal Pain,Correction of Malpositioned PD catheter Discharge Goals Goal(s): Prevent Disease Progression Activity Recommendations Activity Limitations: resume your previous activity . Instructions / Follow-Up Instructions / Follow-Up Please make an appointment with your PCP in 1 week.Keep doing Hemodialysis and per Nephrology Current Hospital Diet Patient's current hospital diet: Gluten Free Diet, Regular Diet Discharge Diet Recommended Diet: Regular Diet, Gluten Free Diet Procedures Procedures Performed: Laparoscopic Reposition of Peritoneal Catheter Pending Studies Studies pending at discharge: no Medical Emergencies . Who to Call and When: Medical Emergencies: If at any time you feel your situation is an emergency, please call 911 immediately. . Non-Emergent Contact Non-Emergency issues call your: Primary Care Provider . Past History Medical & Surgical History: (1) Malposition of peritoneal dialysis catheter (2) ESRD (end stage renal disease) on dialysis (3) DM type 2 (diabetes mellitus, type 2) (4) Multiple sclerosis (5) Celiac disease (6) Abdominal pain (7) Peritoneal dialysis catheter dysfunction (8) Diabetic retinopathy (9) Diabetic neuropathy (10) Diabetes mellitus due to underlying condition with chronic kidney disease on chronic dialysis, with long-term current use of insulin (11) Status post cholecystectomy (12) AV fistula (13) Peritoneal dialysis catheter in place . "Provider Documentation" section prepared by Elier Arteaga. .
--- NOTE | 2017-10-09 16:22 | Dialysis Progress Note ---
Nephrology Dialysis Note Date of Service: Oct 09, 2017. Subjective abd pain persists; seen on HD at about 0920; no c/o. Objective Date Time Temp Pulse Resp B/P (MAP) Pulse Ox O2 Delivery O2 Flow Rate FiO2 10/09/17 14:37 36.5 75 18 131/64 (86) 97 10/09/17 12:37 36.6 78 175/77 (109) 10/09/17 12:00 71 146/68 10/09/17 11:45 70 146/67 10/09/17 11:30 70 153/72 10/09/17 11:15 70 142/56 10/09/17 11:00 70 151/73 10/09/17 10:45 69 161/63 10/09/17 10:30 70 135/66 10/09/17 10:27 36.9 66 16 97 Room Air 10/09/17 10:15 67 137/66 10/09/17 10:00 66 136/58 10/09/17 09:45 65 132/62 10/09/17 09:30 66 146/64 10/09/17 09:15 67 120/60 10/09/17 09:00 64 132/56 10/09/17 08:44 64 130/60 10/09/17 08:40 36.9 64 135/65 (88) 10/09/17 08:01 36.3 70 16 156/59 (91) 97 10/09/17 08:00 97 Room Air 10/09/17 00:10 Room Air 10/09/17 00:05 36.6 65 18 143/54 (83) 94 Room Air 10/08/17 16:30 Room Air Physical Exam: General Appearance: WD/WN, on RA, oriented x 3), + thin Eyes: EOMI ENT: hearing grossly normal Neck: supple Respiratory/Chest: lungs clear, normal breath sounds, no respiratory distress Cardiovascular: regular rate, rhythm, no edema Abdomen: normal bowel sounds, soft, + tenderness (PD cath LLQ) Extremities: non-tender Neurologic/Psych: alert, normal mood/affect, oriented x 3 Skin: normal color, no jaundice, warm/dry, + pallor Current Inpatient Medications Medications (Trade) Dose Ordered Sig/Emilia Route Start Time Stop Time Status Last Admin Dose Admin Ondansetron HCl (Zofran Inj) 4 mg Q6H PRN IV 09/30/17 22:00 10/30/17 21:59 10/05/17 14:53 4 MG Glucose (Glucose 40% Gel) 15-30 GRAMS 15 GRAMS... UD PRN PO 09/30/17 22:15 10/30/17 22:14 Glucose (Glucose Chew Tab) 4-8 Tablets 4 Tabl... UD PRN PO 09/30/17 22:15 10/30/17 22:14 Dextrose (Dextrose 50% 50ML Syringe) 25-50ML OF 50% DW IV FOR... UD PRN IV 09/30/17 22:15 10/30/17 22:14 Glucagon (Glucagon Inj) 1 mg UD PRN SQ 09/30/17 22:15 10/30/17 22:14 Calcium Acetate (Phoslo Cap) 2,001 mg AC PO 10/01/17 06:30 10/31/17 06:29 10/09/17 12:49 2,001 MG Furosemide (Lasix Tab) 80 mg QPM PO 10/01/17 21:00 10/31/17 20:59 10/08/17 20:28 80 MG Furosemide (Lasix Tab) 160 mg QAM PO 10/01/17 08:00 10/31/17 07:59 10/09/17 12:48 160 MG Hydralazine HCl (Apresoline Tab) 25 mg BID PO 10/01/17 08:00 10/31/17 07:59 10/09/17 07:49 25 MG Nitroglycerin (Nitrostat Tab) 0.4 mg PRN PRN UT 09/30/17 22:00 10/30/17 21:59 Pregabalin (Lyrica Cap) 50 mg BID PO 10/01/17 08:00 10/31/17 07:59 10/09/17 07:49 50 MG Amylase/Lipase/ Protease (Pancreaze (Lipase 4,200U) Cap) 3 cap ACHS PO 10/01/17 06:30 10/31/17 06:29 10/09/17 12:48 3 CAP Nifedipine (Procardia Xl Tab) 90 mg QAM PO 10/01/17 08:00 10/31/17 07:59 10/09/17 07:49 90 MG Miscellaneous Information (Order Awaiting Action) 1 ea QS N/A 10/01/17 00:00 10/31/17 00:00 Calcium Acetate (Phoslo Cap) 1,334 mg UD PRN PO 09/30/17 22:00 10/30/17 21:59 Insulin Glargine (Lantus Solostar Pen) BSG LANTUS UNITS S... HS SC 10/01/17 21:00 10/31/17 20:59 10/08/17 20:34 8 UNITS Insulin Aspart (novoLOG ASPART) SLIDING SCALE G... ACHS SC 10/01/17 06:30 10/31/17 06:29 10/09/17 08:32 1 UNITS Miscellaneous (Iv Fluids Completed) 1 ea PRN PRN N/A 10/01/17 01:30 10/01/18 01:29 Diphenhydramine HCl (Benadryl Cap) 25 mg Q8H PRN PO 10/01/17 10:00 10/31/17 09:59 10/08/17 01:19 25 MG Docusate Sodium (coLACE CAP) 100 mg BID PO 10/01/17 20:00 10/31/17 19:59 10/09/17 07:47 100 MG Lactulose (Chronulac Syrup) 30 gm TID PO 10/01/17 14:00 10/31/17 13:59 10/09/17 14:02 30 GM Ondansetron HCl (Zofran Inj) 4 mg Q6H PRN IV 10/02/17 10:00 11/01/17 09:59 Vitamin B Complex/ Vit C/Folic Acid (Nephrocaps) 1 cap HS PO 10/02/17 21:00 11/01/17 20:59 10/08/17 20:26 1 CAP Heparin Sodium (Porcine) (Heparin Sq 5000 Unit/0.5ml) 5,000 unit Q12 SQ 10/02/17 21:00 11/01/17 20:59 Prochlorperazine Edisylate 5 mg/ Syringe 5 ml @ 5 mls/min Q6H PRN IV 10/05/17 05:30 11/04/17 05:29 Heparin Sodium (Porcine) (Heparin Iv Bolus) 1,000 unit TODAY@0800 IV 10/09/17 08:00 10/09/17 18:00 Epoetin Karan 8000 units/Syringe 0.8 ml @ 1 mls/min TODAY@0800 IV. 10/09/17 08:00 10/09/17 18:00 10/09/17 10:58 1 MLS/MIN Last 24 Hours Test 10/08/17 16:46 10/08/17 20:24 10/09/17 07:57 10/09/17 13:41 Bedside Glucose 261 mg/dl 184 mg/dl 152 mg/dl 175 mg/dl Assessment & Plan 67 y/o M w/ ESRD on HD via TDC, chronic pancreatitis, multiple admissions for abd pain admitted 10/01 for PD catheter malpositioned in fluid pocket which is s/ p laparascopic repositioning 10/06 ESRD on HD -HD today w/ uf as tolerated; next hd on 10/12 as inpt/outpt -continue binders and renavite qhs Malpositioned PD catheter w/ severe/intractable abdominal pain> repositioned 10/06 -ok per surgery to use PD cath in one week; PD nurse aware; cont HD for now ->>VERY important in PD cath patients to ensure a BM daily > he is moving bowels daily Anemia of ESRD -routine epo w/ HD Appreciate consult; will follow with you.
[2017-10-09] MEDS: NEPHROCAPS PO SCH (20:20)
[2017-10-09] MEDS: INSULIN GLARGINE SOLOSTAR 100 UNITS/ML 3 ML PEN SC SCH (20:26)
[2017-10-10] VITALS: O2SAT 95
[2017-10-10] MEDS: CALCIUM ACETATE 667MG GELCAP PO SCH (05:24)
[2017-10-10] MEDS: PANCREAZE (LIPASE 4,200U) CAP PO SCH (05:24)
[2017-10-10] MEDS: DOCUSATE SODIUM 100 MG CAP PO SCH (05:25)
[2017-10-10] MEDS: LACTULOSE SYRUP 30 GM/45 ML UDP PO SCH (05:25)
[2017-10-10] MEDS: FUROSEMIDE 80 MG TAB PO SCH (05:26)
[2017-10-10] MEDS: NIFEdipine 30 MG CR TAB PO SCH (05:26)
[2017-10-10] MEDS: HEPARIN SOD 5000 UNIT/0.5 ML CARP SQ SCH (05:26)
[2017-10-10] MEDS: PREGABALIN 50 MG CAP PO SCH (05:29)
--- NOTE | 2017-10-11 07:37 | Discharge Summary ---
Discharge Summary Date of Service Oct 11, 2017. Discharge Summary Admission Date: Oct 01, 2017 at 11:07 Discharge Date: Oct 09, 2017 Discharge Disposition: Home with services Principal Diagnosis: Abdominal Pain,Correction of Malpositioned PD catheter Secondary Diagnoses/Problems: Please see H&P and Hospital Progress note Consultations: Vascular & Nephro Medication Reconciliation New Medications: Calcium Acetate (Phoslo 667 Mg) 667 Mg Cap 1334 MG PO UD PRN for snack for 30 Days, #90 CAP Continued Medications: B-Complex W/ C & Folic Acid (Susannah-Som) 1 Tab Tab 1 TAB PO DAILY Calcium Acetate (Phosphate Bin (Phoslo 667 Mg) 667 Mg Cap 0 PO UD Take 3 pills with meals. Take 2 pills with snacks. Furosemide (Furosemide) 80 Mg Tab 80 MG PO QPM Furosemide (Lasix) 80 Mg Tab 160 MG PO QAM, TAB Hydralazine Hcl (Apresoline) 25 Mg Tab 25 MG PO BID Nifedipine (Nifedipine ER) 90 Mg Tabcr 1 TAB PO QAM Nitroglycerin (Nitrostat) 0.4 Mg Sub 0.4 MG UT PRN, SUB Ondansetron (Ondansetron HCl) 4 Mg Tab 4 MG PO Q8 PRN for Nausea or Vomiting Pancrelipase (Lipase-Protease- (Creon 71392) 1 Cap Cap 1 CAP PO ACHS Pregabalin (Lyrica) 50 Mg Cap 50 MG PO BID Simvastatin (Zocor) 10 Mg Tab 10 MG PO QPM, TAB Teriflunomide (Aubagio) 14 Mg Tab 14 MG PO DAILY [Lantus] () 6-10 UNITS SC UD PT TAKES IN THE EVENING DEPENDING ON RESULTS OF BSG Admission Information HPI (per Admitting provider): 67-year-old male followed by Dr. Machado for Family Medicine and Dr. Wetzel for Nephrology. History of chronic kidney disease stage V, diabetes mellitus type 2, and other problems as noted below. CKD has been managed with hemodialysis for some time. Developed an abscess in or near AV fistula in the left upper extremity about 2 months ago. Was hospitalized at [facility] for treatment of the infection. Temporary hemodialysis catheter was placed and was utilized while the infection in his left arm was being treated. Plan was made to transition to peritoneal dialysis. Peritoneal dialysis catheter placed 09/08/17. Over the past 1-2 days he has developed pain in the lower abdomen at the site of the peritoneal dialysis catheter insertion. Pain is severe. It is aggravated by coughing and radiates toward the left groin. Has some nausea, no emesis, diarrhea, melena, hematochezia. No fever, chills. Has had intermittent night sweats for the past few months. Underwent hemodialysis today. Referred to Emergency Department at [facility] for evaluation of abdominal pain. Received IV morphine with improvement pain. CT demonstrated a fluid collection in the region of the peritoneal dialysis catheter. Case was discussed with Nephrology and patient was referred to [facility] for further evaluation and management. Past Medical/Surgical History Chronic and Resolved Medical Problems: (1) Anemia in chronic renal disease Status: Chronic (2) Carotid arterial disease Status: Chronic (3) Celiac disease Status: Chronic (4) Chronic pancreatitis Status: Chronic (5) Diabetes mellitus due to underlying condition with chronic kidney disease on chronic dialysis, with long-term current use of insulin Status: Chronic (6) Diabetic neuropathy Status: Chronic (7) Diabetic retinopathy Status: Chronic (8) DM type 2 (diabetes mellitus, type 2) Status: Chronic (9) ESRD (end stage renal disease) on dialysis Status: Chronic (10) GERD (gastroesophageal reflux disease) Status: Chronic (11) Hyperlipemia Status: Chronic (12) Hypertension Status: Chronic (13) Intraductal papillary mucinous adenoma of pancreas Status: Chronic (14) Multiple sclerosis Status: Chronic Surgical Problems: (1) AV fistula Permanent Comment: left upper extremity Status: Chronic (2) History of ERCP Permanent Comment: 05/2017 - Dr Jayme LEVY. choledocholithiasis Status: Resolved (4) Peritoneal dialysis catheter in place Permanent Comment: Placed 09/08/[address] Carroll Status: Chronic (6) Status post cholecystectomy Status: Chronic Family History FATHER Hypertension Heart disease MOTHER Diabetes mellitus Social History Smoking Status: Former Smoker Alcohol Use: none Allergies Coded Allergies: Codeine (Verified Allergy, Severe, THROAT SWELLS, 09/08/17) Penicillins (Verified Allergy, Severe, ANAPHYLAXIS, 09/08/17) Hydromorphone (Verified Allergy, Mild, throat swelling, nausea, 09/08/17) Acetaminophen (Unverified Allergy, Unknown, "SWELL UP", 09/08/17) PER PCP RECORDS Bismuth Subsalicylate (Unverified Allergy, Unknown, HIVES, 09/08/17) PER PCP RECORDS Ciprofloxacin (Unverified Allergy, Unknown, HIVES, 09/08/17) PER PCP RECORDS Magnesium Hydroxide (Unverified Allergy, Unknown, RASH, 08/30/17) PER PCP RECORDS Oxycodone (Unverified Allergy, Unknown, "SWELL UP", 08/30/17) PER PCP RECORDS FIONA Inhibitors (Verified Adverse Reaction, Mild, NAUSEA AND VOMITING, HYPERKALEMIA, 08/30/17) Ibuprofen (Verified Adverse Reaction, Mild, GI UPSET, 08/30/17) Pravastatin (Verified Adverse Reaction, Mild, NAUSEA AND VOMITING, 08/30/17 ) Home Medications Scheduled B-Complex W/ C & Folic Acid (Susannah-Som), 1 TAB PO DAILY Calcium Acetate (Phosphate Bin (Phoslo 667 Mg), 0 PO UD Furosemide (Furosemide), 80 MG PO QPM Furosemide (Lasix), 160 MG PO QAM Hydralazine Hcl (Apresoline), 25 MG PO BID Nifedipine (Nifedipine ER), 1 TAB PO QAM Nitroglycerin (Nitrostat), 0.4 MG UT PRN Pancrelipase (Lipase-Protease- (Creon 16873), 1 CAP PO ACHS Pregabalin (Lyrica), 50 MG PO BID Simvastatin (Zocor), 10 MG PO QPM Teriflunomide (Aubagio), 14 MG PO DAILY [Lantus], 6-10 UNITS SC UD Scheduled PRN Ondansetron (Ondansetron HCl), 4 MG PO Q8 PRN for Nausea or Vomiting Review of Systems Constitutional: + sweats, No fever, No chills Eyes: + problem reported (Cataracts) ENT: + nasal symptoms (Sinus congestion), No sore throat Respiratory: + cough (Mild, nonproductive), + shortness of breath (Mild) Cardiovascular: No chest pain, No edema Abdomen: + problem reported (As noted above in HPI) Musculoskeletal: + joint pain (Right knee pain) Genitourinary - Male: No hematuria, No dysuria Neurologic: + weakness, + problem reported (Multiple sclerosis, ambulates with cane) Endocrine: + fatigue, + problem reported (Blood sugars well controlled), No excessive thirst, No excessive urination Hematologic / Lymphatic: + abnormal bleeding/bruising Integumentary: No rash, No new/changing skin lesions Physical Exam H&P v2 Physical Exam General Appearance: no apparent distress, + mild distress, + thin Head: atraumatic Eyes: normal inspection, PERRL, EOMI, sclerae normal, + pertinent finding ( Conjunctivae clear) ENT: normal ENT inspection, hearing grossly normal, + pertinent finding ( Oropharynx clear) Neck: thyroid normal, trachea midline Respiratory/Chest: lungs clear (Auscultation and percussion), no respiratory distress, no accessory muscle use Cardiovascular: regular rate, rhythm, no edema, no gallop, no JVD, no murmur, normal peripheral pulses Abdomen/GI: normal bowel sounds, soft, no organomegaly, + pertinent finding ( Lower abdominal peritoneal dialysis catheter with surrounding tenderness; no erythema or drainage) Extremities/Musculoskelatal: no calf tenderness, + pertinent finding (No cyanosis or digital clubbing; AV fistula left upper extremity) Neurologic/Psych: finish sander II-XII nml as tested (PERRL, EOMI, no facial palsy, no dysarthria), no motor/sensory deficits (Motor testing of upper and lower extremities grossly intact), alert, normal mood/affect, oriented x 3 Skin: normal color, warm/dry, no rash Lymphatic: no adenopathy (Cervical) Diagnostics H&P v2 Diagnostics Laboratory Results Labs performed earlier today at [facility] at 1400: Hemoglobin 9.9, white count 6950, platelet count 219,000. PT 12.7, INR 0.98. Sodium 139, potassium 4.0, chloride 97, CO2 27, BUN 18, creatinine 1.8, glucose 273. . Diagnostic Radiology Diagnostic imaging performed today at [facility]: Chest x-ray showed minimal left lower lobe atelectasis, no infiltrates, effusions, CHF. CT of abdomen and pelvis demonstrated peritoneal dialysis catheter in left lower abdomen with the pigtail located within a 3.8 x 5.3 x 8.0 cm collection of extraperitoneal fluid posterior to the left abdominal rectus. . Impression H&P v2 Impression Assessment and Plan ABDOMINAL PAIN / MALFUNCTION PERITONEAL DIALYSIS CATHETER Severe abdominal pain with CT findings as summarized above. No fever or leukocytosis. Check procalcitonin with next labs. Consult Vascular Surgery. CKD V 3-hour hemodialysis treatment today. Management per Nephrology. HYPERTENSION Continue nifedipine and hydralazine with hold parameters. PULMONARY ATELECTASIS Incentive spirometry. CELIAC DISEASE Gluten-free diet. 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 Well-controlled. Hgb A1C 6.4 on 08/09/17. Glipizide recently discontinued. Uses Lantus, usually 6-10 units HS. Nauseated this evening. Fingerstick blood sugar 142. Lantus 4 units tonight, then per sliding scale. NovoLog coverage with meals. DIABETIC NEUROPATHY Continue pregabalin. MULTIPLE SCLEROSIS Continue teriflunomide. PT / OT if hospital stay prolonged. VTE PROPHYLAXIS No anticoagulants in anticipation of possible invasive procedures. SCD's. Ambulate. RESUSCITATION STATUS Discussed with patient. He has a living will. He would like resuscitation attempted in the event of a cardiopulmonary arrest if there is a reasonable chance of a meaningful recovery, but does not want prolonged extraordinary measures if prognosis is poor. Therefore, code status = "Level 1" (full resuscitation). DISPOSITION Observation status on Med-Surg Unit per Case Management. Will need changed to inpatient status if prolonged hospital stay necessary or if hemodialysis is to be performed. Family Medicine follow-up with Dr. Machado. Nephrology follow-up with Dr. Wetzel. . Resuscitation Status VTE Prophylaxis Will order VTE Prophylaxis: Yes . Physical Exam (per Admitting): General Appearance: no apparent distress, + mild distress, + thin Head: atraumatic Eyes: normal inspection, PERRL, EOMI, sclerae normal, + pertinent finding ( Conjunctivae clear) ENT: normal ENT inspection, hearing grossly normal, + pertinent finding ( Oropharynx clear) Neck: thyroid normal, trachea midline Respiratory/Chest: lungs clear (Auscultation and percussion), no respiratory distress, no accessory muscle use Cardiovascular: regular rate, rhythm, no edema, no gallop, no JVD, no murmur , normal peripheral pulses Abdomen/GI: normal bowel sounds, soft, no organomegaly, + pertinent finding (Lower abdominal peritoneal dialysis catheter with surrounding tenderness; no erythema or drainage) Extremities/Musculoskelatal: no calf tenderness, + pertinent finding (No cyanosis or digital clubbing; AV fistula left upper extremity) Neurologic/Psych: finish sander II-XII nml as tested (PERRL, EOMI, no facial palsy, no dysarthria), no motor/sensory deficits (Motor testing of upper and lower extremities grossly intact), alert, normal mood/affect, oriented x 3 Skin: normal color, warm/dry, no rash Lymphatic: no adenopathy (Cervical) Hospital Course Constipation Will try Suppository and Fleet enema today Increase ambulation and more fluid Bowel moved Feels a lot better today LEFT SIDED ABDOMINAL PAIN Due to malfunction peritoneal dialysis cath CT abd showed malpositioned left lower quadrant peritoneal dialysis catheter. Catheter coiled within an extraperitoneal fluid collection that measures 7 x 5.6 x 4.4 cm No signs of infection No leukocytosis,procalcitonin normal and afebrile Appreciate Vascular Surgery input Plan to reposition the peritoneal dialysis cath on Wednesday Continue pain control Plan to reposition the peritoneal dialysis cath on Wednesday S/P Repositioning of the peritoneal catheter--can be used in 1 week pain is controlled HYPERKALEMIA Due to CKD stage 5 completed HD today case discussed with nephro stable CKD V Had HD done today -10/05/17 Nephrology on board No sign of fluid overload HD tomorrow before discharge INTRADUCTAL PAPILLARY MUCINOUS NEOPLASM CT Abd showed . 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 Delacruz for the last 3yrs as per patient Stable HYPERTENSION BP Stable Possible related to pain Continue nifedipine, furosemide and hydralazine Will add hydralazine IV prn BP is reasonably controlled PULMONARY ATELECTASIS Incentive spirometry. Stable CELIAC DISEASE Gluten-free diet. 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 Well-controlled. Hgb A1C 6.4 on 08/09/17. Continue Lantus. DIABETIC NEUROPATHY Continue pregabalin. MULTIPLE SCLEROSIS Continue teriflunomide. PT / OT VTE PROPHYLAXIS SCD's. On heparin subd RESUSCITATION STATUS FULL CODE DISPOSITION Family Medicine follow-up with Dr. Machado. Nephrology follow-up with Dr. Wetzel. Consultants: Vascular Nephro No ride to go home today ,some confusion today Likely home tomorrow after dialysis Total time spent on discharge = 35 minutes This includes examination of the patient, discharge planning, medication reconciliation, and communication with other providers. Discharge Instructions Date of Service Oct 09, 2017. Admission Reason for Admission: Ab Pain, Malposition Peritoneal Dialysis Catheter Discharge Discharge Diagnosis / Problem: Abdominal Pain,Correction of Malpositioned PD catheter Discharge Goals Goal(s): Prevent Disease Progression Activity Recommendations Activity Limitations: resume your previous activity . Instructions / Follow-Up Instructions / Follow-Up Please make an appointment with your PCP in 1 week.Keep doing Hemodialysis and per Nephrology Current Hospital Diet Patient's current hospital diet: Gluten Free Diet, Regular Diet Discharge Diet Recommended Diet: Regular Diet, Gluten Free Diet Procedures Procedures Performed: Laparoscopic Reposition of Peritoneal Catheter Pending Studies Studies pending at discharge: no Medical Emergencies . Who to Call and When: Medical Emergencies: If at any time you feel your situation is an emergency, please call 911 immediately. . Non-Emergent Contact Non-Emergency issues call your: Primary Care Provider . Past History Medical & Surgical History: (1) Malposition of peritoneal dialysis catheter (2) ESRD (end stage renal disease) on dialysis (3) DM type 2 (diabetes mellitus, type 2) (4) Multiple sclerosis (5) Celiac disease (6) Abdominal pain (7) Peritoneal dialysis catheter dysfunction (8) Diabetic retinopathy (9) Diabetic neuropathy (10) Diabetes mellitus due to underlying condition with chronic kidney disease on chronic dialysis, with long-term current use of insulin (11) Status post cholecystectomy (12) AV fistula (13) Peritoneal dialysis catheter in place . "Provider Documentation" section prepared by Elier Arteaga. . <Electronically signed by Elier Arteaga M.D.> Signed: 10/09/17 [id number] Signed: Additional Copies To Pedro Machado M.D.
--- NOTE | 2017-11-03 16:24 | OPERATIVE REPORT ---
DATE OF OPERATION: 10/06/2017 PREOPERATIVE DIAGNOSIS: Malpositioned continuous ambulatory peritoneal dialysis catheter. POSTOPERATIVE DIAGNOSIS: Same. PROCEDURE: Laparoscopic repositioning of peritoneal dialysis catheter. SURGEON: Dr. Carroll. LINE TECHNICIAN: Dr. Zafar Flores and Dr. Renee Weller. ANESTHETIC: General endotracheal. PROCEDURE INDICATIONS: The patient is a 67-year-old gentleman who has a PD catheter in place which apparently is not entered the abdominal cavity and it sits preperitoneal. Repositioning with laparoscopic guidance was recommended. He understood the risks, options and benefits and agreed to have this procedure. OPERATION AND FINDINGS: The patient was taken to operating room and placed in supine position. After general anesthesia was accomplished, the abdomen was prepped and draped in a sterile manner. Using 3 mm ports, 3 punctures were made into the abdominal cavity. After first one the abdominal cavity was insufflated. Laparoscopic exam showed the PD catheter be preperitoneal. Using the sharp dissection with scissors, the peritoneum was incised. The catheter was grabbed and pulled down into the abdominal cavity. It was then repositioned down into the pelvis. No bleeding was seen within the abdominal cavity. The ports were then removed after the insufflation air was released. Dressings were placed on the puncture site. The patient left the operating room in satisfactory condition and tolerated the procedure well. I attest to the content of the Intraoperative Record and any orders documented therein. Any exception s are noted below.
== END 2017-10-10 08:33 | disposition home or self-care (01) | DRG 981 ==
LOC: C.4E 19:55 → INTOOBSV 19:55 → OBSVTOIN 10-01 11:07
PROVIDERS: ADMIT Hospitalist; ATTEND Internal Medicine
PROC: 0WWG43Z Revision of Infusion Device in Peritoneal Cavity, Percutaneous Endoscopic Approach (ICD-10-PCS; principal; 2017-10-06 07:30)
DX: T85.621A Displacement of intraperitoneal dialysis catheter, initial encounter (principal); N18.6 End stage renal disease; J98.11 Atelectasis; I12.0 Hypertensive chronic kidney disease with stage 5 chronic kidney disease or end stage renal disease; C25.9 Malignant neoplasm of pancreas, unspecified; K86.1 Other chronic pancreatitis; E87.5 Hyperkalemia; E11.22 Type 2 diabetes mellitus with diabetic chronic kidney disease; E11.40 Type 2 diabetes mellitus with diabetic neuropathy, unspecified; E11.319 Type 2 diabetes mellitus with unspecified diabetic retinopathy without macular edema; E11.21 Type 2 diabetes mellitus with diabetic nephropathy; G35 Multiple sclerosis; E78.5 Hyperlipidemia, unspecified; D63.1 Anemia in chronic kidney disease; K90.0 Celiac disease; M19.90 Unspecified osteoarthritis, unspecified site; Z79.899 Other long term (current) drug therapy; Z79.4 Long term (current) use of insulin; Z99.2 Dependence on renal dialysis; Z87.891 Personal history of nicotine dependence; Z88.5 Allergy status to narcotic agent; Z88.0 Allergy status to penicillin; Z88.6 Allergy status to analgesic agent; Z88.8 Allergy status to other drugs, medicaments and biological substances; Z88.1 Allergy status to other antibiotic agents; Z82.49 Family history of ischemic heart disease and other diseases of the circulatory system; Z83.3 Family history of diabetes mellitus; Y83.8 Other surgical procedures as the cause of abnormal reaction of the patient, or of later complication, without mention of misadventure at the time of the procedure